=== PATIENT | female | born 2000 | race Caucasian/White ===

== ENCOUNTER 2021-03-05 18:09 | Emergency (ER) | payer OTHER, SELFPAY ==
[2021-03-05 18:20] VITALS: BP 135/65; PULSE 109; RESP 16; TEMP 37.2; O2SAT 99
--- NOTE | 2021-03-05 18:25 | ED.DENTAL ---
HPI - Dental/Oral General Chief complaint: Dental/Oral Stated complaint: tooth pain Time Seen by Provider: 03/05/21 18:25 Source: patient and RN notes reviewed History of Present Illness HPI Narrative: Patient is a 20-year-old female who presents the urgent care with complaints of lower right dental pain. Patient states that she has wisdom tooth pain approximately once per month and it tends to go away on its own. Patient states that she has been attempting to find a dentist/oral surgeon to remove her wisdom teeth and no one accepts her insurance. Patient states that she has been taking Tylenol and ibuprofen for the pain. Patient is reporting of pain for the last 2 to 4 days to the lower right. No other acute complaints. Denies of fever, chills, nausea, vomiting, bad taste in the mouth. No acute distress noted. Patient aware of the plan of care. Some parts of this dictation were generated by voice recognition software and may contain typographical and/or grammatical inaccuracies. Related Data Allergies Allergy/AdvReac Type Severity Reaction Status Date / Time No Known Allergies Allergy Verified 03/05/21 18:33 Review of Systems Review of Systems: Narrative: CONSTITUTIONAL: Denies fever, chills, or sweats. EYES: Denies visual changes, redness, or discharge. ENT: Denies rhinorrhea, congestion, sore throat, or otalgia. Reports of lower right wisdom tooth pain CARDIOVASCULAR: Denies chest pain, palpitations, or edema. RESPIRATORY: Denies cough or dyspnea. GASTROINTESTINAL: Denies abdominal pain, nausea, vomiting, or diarrhea. GENITOURINARY: Denies dysuria or hematuria. SKIN: Denies rash or itching. MUSCULOSKELETAL: Denies back pain, joint pain, or myalgia. NEUROLOGIC: Denies headache, numbness, or weakness. All other systems reviewed are negative, except as documented in HPI. PMFSH Comments At the time of my signature, I reviewed and agree with the nursing past medical, surgical, social, and family history. There is no relevant family history pertinent to the patient complaint. Exam Narrative: Exam Narrative: GENERAL: This is a well-nourished, well-developed patient, in no apparent distress. HEAD: normocephalic, atraumatic. EYES: PERRL. Sclera clear/white. Vision is grossly intact. EARS: External ears normal NOSE: External nose normal with no obvious nasal discharge, nares without redness, no rhinorrhea. THROAT: Mucous membranes moist, posterior pharynx clear. DENTAL: Right lower impacted wisdom tooth, tooth #32 without any notable abscess, erythema or edema NECK: Neck supple CARDIOVASCULAR: Regular rate and rhythm without murmurs, gallops, or rubs. RESPIRATORY: Clear to auscultation. Breath sounds equal bilaterally. No wheezes, rales, or rhonchi. SKIN: warm, intact with no suspicious lesions or rash, good texture and turgor. NEURO: awake, alert, and oriented to person, place and time. There were no obvious focal neurologic abnormalities. EXTREMITIES: No clubbing, cyanosis, or edema. Course Vital Signs Vital signs: Vital Signs Temperature 98.9 F 03/05/21 18:20 Pulse Rate 109 H 03/05/21 18:20 Respiratory Rate 16 03/05/21 18:20 Blood Pressure 135/65 03/05/21 18:20 Pulse Oximetry 99 03/05/21 18:20 Temperature 98.9 F 03/05/21 18:20 Pulse Rate 109 H 03/05/21 18:20 Respiratory Rate 16 03/05/21 18:20 Blood Pressure 135/65 03/05/21 18:20 Pulse Oximetry 99 03/05/21 18:20 Reviewed MDM - Dental/Oral MDM Narrative Medical decision making narrative: Advised the patient to use a ice pack to the lower right jaw as needed for comfort. Continue to take ibuprofen/Tylenol as needed for pain. Be aware that you should not be taking ibuprofen if you are . It is not currently abscessed therefore if you have increased pain associated with swelling, fever, nausea, vomiting, drainage near the area?follow-up. Follow-up with a dentist/PCP within 2 to 5 days or for worsening symptoms or failure to imp
== END 2021-03-05 18:40 | disposition home or self-care (01) ==
PROVIDERS: Emergency Provider Nurse Practitioner Family; PCP Internal Medicine Infectious Disease
DX: K08.89 Other specified disorders of teeth and supporting structures (principal); K01.1 Impacted teeth
CPT/HCPCS: 99213; G0463

== ENCOUNTER 2021-11-13 09:39 | Emergency (ER) | payer OTHER, SELFPAY ==
[2021-11-13 09:46] VITALS: BP 120/68; PULSE 122; RESP 16; TEMP 36.4; O2SAT 100
--- NOTE | 2021-11-13 09:53 | ED.URI ---
HPI - URI/Sore Throat General Chief Complaint: Upper Respiratory Infection Stated Complaint: Cough/Sore Throat Time Seen by Provider: 11/13/21 09:53 Source: patient Mode of arrival: ambulatory Limitations: no limitations History of Present Illness HPI Narrative: 21-year-old female presents with complaint of congestion, sore throat, cough, chills, body aches for 4 days. Low-grade fever. 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 Would like a Covid and flu test. Patient reports history of tachycardia. Wore a Holter monitor and had echo 1 year ago that was normal. All systems reviewed and negative except as noted above. Related Data Home Medications Medication Instructions Recorded Confirmed norgestimate-ethinyl estradiol 1 tablet PO DAILY 11/13/21 11/13/21 [Mel] Allergies Allergy/AdvReac Type Severity Reaction Status Date / Time No Known Allergies Allergy Verified 11/13/21 09:42 Review of Systems Review of Systems: CONSTITUTIONAL: Reports fever, chills, or sweats. EYES: Denies visual changes, redness, or discharge. ENT: Reports rhinorrhea, congestion, sore throat. Denies otalgia. CARDIOVASCULAR: Denies chest pain, palpitations, or edema. RESPIRATORY: Reports cough. Denies dyspnea. GASTROINTESTINAL: Denies abdominal pain, nausea, vomiting, or diarrhea. GENITOURINARY: Denies dysuria or hematuria. SKIN: Denies rash or itching. MUSCULOSKELETAL: Denies back pain, joint pain, or myalgia. NEUROLOGIC: Denies headache, numbness, or weakness. PSYCHIATRIC: Denies anxiety or depression. All other systems reviewed are negative, except as documented in HPI. PMFSH Comments At time of signature, agree with nursing past medical, surgical, social and family history. There is no relevant family history pertinent to the presenting complaint. Exam Narrative: GENERAL: This is a well-nourished, well-developed patient, in no apparent distress. HEAD: normocephalic, atraumatic. EYES: PERRL. Sclera clear/white. Vision is grossly intact. EARS: External ears normal, auditory canals clear and without drainage, TMs normal without perforation. Hearing grossly intact. NOSE: External nose normal with no obvious nasal discharge, nares without redness, no rhinorrhea. THROAT: Mucous membranes moist. Mild erythema. NECK: Neck supple, non-tender without lymphadenopathy, masses or thyromegaly. CARDIOVASCULAR: Tachycardia and normal rhythm without murmurs, gallops, or rubs. RESPIRATORY: Clear to auscultation. Breath sounds equal bilaterally. No wheezes, rales, or rhonchi. SKIN: warm, Dry, intact with no suspicious lesions or rash, good texture and turgor. NEURO: awake, alert, and oriented to person, place and time. There were no obvious focal neurologic abnormalities. EXTREMITIES: Normal range of motion Course Course Level of Care: Express Care Visit Vital Signs Vital signs: Vital Signs Temperature 36.4 C L 11/13/21 09:46 Pulse Rate 122 H 11/13/21 09:46 Respiratory Rate 16 11/13/21 09:46 Blood Pressure 120/68 11/13/21 09:46 Pulse Oximetry 100 11/13/21 09:46 Temperature 36.4 C L 11/13/21 09:46 Pulse Rate 122 H 11/13/21 09:46 Respiratory Rate 16 11/13/21 09:46 Blood Pressure 120/68 11/13/21 09:46 Pulse Oximetry 100 11/13/21 09:46 Reviewed MDM - URI/Sore Throat MDM Narrative Medical decision making narrative: Patient is aware of diagnosis, understands and agrees to treatment plan. Anticipatory guidance given. Patient agrees to follow-up as directed and is aware of reasons to seek care at the emergency department. Portions of this record may have been created with voice recognition software Differential Diagnosis Differential diagnosis: Likely upper respiratory infection, sinusitis, viral infection, bronchitis, influenza and pharyngitis Lab Data Labs: Lab Results 11/13/21 Range/Units Unknown POC SARS CoV-2 Ag Negative (Negative) Influenza A Screen Negative
== END 2021-11-13 10:35 | disposition home or self-care (01) ==
PROVIDERS: Emergency Provider Nurse Practitioner Family; PCP Internal Medicine Infectious Disease
DX: J06.9 Acute upper respiratory infection, unspecified (principal); Z20.822 Contact with and (suspected) exposure to COVID-19
CPT/HCPCS: 87081; 87426; 87804; 87880; 99213; C9803; G0463

== ENCOUNTER 2022-01-27 13:49 | Emergency (ER) | payer OTHER, SELFPAY ==
[2022-01-27 13:56] VITALS: BP 113/42; PULSE 117; RESP 16; TEMP 36.7; O2SAT 99
--- NOTE | 2022-01-27 14:24 | ED.URI ---
HPI - URI/Sore Throat General Chief Complaint: Upper Respiratory Infection Stated Complaint: sore throat back aches Time Seen by Provider: 01/27/22 14:15 Source: patient and RN notes reviewed Mode of arrival: ambulatory Limitations: no limitations History of Present Illness HPI Narrative: 21-year-old female presents with concern for sore throat, painful swallowing, upper left back ache. She reports history of urinary tract infections. She reports she is also had sinus congestion, pressure, cough for several weeks, she was prescribed an antibiotic, however she was unable to finish antibiotic because it gave her a yeast infection. She reports her sore throat started yesterday. She reports her backache is worse with coughing and deep breathing. MD elicited complaint: sore throat Related Data Home Medications Medication Instructions Recorded Confirmed norgestimate 0.25 mg-ethinyl 1 tablet PO DAILY 11/13/21 01/27/22 estradiol 35 mcg tablet (Mel) Allergies Allergy/AdvReac Type Severity Reaction Status Date / Time No Known Allergies Allergy Verified 11/13/21 09:42 Review of Systems Review of Systems: CONSTITUTIONAL: Reports malaise. Denies chills, sweats, or fever. EYES: Denies visual changes, redness, or discharge. ENT: Reports rhinorrhea, congestion, sore throat. CARDIOVASCULAR: Denies chest pain, palpitations, or edema. RESPIRATORY: Reports cough. Denies dyspnea. GASTROINTESTINAL: Denies abdominal pain, nausea, vomiting, diarrhea SKIN: Denies rash or itching. MUSCULOSKELETAL: Denies myalgia. Reports left upper back pain NEUROLOGIC: Denies headache. All systems reviewed & are unremarkable except as noted in HPI and below [facility] Comments At time of signature, agree with nursing past medical, surgical, social and family history. There is no relevant family history pertinent to the presenting complaint Exam Narrative: GENERAL: Toxic appearing and in no acute distress. HEAD: Normocephalic EYES: PERRLA, conjunctivae clear ENT: Nares clear, turbinates edematous and erythematous. Mucous membranes moist. TM pearly william with dull light reflex bilaterally; no tragal tenderness. Oropharynx erythematous without lesions. Tonsils enlarged and without exudate, no drooling, no hoarseness, no trismus, uvula midline. NECK: Supple. No lymphadenopathy CHEST: Clear to auscultation, breath sounds equal. No wheezing, rhonchi, rales, or stridor. No respiratory distress, speaks in full sentences. MUSC: No tenderness to the left upper back, no bruising HEART: Regular rate and rhythm. No murmur heard. SKIN: Warm, dry, no rash. NEURO: Alert and oriented x3. PSYCH: Normal mood and affect Course Course Emergency Course: Patient's urinalysis looks unremarkable, however will cover strep bacteria with Augmentin to also cover any potential urine bacteria Patient is aware of diagnosis, understands and agrees to treatment plan. Anticipatory guidance given. Patient agrees to follow-up as directed and is aware of reasons to seek care at the emergency department. Portions of this record may have been created with voice recognition software Level of Care: Express Care Visit Vital Signs Vital signs: Vital Signs Temperature 98.0 F 01/27/22 13:56 Pulse Rate 117 H 01/27/22 13:56 Respiratory Rate 16 01/27/22 13:56 Blood Pressure 113/42 L 01/27/22 13:56 Pulse Oximetry 99 01/27/22 13:56 Oxygen Delivery Room Air 01/27/22 13:56 Temperature 98.0 F 01/27/22 13:56 Pulse Rate 117 H 01/27/22 13:56 Respiratory Rate 16 01/27/22 13:56 Blood Pressure 113/42 L 01/27/22 13:56 Pulse Oximetry 99 01/27/22 13:56 Oxygen Delivery Room Air 01/27/22 13:56 Reviewed. MDM - URI/Sore Throat MDM Narrative Medical decision making narrative: Differential diagnosis considered: Manzo virus, strep pharyngitis, allergic rhinitis, upper respiratory tract infection, sinusitis, rhinosinusitis, nasopharyngitis. viral pharyngitis, otitis me
== END 2022-01-27 14:32 | disposition home or self-care (01) ==
PROVIDERS: Emergency Provider Nurse Practitioner; PCP Internal Medicine Infectious Disease
DX: J02.0 Streptococcal pharyngitis (principal)
CPT/HCPCS: 81003; 87880; 99213; G0463

== ENCOUNTER 2022-02-16 12:21 | Emergency (ER) | payer OTHER, SELFPAY ==
[2022-02-16 12:40] VITALS: BP 117/73; PULSE 78; RESP 18; TEMP 37.2; O2SAT 100
--- NOTE | 2022-02-16 12:43 | ED.URI ---
HPI - URI/Sore Throat General Chief Complaint: Upper Respiratory Infection Stated Complaint: Sore Throat Time Seen by Provider: 02/16/22 12:45 Source: patient, RN notes reviewed and old records reviewed Mode of arrival: ambulatory Limitations: no limitations History of Present Illness HPI Narrative: 21-year-old female who presents to [facility] care with complaints of right sided throat pain constant on the right side since yesterday. Patient reports that she was treated on the of this month for strep throat and took 7 days worth of oral medication but was going camping and had no way to store the liquid medication so didn't complete the prescription. Patient reports that her throat pain was worse last night and she also has had some nasal drainage for which she has been taking Zyrtec. MD elicited complaint: sore throat Pertinent past history: other (strep throat) Onset (ago): day(s) (2) Related Data Home Medications Medication Instructions Recorded Confirmed norgestimate 0.25 mg-ethinyl 1 tablet PO DAILY 11/13/21 02/16/22 estradiol 35 mcg tablet (Mel) Allergies Allergy/AdvReac Type Severity Reaction Status Date / Time No Known Allergies Allergy Verified 02/16/22 12:42 Review of Systems Review of Systems: CONSTITUTIONAL: Denies fever, chills, or sweats. EYES: Denies visual changes, redness, or discharge. ENT: Positive rhinorrhea, congestion,positive for sore throat, no otalgia. CARDIOVASCULAR: Denies chest pain, palpitations, or edema. RESPIRATORY: Denies cough or dyspnea. GASTROINTESTINAL: Denies abdominal pain, nausea, vomiting, or diarrhea. GENITOURINARY: Denies dysuria or hematuria. SKIN: Denies rash or itching. MUSCULOSKELETAL: Denies back pain, joint pain, or myalgia. NEUROLOGIC: Denies headache, numbness, or weakness. PSYCHIATRIC: Denies anxiety or depression. [facility] Past Medical History Medical History (Updated 02/18/22 @ 08:20 by Laura Lowe NP) Sepsis due to urinary tract infection Surgical History Surgical History (Updated 02/18/22 @ 08:15 by Laura Lowe NP) History of dental surgery gums History of tonsillectomy Social History Social History (Updated 02/16/22 @ 13:06 by Laura L. Chrissy, [employer]) Smoking status: Never smoker Alcohol intake: never Substance use: never Living arrangements: with family Gender identity (if verbalized by the patient): Female Comments At time of signature, agree with nursing past medical, surgical, social and family history. There is no relevant family history pertinent to the presenting complaint Exam Narrative: GENERAL: Well-appearing, well-nourished, and in no acute distress. HEAD: Normocephalic, atraumatic. EYES: PERRLA and EOMI. ENT: Nares with minimal redness clear rhinorrhea no epistaxis. Mucous membranes moist.TM's normal with good light reflex, throat with some redness no lesions or exudates, no tonsils present. NECK: Supple.no lymphadenopathy CHEST: Clear to auscultation. No respiratory distress.SAO2 100% on room air HEART: Regular rate and rhythm. No murmur heard. Normal peripheral pulses. ABDOMEN: Soft, nontender, nondistended, normal active bowel sounds. EXTREMITIES: Normal range of motion. No edema. SKIN: Warm, dry, no rash. NEURO: No focal deficits. Alert and oriented x3. Course Course Level of Care: Express Care Visit Vital Signs Vital signs: Vital Signs Temperature 37.2 C 02/16/22 12:40 Pulse Rate 78 02/16/22 12:40 Respiratory Rate 18 02/16/22 12:40 Blood Pressure 117/73 02/16/22 12:40 Pulse Oximetry 100 02/16/22 12:40 Oxygen Delivery Room Air 02/16/22 12:40 Temperature 37.2 C 02/16/22 12:40 Pulse Rate 78 02/16/22 12:40 Respiratory Rate 18 02/16/22 12:40 Blood Pressure 117/73 02/16/22 12:40 Pulse Oximetry 100 02/16/22 12:40 Oxygen Delivery Room Air 02/16/22 12:40 MDM - URI/Sore Throat Differential Diagnosis Differential diagnosis: Likely upper respiratory
== END 2022-02-16 13:11 | disposition home or self-care (01) ==
PROVIDERS: Emergency Provider Registered Nurse; PCP Internal Medicine Infectious Disease
DX: J06.9 Acute upper respiratory infection, unspecified (principal)
CPT/HCPCS: 87081; 87880; 99213; G0463

== ENCOUNTER 2022-04-30 12:50 | Outpatient (CLI) | payer OTHER, SELFPAY ==
[2022-04-30 13:50] LABS: Beta HCG Quantitative < 2.39 mIU/ML
== END 2022-04-30 12:51 | disposition home or self-care (01) ==
LOC: ANHLAB 12:59
PROVIDERS: PCP Internal Medicine Infectious Disease; Visit Provider Advanced Practice Midwife
DX: N92.0 Excessive and frequent menstruation with regular cycle (principal)
CPT/HCPCS: 36415; 84702

== ENCOUNTER 2022-05-06 12:45 | Outpatient (CLI) | payer OTHER, SELFPAY ==
[2022-05-06 14:52] LABS: Beta HCG Quantitative < 2.39 mIU/ML
== END 2022-05-06 12:46 | disposition home or self-care (01) ==
PROVIDERS: PCP Internal Medicine Infectious Disease; Visit Provider Obstetrics & Gynecology
DX: N91.2 Amenorrhea, unspecified (principal)
CPT/HCPCS: 36415; 84702

== ENCOUNTER 2022-05-20 18:48 | Emergency (ER) | payer OTHER, SELFPAY ==
--- NOTE | ~2022-05-20 | US_ITS ---
EXAMINATION: US pelvic complete w TV DATE: 05/20/2022 21:49 INDICATION: Right lower quadrant abdominal pain. Vaginal bleeding. TECHNIQUE: Multiple transabdominal and endovaginal sonographic images of the pelvis were obtained. COMPARISON: None. FINDINGS: The uterus measures 1.8 x 4.8 x 2.7 cm. The endometrial complex measures 13 mm in thickness. 3 mm an echoic nabothian cyst at the cervix. There is a minimal amount of anechoic fluid measuring 1 mm in th ickness within the endocervical canal. The right ovary measures 3.9 x 3.1 x 1.9 cm. The left ovary me asures 2.8 x 1.8 x 2.2 cm. There are a few subcentimeter anechoic cysts/follicles in both ovaries. Va scular flow with arterial waveforms identified in both ovaries on color Doppler. There is no free flu id in the pelvis. Minimal anechoic likely physiologic free fluid in the cul-de-sac. IMPRESSION: 1. Minimal likely physiologic free fluid in the cul-de-sac and minimal fluid within the endocervical canal. 2. A few subcentimeter cysts/follicles in both ovaries, each of which demonstrates internal arterial vascular flow on color Doppler. Reviewed, dictated and finalized at location A. IMPRESSION: 1. Minimal likely physiologic free fluid in the cul-de-sac and minimal fluid wi thin the endocervical canal. 2. A few subcentimeter cysts/follicles in both ovaries, each of which demonstra mulu internal arterial vascular flow on color Doppler.
[2022-05-20 18:50] VITALS: BP 125/84; PULSE 78; RESP 16; TEMP 36.7; O2SAT 100
--- NOTE | 2022-05-20 19:09 | ED.FEMALEGU ---
HPI - Female Genitourinary General Chief complaint: Vaginal Bleeding <Leyla Higgins PA-C - Last Filed: 05/20/22 22:40> Stated complaint: heavy bleeding <JUAN Johnson Last Filed: 05/20/22 22:40> Time Seen by Provider: 05/20/22 19:02 <JUAN Johnson Last Filed: 05/20/22 22:40> Source: patient <JUAN Johnson Last Filed: 05/20/22 22:40> Mode of arrival: ambulatory <JUAN Johnson Last Filed: 05/20/22 22:40> Limitations: no limitations <JUAN Johnson Last Filed: 05/20/22 22:40> History of Present Illness HPI Narrative: Patient is a 21-year-old female who presents to the ED with report of vaginal bleeding. Patient reports she last had her menstrual cycle on 05/07, which was normal. She then developed lower abdominal cramping today, along with bright red vaginal bleeding. She called her PUBLISHING SYSTEMS ANALYST and was referred here for further evaluation. She notes the bleeding has been mild. She is not soaking through pads or tampons. She has had some urinary urgency as well, but denies dysuria, hematuria, nausea, vomiting. She has not taken anything for pain today. Patient has an appointment to see her PUBLISHING SYSTEMS ANALYST on Wednesday. Patient is not currently on any control. <JUAN Johnson Last Filed: 05/20/22 22:40> Related Data Home medications: Home Medications Medication Instructions Recorded Confirmed norgestimate 0.25 mg-ethinyl 1 tablet PO DAILY 11/13/21 02/16/22 estradiol 35 mcg tablet (Mel) <JUAN Johnson Last Filed: 05/20/22 22:40> Allergies/Adverse reactions: Allergies Allergy/AdvReac Type Severity Reaction Status Date / Time No Known Allergies Allergy Verified 05/20/22 19:05 <JUAN Johnson Last Filed: 05/20/22 22:40> Review of Systems Review of Systems: CONSTITUTIONAL: Denies fever, chills, or sweats. CARDIOVASCULAR: Denies chest pain. RESPIRATORY: Denies dyspnea. GASTROINTESTINAL: Reports lower abdominal cramping. Denies nausea, vomiting. GENITOURINARY: Reports urinary urgency. Denies dysuria or hematuria. MUSCULOSKELETAL: Denies back pain, joint pain, or myalgia. <Leyla Higgins PA-C - Last Filed: 05/20/22 22:40> All systems reviewed & are unremarkable except as noted in HPI and below <Leyla Higgins PA-C - Last Filed: 05/20/22 22:40> [facility] Past Medical History Medical History: Medical History Sepsis due to urinary tract infection <Leyla Higgins PA-C - Last Filed: 05/20/22 22:40> Surgical History Surgical History: Surgical History History of dental surgery gums History of tonsillectomy <Leyla Higgins PA-C - Last Filed: 05/20/22 22:40> Social History Social History: Social History Smoking status: Never smoker Alcohol intake: never Substance use: never Gender identity (if verbalized by the patient): Female <Leyla Higgins PA-C - Last Filed: 05/20/22 22:40> Exam Narrative: GENERAL: Well appearing, obese, non-toxic, in no acute distress. HEAD: Normocephalic, atraumatic. NECK: Supple. No adenopathy, no masses. RESPIRATORY: Airway patent, respirations nonlabored. Clear to auscultation bilaterally, no rales, rhonchi, wheezing. CARDIOVASCULAR: Regular rate and rhythm without murmurs, rubs, or gallops. Peripheral pulses 2+ and equal bilaterally. ABDOMINAL: Soft, mild tenderness to palpation in suprapubic region, RLQ, nondistended, no hepatosplenomegaly. Normoactive BS. PELVIC: Normal external genitalia. No genital lesions. Some mild bleeding coming from cervical os, dark red, mixed with watery yellow discharge. Blood easily cleared from vaginal vault. No signs of pooling or hemorrhage. No signific
[2022-05-20 19:41] LABS: Basophils Percent Auto 0.2 % (0.2-1.2); Eosinophils Absolute Auto 0.1 K/mm3 (0-0.3); Eosinophils Percent Auto 0.9 % (0-4.4); Hematocrit 41.2 % (37.0-47.0); Immature Granulocyte Absolute 0.03 K/mm3 (0.00-0.031); Immature Granulocyte Percent A 0.3 % (0-0.5); Lymphocytes Absolute Auto 2.88 K/mm3 (0.9-3.2); Lymphocytes Percent Auto 28.7 % (18.3-44.2); Mean Corpuscular Volume 88.2 fl (80-100); Mean Platelet Volume 9.4 fl (7.4-10.4); Monocytes Absolute Auto 0.6 K/mm3 (0.1-0.6); Monocytes Percent Auto 5.7 % (2.6-8.5); Neutrophils Absolute Auto 6.5 K/mm3 (1.3-6.7); Neutrophils Percent Auto 64.2 % (45.5-73.1); Platelet Count Result 251 k/mm3 (150-375); Red Blood Count 4.67 M/mm3 (4.2-5.4); Red Cell Distribution Width 12.7 % (11.5-14.5); White Blood Count 10.1 K/mm3 (4.5-10.0)
[2022-05-20 19:58] LABS: Alanine Aminotransferase 43 U/L (6-35); Albumin Level 4.7 g/dL (3.5-5.1); Alkaline Phosphatase 83 U/L (38-126); Anion Gap 12 mmol/L (8-16); Aspartate Amino Transferase 36 U/L (14-36); Bilirubin,Total 0.7 mg/dL (0.2-1.3); Blood Urea Nitrogen 13 mg/dL (7-17); Calcium 9.4 mg/dL (8.4-10.2); Carbon Dioxide 25 mmol/L (22-30); Chloride 101 mmol/L (98-107); Estimated CRCL calculation 142 ml/min; Estimated Glomerular Filt Rate > 60; Glucose 91 mg/dL (65-110); Sodium 138 mmol/L (137-145)
[2022-05-20 20:01] LABS: Appearance Urine Clear (Clear); Bilirubin Urine Negative (Negative); Blood Urine 2+ (Negative); Color Urine Yellow (Yellow); Glucose Urine UA Negative (Negative); Ketones Urine 1+ mg/dL (Negative); Leukocyte Esterase Ur Negative LEU/UL (Negative); Nitrate Urine Negative (Negative); Protein Urine Negative (Negative); Specific Grav Ur >= 1.030 (1.001-1.035); Urobilinogen Urine 0.2 mg/dL (<2.0); pH Urine 5.5 (5.0-9.0)
[2022-05-20 20:05] LABS: Mucus Urine Rare /lpf; RBC Urine 21-50 /hpf (0-2); Squamous Epithelial Cell Urine Few /hpf (Few); WBC Urine 0-3 /hpf
[2022-05-20 20:09] LABS: Add Urine Microscopic? YES
[2022-05-20 22:47] VITALS: PULSE 88; RESP 18; O2SAT 98
== END 2022-05-20 22:49 | disposition home or self-care (01) ==
PROVIDERS: Nurse Practitioner Family; Physician Assistant; Emergency Provider Emergency Medicine; PCP Internal Medicine Infectious Disease
DX: N93.8 Other specified abnormal uterine and vaginal bleeding (principal); R10.30 Lower abdominal pain, unspecified
CPT/HCPCS: 36415; 76830; 76856; 80053; 81001; 81025; 85025; 87070; 87491; 87591; 87808; 99284

== ENCOUNTER 2022-06-25 11:54 | Outpatient (RCR) | payer OTHER, SELFPAY ==
[2022-06-25 12:58] LABS: Beta HCG Quantitative < 2.39 mIU/ML
== END 2022-09-23 23:59 | disposition home or self-care (01) ==
LOC: ANHLAB 11:54
PROVIDERS: PCP Internal Medicine Infectious Disease; Visit Provider Advanced Practice Midwife
DX: N91.2 Amenorrhea, unspecified (principal)
CPT/HCPCS: 36415; 84702; 85461; 86850; 86900; 86901

== ENCOUNTER 2022-11-01 20:24 | Emergency (ER) | payer OTHER, SELFPAY ==
[2022-11-01 20:25] VITALS: BP 123/71; PULSE 90; RESP 16; TEMP 36.6; O2SAT 100
[2022-11-01 21:35] LABS: Basophils Percent Auto 0.2 % (0.2-1.2); Eosinophils Absolute Auto 0.1 K/mm3 (0-0.3); Eosinophils Percent Auto 0.6 % (0-4.4); Hematocrit 41.3 % (37.0-47.0); Hemoglobin 13.6 g/dL (12.0-15.0); Immature Granulocyte Absolute 0.04 K/mm3 (0.00-0.031); Immature Granulocyte Percent A 0.4 % (0-0.5); Lymphocytes Absolute Auto 1.93 K/mm3 (0.9-3.2); Lymphocytes Percent Auto 18.8 % (18.3-44.2); Mean Corpuscular HGB Conc 32.9 g/dl (32-36); Mean Corpuscular Volume 88.1 fl (80-100); Mean Platelet Volume 9.3 fl (7.4-10.4); Monocytes Absolute Auto 0.7 K/mm3 (0.1-0.6); Monocytes Percent Auto 6.3 % (2.6-8.5); Neutrophils Absolute Auto 7.5 K/mm3 (1.3-6.7); Neutrophils Percent Auto 73.7 % (45.5-73.1); Platelet Count Result 239 k/mm3 (150-375); Red Blood Count 4.69 M/mm3 (4.2-5.4); Red Cell Distribution Width 13.2 % (11.5-14.5); White Blood Count 10.2 K/mm3 (4.5-10.0)
[2022-11-01 21:41] LABS: Appearance Urine Clear (Clear); Bacteria Urine None Seen /hpf; Bilirubin Urine Negative (Negative); Blood Urine Negative (Negative); Color Urine Yellow (Yellow); Glucose Urine UA Negative (Negative); Ketones Urine Trace mg/dL (Negative); Leukocyte Esterase Ur Trace LEU/UL (Negative); Nitrate Urine Negative (Negative); Non Pathogenic Casts 0-2; Protein Urine Negative (Negative); RBC Urine 0-2 /hpf (0-2); Specific Grav Ur 1.016 (1.001-1.035); Squamous Epithelial Cell Urine Occasional /hpf (Few); Urobilinogen Urine 0.2 mg/dL (<2.0); WBC Urine 0-5 /hpf; pH Urine 5.5 (5.0-9.0)
[2022-11-01 21:44] LABS: Add Urine Microscopic? YES
--- NOTE | 2022-11-02 00:13 | ED.FEMALEGU ---
HPI - Female Genitourinary General Chief complaint: Vaginal Bleeding Stated complaint: vaginal bleeding 6.5 weeks Time Seen by Provider: 11/01/22 23:54 History of Present Illness HPI Narrative: 21-year-old female who is currently about 6 weeks here for evaluation of nausea and vomiting over the past 3 days. States that she has been unable to tolerate any p.o. over the past day. Attempted pyridoxine without relief. She also notes light pink spotting this morning but no brisk vaginal bleeding or abdominal cramping. No dysuria, urgency, frequency, abdominal pain. Related Data Home Medications Medication Instructions Recorded Confirmed norgestimate 0.25 mg-ethinyl 1 tablet PO DAILY 11/13/21 02/16/22 estradiol 35 mcg tablet (Mel) Allergies Allergy/AdvReac Type Severity Reaction Status Date / Time No Known Allergies Allergy Verified 11/01/22 20:25 Review of Systems Review of Systems: Gen.: Denies fevers or chills Eyes: Denies eye pain or visual change ENT: Denies congestion Respiratory: Denies shortness of breath or cough CV: Denies chest pain or palpitations GI: reports nausea and vomiting. Denies abdominal pain nausea, emesis or diarrhea reports vaginal spotting. Denies burning, urgency, frequency or hematuria Musculoskeletal: Denies back pain or muscle pain Neuro: Denies numbness, tingling, weakness or focal weakness Skin: Denies rash Except as documented, all other systems reviewed and negative PMFSH Past Medical History Medical History Sepsis due to urinary tract infection Surgical History Surgical History History of dental surgery gums History of tonsillectomy Social History Social History Smoking status: Never smoker Alcohol intake: never Substance use: never Living arrangements: with family Gender identity (if verbalized by the patient): Female Exam Narrative: APPEARANCE: Well appearing, no pain in distress, well-nourished. Head: Normocephalic and atraumatic. EYES: PERRLA/EOMI, conjunctivae clear NOSE: No nasal drainage EARS: External ear normal in appearance THROAT: Oropharynx is clear. Mucous membranes are moist. NECK: Supple. No adenopathy, no masses. RESPIRATORY: Airway patent, respirations nonlabored. Clear to auscultation bilaterally, no rales, rhonchi, wheezing. CARDIOVASCULAR: Regular rate and rhythm without murmurs, rubs, or gallops. ABDOMINAL: Normoactive bowel sounds. Soft, nontender, nondistended. No rebound tenderness or guarding. MUSCULOSKELETAL: Extremities are warm and well-perfused. Moves all extremities well. No edema. NEURO: Normal speech. No focal neurologic deficits. SKIN: Skin is warm and dry. No rashes. PSYCHIATRIC: Normal affect/mood. Course Vital Signs Vital signs: Vital Signs Temperature 97.9 F 11/01/22 20:25 Pulse Rate 90 11/01/22 20:25 Respiratory Rate 16 11/01/22 20:25 Blood Pressure 123/71 11/01/22 20:25 Pulse Oximetry 100 11/01/22 20:25 Oxygen Delivery Room Air 11/01/22 20:25 Temperature 98 F 11/02/22 01:54 Pulse Rate 69 11/02/22 01:54 Respiratory Rate 18 11/02/22 01:54 Blood Pressure 118/69 11/02/22 01:54 Pulse Oximetry 99 11/02/22 01:54 Oxygen Delivery Room Air 11/01/22 20:25 MDM - Female Genitourinary MDM Narrative Medical decision making narrative: 21-year-old female who is currently about 7 weeks by LMP here for evaluation of nausea, vomiting and light pink spotting this morning. She has already had an ultrasound to confirm IUP 4 days ago by her blueprint duplicator; bedside transabdominal ultrasound was done here but difficult to definitively visualize heart tones/gestational sac. Formal US not available in ED currently. Patient is nontoxic in appearance and has normal vital signs,
[2022-11-02] MEDS: LACTATED RINGERS 1,000 ML 999 ML IV CONT (00:44)
[2022-11-02 01:54] VITALS: BP 118/69; PULSE 69; RESP 18; TEMP 36.6; O2SAT 99
== END 2022-11-02 01:55 | disposition home or self-care (01) ==
PROVIDERS: Emergency Medicine; Emergency Provider Physician Assistant; PCP Obstetrics & Gynecology
DX: O26.891 Other specified pregnancy related conditions, first trimester (principal); R11.2 Nausea with vomiting, unspecified; Z3A.01 Less than 8 weeks gestation of pregnancy
CPT/HCPCS: 36415; 81001; 84702; 85025; 85461; 86850; 86900; 86901; 96360; 99283; J7120

== ENCOUNTER 2023-01-19 18:07 | Observation (INO) | payer OTHER, SELFPAY ==
[2023-01-19] VITALS (43 sets, daily range): BP systolic 113–152; BP diastolic 66–77; PULSE 60–110; O2SAT 98–100
--- NOTE | 2023-01-19 18:07 | OBADM ---
This patient, Kush Jaffe, admitted to the OB room OB Post 112 for observation. for C/O nausea and vomiting x1d and feeling shaky . Patient/family oriented to hospital policies and general routines including ID bracelet, bed and alarms, visiting hours, pain management, procedures, bathroom and other care routines, personal items, smoking policy, room service/diet, and visiting hours. Patient/Family are encouraged to report perceived risks to care and to ask questions if they do not understand what they are told or what they should do.
--- NOTE | 2023-01-19 19:00 | PC.NURSE ---
Patient states feeling much better since fluid bolus infusing.
--- NOTE | 2023-01-19 19:05 | PC.NURSE ---
1905 IV and labwork obtained. Denies need for Zofran at this time. Would like to see how IVF make her feel.
[2023-01-19] MEDS: DEXTROSE 5%/0.45% SOD CHL 1,000 ML 999 ML IV CONT (19:15)
[2023-01-19 19:24] LABS: Alanine Aminotransferase 29 U/L (6-35); Albumin Level 3.7 g/dL (3.5-5.1); Alkaline Phosphatase 76 U/L (38-126); Anion Gap 5 mmol/L (8-16); Aspartate Amino Transferase 30 U/L (14-36); Bilirubin,Total 0.6 mg/dL (0.2-1.3); Blood Urea Nitrogen 6 mg/dL (7-17); Calcium 8.8 mg/dL (8.4-10.2); Carbon Dioxide 23 mmol/L (22-30); Chloride 103 mmol/L (98-107); Estimated Glomerular Filt Rate > 60; Glucose 87 mg/dL (65-110); Potassium 3.5 mmol/L (3.4-5.0); Sodium 131 mmol/L (137-145)
[2023-01-19 19:40] LABS: Bacteria Urine None Seen /hpf; Non Pathogenic Casts 0-2; RBC Urine 0-2 /hpf (0-2); Squamous Epithelial Cell Urine None seen /hpf (Few); WBC Urine 0-5 /hpf
[2023-01-19 19:44] LABS: Appearance Urine Clear (Clear); Bilirubin Urine 1+ (Negative); Blood Urine Negative (Negative); Color Urine Dark Yellow (Yellow); Glucose Urine UA Negative (Negative); Ketones Urine 1+ mg/dL (Negative); Leukocyte Esterase Ur Negative LEU/UL (Negative); Nitrate Urine Negative (Negative); Protein Urine 1+ mg/dL (Negative); Specific Grav Ur 1.027 (1.001-1.035); pH Urine 6.5 (5.0-9.0)
[2023-01-19 19:55] LABS: Add Urine Microscopic? YES
[2023-01-19] MEDS: KCL 20 MEQ/0.45% NS 1,000 ML 150 ML IV CONT (20:20)
[2023-01-19] MEDS: ONDANSETRON INJ 4 MG/2 ML VIAL IV PUSH (21:06)
--- NOTE | 2023-01-22 08:19 | P.PNOB_ITS ---
OB - Triage/Final Diagnosis Visit Information Comments/Additional reasons for admission: I have assessed the risk for this patient, Kush Jaffe, and determined that she would benefit from observation care. Evaluation Laboratory results: Laboratory Tests 01/19/23 19:03 Sodium 131 L Potassium 3.5 Chloride 103 Carbon Dioxide 23 Anion Gap 5 L BUN 6 L D Creatinine 0.40 L Estim Creat Clear Calc Not Reportable Estimated GFR > 60 Glucose 87 Calcium 8.8 Total Bilirubin 0.6 AST 30 ALT 29 Alkaline Phosphatase 76 Total Protein 7.0 Albumin 3.7 Urine Color Dark yellow Urine Appearance Clear Urine pH 6.5 Ur Specific [place] 1.027 Urine Protein 1+ H Urine Glucose (UA) Negative Urine Ketones 1+ H Ur Blood (Man) Negative Urine Nitrate Negative Urine Bilirubin 1+ H Urine Urobilinogen 1.0 Leukocyte Esterase Rfl Negative Urine RBC 0-2 Urine WBC 0-5 Ur Squamous Epith Cells None seen Urine Bacteria None seen Urine Casts 0-2 Final Diagnosis (1) Hyperemesis: Code(s): R11.10 - Vomiting, unspecified Status: Acute
== END 2023-01-19 21:50 | disposition home or self-care (01) ==
PROVIDERS: Admitting Provider Obstetrics & Gynecology; PCP Internal Medicine Infectious Disease; Visit Provider Obstetrics & Gynecology
DX: O21.8 Other vomiting complicating pregnancy (principal); Z3A.18 18 weeks gestation of pregnancy
CPT/HCPCS: 36415; 80053; 81001; J2405

== ENCOUNTER 2023-02-18 20:08 | Observation (INO) | payer OTHER, SELFPAY ==
[2023-02-18 20:44] LABS: Appearance Urine Clear (Clear); Bilirubin Urine Negative (Negative); Blood Urine Negative (Negative); Color Urine Yellow (Yellow); Glucose Urine UA Negative (Negative); Ketones Urine Negative (Negative); Leukocyte Esterase Ur Negative LEU/UL (Negative); Nitrate Urine Negative (Negative); Protein Urine Negative (Negative); Specific Grav Ur 1.009 (1.001-1.035); Urobilinogen Urine 0.2 mg/dL (<2.0)
[2023-02-18 20:45] LABS: Add Urine Microscopic? NO
--- NOTE | 2023-02-18 20:53 | PC.NURSE ---
FHTs doppled 155 with accelerations noted and movement heard. ROM+ results negative
--- NOTE | 2023-02-18 20:55 | PC.NURSE ---
Eunice BERNARD called via junior copywriter and informed that pt arrived with c/o leaking, and cramping. Mild irritability noted with no contractions, ROM+ negative and FHTs 155. Orders to discharge patient home with oral hydration encouragement.
[2023-02-18 20:59] VITALS: BP 108/63; PULSE 86
[2023-02-18 21:01] VITALS: BMI 32.5
--- NOTE | 2023-02-18 21:01 | OBADM ---
This patient, Kush Jaffe, admitted to the OB room OB Post 117 for observation. Patient/family oriented to hospital policies and general routines including ID bracelet, bed and alarms, visiting hours, pain management, procedures, bathroom and other care routines, personal items, smoking policy, room service/diet, and visiting hours. Patient/Family are encouraged to report perceived risks to care and to ask questions if they do not understand what they are told or what they should do.
--- NOTE | 2023-02-19 16:22 | P.PNOB_ITS ---
OB - Triage/Final Diagnosis Visit Information Date of evaluation: 02/18/23 Reason for evaluation: threatened labor Comments/Additional reasons for admission: I have assessed the risk for this patient, Kush Jaffe, and determined that she would benefit from observation care. Evaluation Laboratory results: Laboratory Tests 02/18/23 20:38 Urine Color Yellow Urine Appearance Clear Urine pH 6.0 Ur Specific [place] 1.009 Urine Protein Negative Urine Glucose (UA) Negative Urine Ketones Negative Ur Blood (Man) Negative Urine Nitrate Negative Urine Bilirubin Negative Urine Urobilinogen 0.2 Leukocyte Esterase Rfl Negative Vital signs: Vital Signs - 24 hr 02/18/23 20:59 Pulse Rate 86 Blood Pressure 108/63
== END 2023-02-18 21:12 | disposition home or self-care (01) ==
PROVIDERS: Admitting Provider Obstetrics & Gynecology; PCP Internal Medicine Infectious Disease; Visit Provider Obstetrics & Gynecology
DX: O47.02 False labor before 37 completed weeks of gestation, second trimester (principal); Z3A.22 22 weeks gestation of pregnancy
CPT/HCPCS: 81003; G0378; G0379

== ENCOUNTER 2023-03-10 18:42 | Outpatient (CLI) | payer OTHER, SELFPAY ==
[2023-03-10 19:05] VITALS: BP 111/64; PULSE 89
[2023-03-10 19:06] VITALS: BP 105/70; PULSE 93
[2023-03-10] MEDS: ACETAMINOPHEN/BUTALBITAL/CAFFEINE 325-50-40 MG TABLET (FIORICET) 1 TAB PO (19:20)
--- NOTE | 2023-03-10 19:34 | PC.NURSE ---
1822- Mian Marin notified of patients arrival and administration of Fioricet. Pt ok to send home. 1824- Pt educated that if symptoms persist she should contact CNM and inquire about an RX
== END 2023-03-10 19:28 | disposition home or self-care (01) ==
LOC: ANHOBOP 18:47 → ANHOBPP 18:50
PROVIDERS: PCP Internal Medicine Infectious Disease; Visit Provider Advanced Practice Midwife
DX: R51.9 Headache, unspecified (principal)
CPT/HCPCS: 99199; A9270

== ENCOUNTER 2023-03-19 20:03 | Outpatient (CLI) | payer OTHER, SELFPAY | END 2023-03-19 20:04 | disposition home or self-care (01) | LOC: ANHOBOP 20:08 | PROVIDERS: PCP Internal Medicine Infectious Disease; Visit Provider Obstetrics & Gynecology | DX: O13.9 Gestational [pregnancy-induced] hypertension without significant proteinuria, unspecified trimester (principal) | CPT/HCPCS: 99199 ==

== ENCOUNTER 2023-05-25 13:42 | Observation (INO) | payer OTHER, SELFPAY ==
--- NOTE | ~2023-05-25 | US_ITS ---
EXAMINATION: US renal BI DATE: 05/25/2023 15:26 INDICATION: Right-sided back pain. Third trimester of . TECHNIQUE: Multiple ultrasound grayscale images of the kidneys were obtained. COMPARISON: None. FINDINGS: The right kidney measures 12.7 x 6.5 x 6.3 cm. The left kidney measures 12.3 x 6.8 x 5.5 cm. The kidn eys demonstrate normal parenchymal echogenicity. There is moderate right hydronephrosis. A right-side d urine jet is not visualized in the bladder. IMPRESSION: 1. Moderate right hydronephrosis. Reviewed, dictated and finalized at location E.
[2023-05-25 14:27] LABS: Appearance Urine Clear (Clear); Bilirubin Urine Negative (Negative); Blood Urine Negative (Negative); Color Urine Yellow (Yellow); Glucose Urine UA Trace mg/dL (Negative); Ketones Urine Trace mg/dL (Negative); Leukocyte Esterase Ur Negative LEU/UL (Negative); Nitrate Urine Negative (Negative); Protein Urine Negative (Negative); Specific Grav Ur 1.017 (1.001-1.035); pH Urine 7.5 (5.0-9.0)
[2023-05-25 14:28] VITALS: BMI 29.6
--- NOTE | 2023-05-25 14:28 | ADMGEN ---
This patient, Kush Jaffe, was admitted to OB Post 116-00. Patient/family oriented to hospital policies and general routines including ID bracelet, bed and alarms, visiting hours, pain management, procedures, bathroom and other care routines, personal items, smoking policy, room service/diet, and visiting hours. Information on how to activate the Rapid Response Team has been discussed. Patient/Family are encouraged to report perceived risks to care and to ask questions if they do not understand what they are told or what they should do.
[2023-05-25 14:32] VITALS: BP 112/67; PULSE 95
[2023-05-25 14:36] LABS: Add Urine Microscopic? NO
--- NOTE | 2023-05-25 14:45 | PC.NURSE ---
Mian Marin CNM updated n patient status, tracings, and UA results. Orders received for one time dose of Flexeril and kidney US for flank pain. Patient refuses Flexeril at this time. US orders placed in EMR.
[2023-05-25 14:49] VITALS: BP 112/67
--- NOTE | 2023-05-25 15:46 | PC.NURSE ---
1545-Kandace aguirre CNM at bedside. Orders received to draw CBC and call provider with results. Encourage fluid intake. Patient in agreement with plan.
[2023-05-25 15:56] LABS: Basophils Percent Auto 0.2 % (0.2-1.2); Eosinophils Absolute Auto 0.1 K/mm3 (0-0.3); Eosinophils Percent Auto 1.1 % (0-4.4); Hematocrit 31.9 % (37.0-47.0); Hemoglobin 10.5 g/dL (12.0-15.0); Immature Granulocyte Absolute 0.02 K/mm3 (0.00-0.031); Immature Granulocyte Percent A 0.3 % (0-0.5); Lymphocytes Absolute Auto 1.31 K/mm3 (0.9-3.2); Lymphocytes Percent Auto 19.7 % (18.3-44.2); Mean Corpuscular HGB Conc 32.9 g/dl (32-36); Mean Corpuscular Hemoglobin 27.9 pg (26-34); Mean Corpuscular Volume 84.6 fl (80-100); Mean Platelet Volume 9.6 fl (7.4-10.4); Monocytes Absolute Auto 0.5 K/mm3 (0.1-0.6); Neutrophils Absolute Auto 4.7 K/mm3 (1.3-6.7); Neutrophils Percent Auto 70.7 % (45.5-73.1); Platelet Count Result 196 k/mm3 (150-375); Red Blood Count 3.77 M/mm3 (4.2-5.4); Red Cell Distribution Width 13.3 % (11.5-14.5); White Blood Count 6.7 K/mm3 (4.5-10.0)
--- NOTE | 2023-05-25 16:19 | PC.NURSE ---
Mian Marin notified of CBC results. Encourage patient to drink plenty of water and can send patient home with flexeril or norco. Patient declines either of the medications.
[2023-05-25 16:22] VITALS: TEMP 37.1
--- NOTE | 2023-05-26 11:13 | PM.OBTRLD ---
OB - Triage/Final Diagnosis Visit Information Date of evaluation: 05/25/23 Reason for evaluation: other (flank pain) Comments/Additional reasons for admission: I have assessed the risk for this patient, Kush Jaffe, and determined that she would benefit from observation care. Evaluation Laboratory results: Laboratory Tests 05/25/23 05/25/23 14:11 15:49 WBC 6.7 RBC 3.77 L Hgb 10.5 L D Hct 31.9 L MCV 84.6 MCH 27.9 MCHC 32.9 RDW 13.3 Plt Count 196 MPV 9.6 Immature Gran % (Auto) 0.3 Neut % (Auto) 70.7 Lymph % (Auto) 19.7 [place] % (Auto) 8.0 Eos % (Auto) 1.1 Baso % (Auto) 0.2 Lymph # (Auto) 1.31 [place] # (Auto) 0.5 Eos # (Auto) 0.1 Baso # (Auto) 0.0 Abs Immat Gran (auto) 0.02 Absolute Neuts (auto) 4.7 Absolute Nucleated RBC 0.0 Nucleated RBC % 0.0 Urine Color Yellow Urine Appearance Clear Urine pH 7.5 Ur Specific [place] 1.017 Urine Protein Negative Urine Glucose (UA) Trace H Urine Ketones Trace H Ur Blood (Man) Negative Urine Nitrate Negative Urine Bilirubin Negative Urine Urobilinogen 1.0 Leukocyte Esterase Rfl Negative Vital signs: Vital Signs - 24 hr 05/25/23 14:49 05/25/23 14:32 05/25/23 16:22 Temperature 37.1 C Pulse Rate 95 Blood Pressure 112/67 Blood Pressure [Left Arm] 112/67
== END 2023-05-25 16:29 | disposition home or self-care (01) ==
PROVIDERS: Admitting Provider Obstetrics & Gynecology; PCP Internal Medicine Infectious Disease; Referring Provider Advanced Practice Midwife; Visit Provider Obstetrics & Gynecology
DX: O26.893 Other specified pregnancy related conditions, third trimester (principal); R10.9 Unspecified abdominal pain; Z3A.36 36 weeks gestation of pregnancy
CPT/HCPCS: 36415; 59025; 76775; 81003; 85025; G0378; G0379

== ENCOUNTER 2023-06-14 05:15 | Inpatient (IN) | payer OTHER, SELFPAY ==
[2023-06-14] VITALS (127 sets, daily range): BP systolic 66–135; BP diastolic 28–90; PULSE 30–126; RESP 16–18; TEMP 35.6–37.1; O2SAT 87–100; BMI 33.8
--- NOTE | ~2023-06-14 | XR_ITS ---
XR pelvis 1-2V 06/15/2023 12:52 Indication: Verify sponge count after vaginal delivery. Evaluate for foreign body. Procedure: AP view of the pelvis Comparison: No prior studies for comparison. Findings: Nonobstructive bowel gas pattern. No foreign bodies identified. No significant joint abnorm ality. Impression: 1: No evidence for radiopaque foreign bodies. Reviewed, dictated and finalized at location L. Impression: 1: No evidence for radiopaque foreign bodies.
--- NOTE | 2023-06-14 05:15 | LDADM ---
This patient, Kush Jaffe, was admitted to Labor/Delivery/Recovery 107 on 06/14/23 at 05:15. Plans for labor, pain management and were discussed with patient. Patient/family oriented to hospital policies and general routines including ID bracelet, bed and alarms, visiting hours, pain management, procedures, bathroom and other care routines, personal items, smoking policy, room service/diet and guest tray routines, security routines, and visiting hours. Patient/Family are encouraged to report perceived risks to care and to ask questions if they do not understand what they are told or what they should do. See OBIX for further documentation.
[2023-06-14 06:05] LABS: Basophils Percent Auto 0.1 % (0.2-1.2); Eosinophils Absolute Auto 0.1 K/mm3 (0-0.3); Hematocrit 32.9 % (37.0-47.0); Hemoglobin 10.5 g/dL (12.0-15.0); Immature Granulocyte Absolute 0.03 K/mm3 (0.00-0.031); Immature Granulocyte Percent A 0.4 % (0-0.5); Lymphocytes Absolute Auto 1.88 K/mm3 (0.9-3.2); Lymphocytes Percent Auto 25.8 % (18.3-44.2); Mean Corpuscular HGB Conc 31.9 g/dl (32-36); Mean Corpuscular Hemoglobin 26.6 pg (26-34); Mean Corpuscular Volume 83.3 fl (80-100); Mean Platelet Volume 9.9 fl (7.4-10.4); Monocytes Absolute Auto 0.6 K/mm3 (0.1-0.6); Monocytes Percent Auto 8.8 % (2.6-8.5); Neutrophils Absolute Auto 4.7 K/mm3 (1.3-6.7); Neutrophils Percent Auto 63.9 % (45.5-73.1); Platelet Count Result 200 k/mm3 (150-375); Red Blood Count 3.95 M/mm3 (4.2-5.4); Red Cell Distribution Width 14.3 % (11.5-14.5); White Blood Count 7.3 K/mm3 (4.5-10.0)
[2023-06-14] MEDS: LACTATED RINGERS 1,000 ML 125 ML IV CONT ×2 (06:15→09:01)
[2023-06-14] MEDS: OXYTOCIN 30 UNITS/NS 500 ML 30 UNITS/500 ML BAG IV CONT (06:16)
--- NOTE | 2023-06-14 06:25 | WPDANESEPP ---
Anes - Eval Pre Procedure Procedure: labor epidural Date/Time: 06/14/23 06:25 Surgeon: julián Preop Diagnosis: pain during labor Pre Op Diagnosis: IOL Patient Data Age: 22 Gender: F Height: Weight: Last Vital Signs Pulse 96 06/14/23 06:02 BP 113/71 06/14/23 06:02 Allergies Allergy/AdvReac Type Severity Reaction Status Date / Time No Known Allergies Allergy Verified 11/01/22 20:25 Home Medications Medication Instructions Recorded Confirmed Type sertraline 50 mg tablet 50 mg PO DAILY 05/25/23 05/25/23 History Laboratory Tests 06/14/23 05:51 WBC 7.3 K/mm3 (4.5-10.0) RBC 3.95 L M/mm3 (4.2-5.4) Hgb 10.5 L g/dL (12.0-15.0) Hct 32.9 L % (37.0-47.0) MCV 83.3 fl (80-100) MCH 26.6 pg (26-34) MCHC 31.9 L g/dl (32-36) RDW 14.3 % (11.5-14.5) Plt Count 200 k/mm3 (150-375) MPV 9.9 fl (7.4-10.4) Immature Gran % (Auto) 0.4 % (0-0.5) Neut % (Auto) 63.9 % (45.5-73.1) Lymph % (Auto) 25.8 % (18.3-44.2) [place] % (Auto) 8.8 H % (2.6-8.5) Eos % (Auto) 1.0 % (0-4.4) Baso % (Auto) 0.1 L % (0.2-1.2) Lymph # (Auto) 1.88 K/mm3 (0.9-3.2) [place] # (Auto) 0.6 K/mm3 (0.1-0.6) Eos # (Auto) 0.1 K/mm3 (0-0.3) Baso # (Auto) 0.0 K/mm3 (0.0-0.1) Abs Immat Gran (auto) 0.03 K/mm3 (0.00-0.031) Absolute Neuts (auto) 4.7 K/mm3 (1.3-6.7) Absolute Nucleated RBC 0.0 K/mm3 (0.0-0.012) Nucleated RBC % 0.0 % (0.0-0.2) RPR Pending Patient hx anesthesia problems: none Family hx anesthesia problems: none Results Review: All pre-operative results and documents have been reviewed as part of the pre-operative evaluation. [facility] Past Medical History Medical History (Updated 06/14/23 @ 06:26 by Ivelisse Yu CRNA) IUP (intrauterine ), incidental Sepsis due to urinary tract infection Surgical History Surgical History History of dental surgery gums History of tonsillectomy Family History Family History (Updated 05/25/23 @ 14:35 by Marleen Wilder RN) Other Unknown family medical history Social History Social History Smoking status: Never smoker Alcohol intake: never Substance use: never Living arrangements: with family Gender identity (if verbalized by the patient): Female Spiritual care concerns: No Exam Day of Procedure 06/14/23 06:25
--- NOTE | 2023-06-14 07:33 | WPDOBADMIT ---
Obstetrics - Admit Note Admission Note: record reviewed. No pertinent additions to the history and/or any subsequent changes in the physical findings that are not consistent with the expected course of the were found. IOL, SVE /-2 AROM small amount of clear, odorless fluid. complicated by anxiety/depression, history of migraine Additions to the history and/or subsequent changes in the physical findings follow. None.
--- NOTE | 2023-06-14 08:04 | PM.OBPNLAB ---
Pain Control Date/time seen: 06/14/23 08:04 Comments: VILMA 70/-2, US at vertex
[2023-06-14] MEDS: ONDANSETRON INJ 4 MG/2 ML VIAL IV PUSH (09:45)
[2023-06-14 11:11] LABS: Rapid Plasma Reagin Non-Reactive (NonReactive)
[2023-06-14] MEDS: ACETAMINOPHEN 500 MG TABLET 1000 MG PO (12:10)
[2023-06-14] MEDS: miSOPROStol 200 MCG TABLET 1000 MCG (14:31)
--- NOTE | 2023-06-14 14:39 | PM.OBPRVD ---
OB - Delivery Note Procedure Delivery date: 06/14/23 Procedure: Induction method: AROM and Per Pitocin Protocol Delivery monitor: External FHT and Internal Uterine Route of delivery: Episiotomy description: None Laceration Description: Labial (right) Delivery repair: vicryl Specimen: No Quantitative Blood Loss (ml): 325 Anesthesia type: Epidural Disposition: Floor Baby Date of : 06/14/23 Time of : 14:11 Weeks of gestation at delivery: 39 gender: Male Weight (pounds): 8 Weight (ounces): 2 presentation: vertex position: Left Occiput Anterior Placenta delivery description: Spontaneous Cord Vessel Description: Nuchal Cord (x1) and Loose score one minute: 7 score five minutes: 9 Narrative: baby to warmer for evaluation, mother and baby in stable condition
[2023-06-14] MEDS: OXYTOCIN 30 UNITS/NS 500 ML 30 UNITS/500 ML BAG 125 UNITS IV CONT (14:44)
[2023-06-14] MEDS: diphenhydrAMINE HCl INJ 50 MG/ML VIAL 25 MG IV PUSH (14:44)
--- NOTE | 2023-06-14 15:53 | PC.NURSE ---
[id number] Introductions were made while mother is recovering in room 103. Consulted with patient to assess needs related to and mother has a lengthy successful history with her first child. Mother works well with her infant with encouragement and education. Encouraged understanding of the benefits of skin to skin (demonstrating unwrapping infant and placing upright on her chest), stimulating with massage touch, changing positions to encourage wakefulness, watch for early feeding cues and giving the infant time to demonstrate natural instincts to go to the breast. Infant latched optimally to the left breast in cross cradle laid-back position. Infant was able to maintain latch without discomfort to mother. Encouraged mother to call out for assistance when needed. Reported to the nursery RN.
[2023-06-14] MEDS: ACETAMINOPHEN 325 MG TABLET 650 MG PO (19:00)
[2023-06-14] MEDS: IBUPROFEN 600 MG TABLET PO (19:03)
--- NOTE | 2023-06-14 20:05 | OBPPTRN ---
[id number] Patient transferred to post room #281 via W/C. Support person present. Oriented to unit, room, information board, rooming in, admission packet and security measures. Patient verbalizes understanding.
[2023-06-14] MEDS: DOCUSATE SODIUM 100 MG CAPSULE PO (21:40)
[2023-06-15] MEDS: IBUPROFEN 600 MG TABLET PO ×3 (01:01→15:32)
[2023-06-15] MEDS: ACETAMINOPHEN 325 MG TABLET 650 MG PO ×3 (01:04→15:32)
[2023-06-15 05:33] LABS: Hematocrit 33.1 % (37.0-47.0); Hemoglobin 10.1 g/dL (12.0-15.0)
--- NOTE | 2023-06-15 08:06 | PM.OBPNVD ---
OB - PN: Subj Subjective Date/time seen: 06/15/23 08:06 Interval history: pp day 1 breast feeding doing well would like discharge home OB - PN: Obj Data Labs 06/15/23 04:44 Labs: Laboratory Results - last 24 hr 06/14/23 06/15/23 05:51 04:44 Hgb 10.1 L Hct 33.1 L RPR Non-reactive OB - PN A/P Plan day: 1 Plan: routine care and discharge home Time Spent With Patient Time: Total time spent is greater than 50% in coordination of care (as documented) at patient's floor/unit and/or counseling patient: Review of Systems Review of Systems: All systems reviewed & are unremarkable except as noted in HPI and below Exam Const: General: cooperative and healthy appearing Chest: Chest palpation & inspection: normal inspection of the chest Resp: Effort & Inspection: normal respiratory effort Cardio: Rate: regular rate Rhythm: regular rhythm GI: Other: soft Skin: General skin exam: normal color Extrem: Right lower extremity: edema Left lower extremity: edema
--- NOTE | 2023-06-15 08:10 | PM.OBDSVD ---
DS: Admitting Diagnosis Discharge Date 06/15/23 Admitting Diagnosis IOL DS: Discharge Diagnosis Discharge Diagnosis (1) Vaginal delivery: Code(s): O80 - Encounter for full-term uncomplicated delivery Status: Acute OB - DS: Summary OB Procedures : None OB Procedures Intrapartum: Spontaneous Vag Delivery OB Procedures: : None Time Spent with Patient Time attestation: Total time spent providing and/or coordinating discharge services: DS: Data Data Completed and Pending Labs on day of discharge: Labs from last 24 hours 06/15/23 06/14/23 04:44 05:51 Hgb 10.1 L Hct 33.1 L RPR Non-reactive Discharge Plan Discharge Attending physician on discharge: Elvis Awan Discharging Clinician: Kandace Marin Patient Disposition: Home, Self-Care Activity: pelvic rest Diet: regular Patient Instructions: Antibiotic Form Stand Alone Forms: General Discharge Information Follow-up/Referrals: Kandace Marin, CNM [Certified Nurse Visitor Services Coordinator] - 4 Weeks Discharge Medications: New ibuprofen 600 mg Tablet 600 mg PO Q6H PRN (Reason: Cramping) Qty: 30 0RF Continued sertraline 50 mg tablet 50 mg PO DAILY Date of admission: 06/14/23 05:15 Primary Care Provider: Hardy,Tre Campa Admitting Provider: Margo Cohen Attending physician on admission: Margo Cohen Condition: Stable
[2023-06-15 08:25] VITALS: BP 97/51; PULSE 87; RESP 18; TEMP 36.2; O2SAT 100
[2023-06-15] MEDS: MULTIVIT/MIN/PREN/FOL AC/IRON TABLET 1 TAB PO (08:41)
[2023-06-15] MEDS: DOCUSATE SODIUM 100 MG CAPSULE PO ×2 (08:42→15:28)
[2023-06-15] MEDS: SERTRALINE HCL 50 MG TABLET PO ×2 (08:42→08:55)
--- NOTE | 2023-06-15 09:02 | WPDANLDPN2 ---
Anes-Prog Note L&D Date/Time: 06/15/23 09:02 Comfortable throughout: labor and delivery Neuraxial method: epidural Epidural/Spinal procedure site: clean & non-tender Neuro status: Neuro function grossly intact. Cardiovascular status: normal Respiratory status: normal Airway patency: baseline Mental status: baseline Post-Op hydration status: normal Vital Signs: Last Vital Signs Temp 35.6 C L 06/14/23 23:50 Pulse 96 06/14/23 23:50 Resp 18 06/14/23 23:50 BP 112/54 L 06/14/23 23:50 Pulse Ox 100 06/14/23 19:20 O2 Del Method Room Air 06/14/23 06:22 Pain score (VAS): 2 I/O: Intake & Output 06/14/23 06/15/23 06/15/23 23:59 07:59 15:59 Output Total 145 Balance -145 Patient feedback: Patient satisfied with anesthetic care.
[2023-06-15 12:05] VITALS: BP 101/60; PULSE 94; RESP 18; TEMP 37.2; O2SAT 98
--- NOTE | 2023-06-15 13:08 | PC.NURSE ---
1250: To Xray per wheelchair. Waited for pt to complete xray then returned pt to room without difficulty.
--- NOTE | 2023-06-15 13:41 | PC.NURSE ---
[id number] Consulted with patient to assess needs related to . Mother led conversation with her experience, feeding baby so far and has pumping questions that are asked and answered. Infant is swaddled in the bassinet. Mother works well with her with encouragement and waking to breastfeed since it has been over 3 hours. Mother states has been circumcised and is sleepy. Reviewed with mother the early feeding cues that the is demonstrating. Encouraged understanding the benefits of skin to skin, responding to feeding cues, frequencies of feeding 8-12 times in 24 hours (approximately 2-3 hours), signs of adequate intake encouraging swallowing at the breast. Mother is knowledgeable as she has a successful history with her first child of 18 months. demonstrated instincts and crawled to the breast and latched optimally to the left breast in laid-back position. was able to maintain latch without discomfort to mother and demonstrated swallowing that mother voiced witnessing. Nipple care reviewed with optimal latch, good positioning and using clean hands when feeding her and touching her breast. After 5 minutes infant detached and fell asleep. Mother worked on waking her and once feeding cues are visualize offers the breast again. Mother voiced understanding of the education shared, to call for assistance if the infant does not latch or if there is discomfort with . Reported to the primary RN.
== END 2023-06-15 16:40 | disposition home or self-care (01) | DRG 560 ==
LOC: ANHLDR 05:21 → ANHOB2 17:43
PROVIDERS: Admitting Provider Obstetrics & Gynecology; PCP Internal Medicine Infectious Disease; Referring Provider Advanced Practice Midwife; Visit Provider Obstetrics & Gynecology
DX: O69.81X0 Labor and delivery complicated by cord around neck, without compression, not applicable or unspecified (principal); Z37.0 Single live birth; O99.344 Other mental disorders complicating childbirth; F41.8 Other specified anxiety disorders; O70.0 First degree perineal laceration during delivery; Z3A.39 39 weeks gestation of pregnancy
CPT/HCPCS: 36415; 72170; 85014; 85018; 85025; 86592; 86850; 86900; 86901; A9270; J1200; J2405; J2590; J2795; J7120

== ENCOUNTER 2023-06-30 02:25 | Day surgery (SDC) | payer OTHER, SELFPAY ==
[2023-06-22 11:33] VITALS: BMI 31.3
--- NOTE | 2023-06-22 11:38 | PC.NURSE ---
Addendum entered by Yolanda Perez RN 06/23/23 15:42: PT TO ARRIVE AT 0900 ON 06/30/23 FOR PROCEDURE AT 1100. Original Note: Report to the Outpatient Waiting Room, entrance under the green pavilion located off [facility], at time 1100 on date 06/24/23. Planned Procedure Time: 1300. Time changes happen often and if your time is changed the preop area will call you the afternoon before. - You and your visitor will be asked to self-screen and do not enter if you have any COVID symptoms. - A mask is optional within the hospital at this time. Patients may have clear liquids (water, carbonated beverages, clear teas, apple juice) until 3 hours prior to surgery with a maximum of 20 ounces. - No food from midnight until time of surgery Take the following medications with a SIP of water the morning of surgery: SERTRALINE DO NOT STOP ANY OF YOUR OTHER PRESCRIPTION MEDICATIONS PRIOR TO SURGERY ?EXCEPT THE FOLLOWING Medications to discontinue per physician: N/A Date to take last dose: N/A Please no make-up, nail haitian, hairspray, perfume, deodorant, or body powder the day of surgery. No jewelry (including any body piercings) or valuables the day of surgery, leave them at home. Please take a shower or bath the night before, or the morning of, surgery with an antibacterial soap. Wear comfortable, loose fitting clothing. - Jewelry must be removed prior to entering the operating room. Rings and piercings that are not removed may be cut off. - The hospital will not accept responsibility for valuables. - Please leave all valuables, including medications, at home the day of surgery. If you are going home after surgery, a licensed regional company hazmat tanker driver must drive you home. - NO public transportation without another adult if you receive anesthesia. - We recommend that an adult stay with you for 24 hours following discharge. - We also recommend that you do not drive, make important decision, drink alcoholic beverages, or take any drugs that were not prescribed by your health care provider for at least 24 hours after your discharge time. Follow any additional instructions given to you from your surgeon. If you or anyone in your household have experienced Covid symptoms in the past week, please notify your surgeon or the nurse liaison at the phone number below for possible testing. Telephone instructions given to PT - VERA [place] and asked if any additional questions and then verbalized understanding. Patient advised to call surgeon office or pre surgery nurse liaison [phone] if any additional questions.
--- NOTE | 2023-06-23 15:43 | PC.NURSE ---
Pt states no changes in medications or health history since initial interview. New pre-op instructions reviewed with pt. Pt denies further questions at this time.
[2023-06-30 09:10] VITALS: BP 112/80; PULSE 102; RESP 16; TEMP 36.6; O2SAT 98
[2023-06-30 09:15] VITALS: BMI 31.4
[2023-06-30] MEDS: LACTATED RINGERS 1,000 ML 30 ML IV CONT (10:05)
--- NOTE | 2023-06-30 10:29 | WPDHPUPDATE1 ---
History and Physical Update Update Date/Time: 06/30/23 10:29 History and Physical has been reviewed, including an updated exam of the patient. There are NO changes in the patient's condition. Risks, benefits, and alternatives have been discussed and questions answered. Patient agrees to proceed with procedure.
--- NOTE | 2023-06-30 10:42 | P.PNAN_ITS ---
Anes - Initial Pre Proc Eval Procedure: Operation Date: 06/30/23 11:00 Proposed Procedures p Episiotomy Repair - Margo Cohen MD Date/Time: 06/30/23 10:42 Surgeon: Margo Cohen MD Pre Op Diagnosis: Disruption of Episiotomy Wound Puerperium Patient Data Age: 22 Gender: F Height: 1.75 m Weight: 96.2 kg Allergies Allergy/AdvReac Type Severity Reaction Status Date / Time No Known Allergies Allergy Verified 06/23/23 15:42 Home Medications Medication Instructions Recorded Confirmed Type sertraline 50 mg tablet 50 mg PO DAILY 05/25/23 06/23/23 History ibuprofen 600 mg tablet 600 mg PO Q6H PRN Cramping #30 tabs 06/15/23 06/23/23 Rx Patient hx anesthesia problems: none Family hx anesthesia problems: none Results Review: All pre-operative results and documents have been reviewed as part of the pre- operative evaluation. PMFSH Past Medical History Medical History IUP (intrauterine ), incidental Sepsis due to urinary tract infection Surgical History Surgical History History of dental surgery gums History of tonsillectomy Family History Family History Other Unknown family medical history Social History Social History Smoking status: Never smoker Alcohol intake: never Substance use: never Substance use type: does not use Lack of Transportation: No Lack of Food: Never True Current Housing: I Have Housing Concerned About Future Housing: No Difficulty Paying Gas/Electric Bills: No Difficulty Paying for Meds: No Currently Unemployed: No Education: High School Diploma/GED Difficulty w/ Childcare or Family Care: No Living arrangements: with family Additional living arrangements comments: PARENTS AND CHILDREN Gender identity (if verbalized by the patient): Female Spiritual care concerns: No Anes - Eval Final PreProcedure Day of Procedure 06/30/23 10:42 Patient weight: overweight Heart: regular rate and rhythm Lungs: clear to auscultation Airway: Mallampati scale class II and special considerations poor opening Neurological: alert and oriented Last oral intake: >/= 8 hours ASA classification: II Emergent: no Anesthetic plan: proceed Anesthesia type and monitoring: general GIVS and standard monitoring Results Review: All pre-operative results and documents have been reviewed as part of the pre- operative evaluation. Informed Consent: The patient's anesthetic plan and its attendant risks and benefits were discussed with the patient/family/POA. Questions were solicited and answers provided to the satisfaction of the patient/family/POA.
--- NOTE | 2023-06-30 10:44 | PM.IMHP ---
H&P: HPI History of Present Illness Date/Time: 06/30/23 10:44 Chief Complaint: Episiotomy complication Narrative: This patient is a 22-year-old multiparous female with complication of episiotomy and vulvar cyst. We have agreed to perform revision of episiotomy and resection of vulvar lesion. She understands the procedure. She understands the risk. She understands that injuries may occur that resulted in hospitalization, more surgery, and severe illness. She understands risk of hemorrhage infection. She denies any nausea, vomiting, fever, chills. She denies any chest pain or shortness of breath. Review of Systems Review of Systems: All systems reviewed & are unremarkable except as noted in HPI and below Constitutional: Constitutional: Denies chills, Denies fatigue, Denies fever(s) and Denies weakness Eyes: Eyes: Denies blurry vision, Denies change in vision, Denies loss of peripheral vision, Denies loss of vision, Denies other visual disturbances and Denies eye pain ENT: Denies vertigo, Denies dizziness, Denies hearing loss, Denies mouth pain, Denies nasal obstruction, Denies neck mass and Denies neck pain Cardiovascular: Cardiovascular: Denies chest pain, Denies diaphoresis, Denies syncope, Denies leg edema and Denies dyspnea Respiratory: Respiratory: Denies chest congestion, Denies cough, Denies hemoptysis, Denies dyspnea and Denies wheezing Gastrointestinal: Gastrointestinal: Denies abdominal pain, Denies constipation, Denies diarrhea, Denies nausea and Denies vomiting Genitourinary: Genitourinary: Denies hematuria, Denies change in libido, Denies nocturia, Denies genital lesions, Denies flank pain and Denies urinary urgency Musculoskeletal: Musculoskeletal: Denies abnormal gait, Denies back pain, Denies myalgias, Denies arthralgias, Denies joint swelling, Denies muscle weakness and Denies neck pain Integumentary/Breasts: Skin/Breast: Denies swelling, Denies breast pain, Denies breast mass, Denies dry skin, Denies nipple discharge, Denies unusual bruising and Denies jaundice Neurologic: Denies Neuro-related abnormal movements, Denies Abnormal speech present, Denies abnormal gait, Denies behavioral changes, Denies confusion, Denies vertigo, Denies dizziness, Denies syncope, Denies loss of vision, Denies memory loss, Denies convulsions and Denies weakness Psychiatric: Psychiatric: Denies abnormal sleep pattern, Denies behavioral changes, Denies change in libido, Denies confusion, Denies depression, Denies anhedonia and Denies memory loss Endocrine: Endocrine: Reports no additional endocrine complaints, Denies change in libido and Denies fatigue Hematologic/Lymphatic: Hematologic/Lymphatic: Reports no additional hematologic/lymphatic complaints Allergic/Immunologic: Allergic/Immunologic: Reports no additional allergic/immunologic complaints and Denies wheezing PMFSH Past Medical History Medical History IUP (intrauterine ), incidental Sepsis due to urinary tract infection Surgical History Surgical History History of dental surgery gums History of tonsillectomy Family History Family History Other Unknown family medical history Social History Social History Smoking status: Never smoker Alcohol intake: never Substance use: never Substance use type: does not use Lack of Transportation: No Lack of Food: Never True Current Housing: I Have Housing Concerned About Future Housing: No Difficulty Paying Gas/Electric Bills: No Difficulty Paying for Meds: No Currently Unemployed: No Education: High School Diploma/GED Difficulty w/ Childcare or Family Care: No Living arrangements: with family Additional living arrangements comments: PARENTS AND CHILDREN Gender dolly
[2023-06-30] MEDS: ceFAZolin 2 GM/D5W 50 ML 2 GM/50 ML BAG IVPB (10:59)
[2023-06-30] MEDS: LIDO 1%/EPINEPHRINE 1:100,000 20 ML VIAL 10 ML INFILTRATE (11:17)
[2023-06-30 11:35] VITALS: BP 102/68; PULSE 95; RESP 18; O2SAT 97
[2023-06-30] MEDS: oxyCODONE HCL (*CRX) 5 MG TAB IR PO (11:56)
[2023-06-30 12:00] VITALS: BP 93/66; PULSE 72; RESP 18; O2SAT 100
[2023-06-30 12:25] VITALS: BP 96/63; PULSE 67; RESP 16
--- NOTE | 2023-06-30 12:44 | W.PM.PROC2 ---
Procedure Note - Detailed Date of Procedure 06/30/23 Pre-op Diagnosis Disruption of Episiotomy Wound Puerperium Post-op Diagnosis Same Procedure Performed Revision of episiotomy Surgeon Margo Cohen MD Anesthesia MAC Indications Irregular healing of the episiotomy Findings Poor healing at the introitus of the vulva. The PCI had irregular contour that bulged away from the surface of the vulva/redundant skin was present at the 7 o'clock position of the introitus Description of Procedure The patient was taken operating room she was prepped and draped in the dorsal lithotomy position. Mac anesthesia was applied an adequate as the revision was initiated. The redundant skin and was resected with scissors in a circumferential fashion from about the 5 o'clock position to the 8 o'clock position in a circular a incision around the introitus in that area. It was reapproximated with 3-0 Vicryl. These were interrupted sutures of 3. An area of redundant skin on the perineum that was very small, less than 5 mm was resected and closed with a stitch. The patient tolerated the procedure well. She was taken to cover stable condition. Sponge lap and needle counts was correct x2. Estimated Blood Loss 15 Pathology Yes Complications No immediate complications Condition Stable
== END 2023-06-30 12:42 | disposition home or self-care (01) ==
PROVIDERS: PCP Internal Medicine Infectious Disease; Visit Provider Obstetrics & Gynecology
PROC: (CPT 58999; principal; 2023-06-30 11:00)
DX: O90.1 Disruption of perineal obstetric wound (principal); Y83.8 Other surgical procedures as the cause of abnormal reaction of the patient, or of later complication, without mention of misadventure at the time of the procedure
CPT/HCPCS: 58999; A9270; J0690; J2250; J2704; J3010; J7120

== ENCOUNTER 2023-11-12 17:37 | Emergency (ER) | payer OTHER, SELFPAY ==
[2023-11-12 17:42] VITALS: BP 111/69; PULSE 105; RESP 20; TEMP 38; O2SAT 100
--- NOTE | 2023-11-12 18:19 | ED.URI ---
HPI - URI/Sore Throat General Chief Complaint: Upper Respiratory Infection Stated Complaint: Dizziness/Ear Pain/Sore Throat/Chest Congestion Time Seen by Provider: 11/12/23 18:19 Source: patient Mode of arrival: ambulatory Limitations: no limitations History of Present Illness HPI Narrative: 23-year-old female presents with complaint of sore throat, cough, fatigue, chest congestion, nasal congestion for 4 days. Patient had exposure to influenza a 3 days prior to symptoms starting. Patient taking Tylenol and ibuprofen for pain and fever. Has nausea vomiting diarrhea. Patient currently . Was unsure what medication she could take to treat symptoms. All systems reviewed and negative except as noted above. Related Data Home Medications Medication Instructions Recorded Confirmed sertraline 50 mg tablet 50 mg PO DAILY 05/25/23 11/12/23 Allergies Allergy/AdvReac Type Severity Reaction Status Date / Time No Known Allergies Allergy Verified 11/12/23 17:58 Review of Systems Review of Systems: CONSTITUTIONAL: Reports fever, chills, or sweats. Reports fatigue. EYES: Denies visual changes, redness, or discharge. ENT: Reports rhinorrhea, congestion, sore throat. Denies otalgia. CARDIOVASCULAR: Denies chest pain, palpitations, or edema. RESPIRATORY: Reports cough. Denies dyspnea. GASTROINTESTINAL: Denies abdominal pain, nausea, vomiting, or diarrhea. GENITOURINARY: Denies dysuria or hematuria. SKIN: Denies rash or itching. MUSCULOSKELETAL: Denies back pain, joint pain, or myalgia. NEUROLOGIC: Denies headache, numbness, or weakness. PSYCHIATRIC: Denies anxiety or depression. All other systems reviewed are negative, except as documented in HPI. [facility] Past Medical History Medical History IUP (intrauterine ), incidental Sepsis due to urinary tract infection Surgical History Surgical History History of dental surgery gums History of tonsillectomy Family History Family History Other Unknown family medical history Social History Social History Smoking status: Never smoker Alcohol intake: never Substance use: never Substance use type: does not use Lack of Transportation: No Lack of Food: Never True Current Housing: I Have Housing Concerned About Future Housing: No Difficulty Paying Gas/Electric Bills: No Difficulty Paying for Meds: No Currently Unemployed: No Education: High School Diploma/GED Difficulty w/ Childcare or Family Care: No Living arrangements: with family Additional living arrangements comments: PARENTS AND CHILDREN Gender identity (if verbalized by the patient): Female Spiritual care concerns: No Comments At time of signature, agree with nursing past medical, surgical, social and family history. There is no relevant family history pertinent to the presenting complaint. Exam Narrative: GENERAL: This is a well-nourished, well-developed patient, in no apparent distress. HEAD: normocephalic, atraumatic. EYES: PERRL. Sclera clear/white. Vision is grossly intact. EARS: External ears normal, auditory canals clear and without drainage, TMs normal without perforation. Hearing grossly intact. NOSE: External nose normal with clear nasal drainage, mild congestion with erythema to bilateral nares. THROAT: Mucous membranes moist, erythema to posterior pharynx NECK: Neck supple, non-tender without lymphadenopathy, masses or thyromegaly. CARDIOVASCULAR: Regular rate and rhythm without murmurs, gallops, or rubs. RESPIRATORY: Clear to auscultation. Breath sounds equal bilaterally. No wheezes, rales, or rhonchi. SKIN: warm, Dry, intact with no suspicious lesions or rash, good texture and turgor. NEURO: awake, alert, and orie
== END 2023-11-12 18:34 | disposition home or self-care (01) ==
PROVIDERS: Emergency Provider Nurse Practitioner Family; PCP Internal Medicine Infectious Disease
DX: J06.9 Acute upper respiratory infection, unspecified (principal); Z20.822 Contact with and (suspected) exposure to COVID-19
CPT/HCPCS: 87081; 87426; 87804; 87880; 99213; G0463

== ENCOUNTER 2024-01-08 09:56 | Emergency (ER) | payer OTHER, SELFPAY ==
[2024-01-08 10:04] VITALS: BP 124/62; PULSE 93; RESP 18; TEMP 36.7; O2SAT 99
--- NOTE | 2024-01-08 10:29 | ED.EYEPROB ---
HPI - Eye Problem General Chief complaint: Eye Problems Stated complaint: poss pink eye Time Seen by Provider: 01/08/24 10:29 Source: patient Mode of arrival: ambulatory Limitations: no limitations History of Present Illness HPI Narrative: 23-year-old female presents with complaint of redness, itching and drainage from both eyes for 3-4 days. States that her children have both had bacterial conjunctivitis. Patient wears contacts. All systems reviewed and negative except as noted above. Related Data Home Medications Medication Instructions Recorded Confirmed doxycycline monohydrate 100 mg See Rx Instructions .Route .COMPLEX 01/08/24 01/08/24 capsule sertraline 100 mg tablet 100 mg PO DAILY 01/08/24 01/08/24 Allergies Allergy/AdvReac Type Severity Reaction Status Date / Time No Known Allergies Allergy Verified 01/08/24 10:11 Review of Systems Review of Systems: CONSTITUTIONAL: Denies fever, chills, or sweats. EYES: Denies visual changes. Reports redness, itching discharge. ENT: Denies rhinorrhea, congestion, sore throat, or otalgia. CARDIOVASCULAR: Denies chest pain, palpitations, or edema. RESPIRATORY: Denies cough or dyspnea. GASTROINTESTINAL: Denies abdominal pain, nausea, vomiting, or diarrhea. GENITOURINARY: Denies dysuria or hematuria. SKIN: Denies rash or itching. MUSCULOSKELETAL: Denies back pain, joint pain, or myalgia. NEUROLOGIC: Denies headache, numbness, or weakness. PSYCHIATRIC: Denies anxiety or depression. All other systems reviewed are negative, except as documented in HPI. [facility] Past Medical History Medical History IUP (intrauterine ), incidental Sepsis due to urinary tract infection Surgical History Surgical History History of dental surgery gums History of tonsillectomy Family History Family History Other Unknown family medical history Social History Social History Smoking status: Never smoker Alcohol intake: never Substance use: never Substance use type: does not use Lack of Transportation: No Lack of Food: Never True Current Housing: I Have Housing Concerned About Future Housing: No Difficulty Paying Gas/Electric Bills: No Difficulty Paying for Meds: No Currently Unemployed: No Education: High School Diploma/GED Difficulty w/ Childcare or Family Care: No Living arrangements: with family Additional living arrangements comments: PARENTS AND CHILDREN Gender identity (if verbalized by the patient): Female Spiritual care concerns: No Comments At time of signature, agree with nursing past medical, surgical, social and family history. There is no relevant family history pertinent to the presenting complaint. Exam Narrative: GENERAL: This is a well-nourished, well-developed patient, in no apparent distress. HEAD: normocephalic, atraumatic. EYES: PERRL. Sclera and conjunctiva erythematous bilaterally with mucousy, purulent yellow drainage. Vision is grossly intact. EARS: External ears normal NOSE: External nose normal NECK: Neck supple, non-tender without lymphadenopathy, masses or thyromegaly. CARDIOVASCULAR: Regular rate and rhythm without murmurs, gallops, or rubs. RESPIRATORY: Clear to auscultation. Breath sounds equal bilaterally. No wheezes, rales, or rhonchi. SKIN: warm, Dry, intact with no suspicious lesions or rash, good texture and turgor. NEURO: awake, alert, and oriented to person, place and time. There were no obvious focal neurologic abnormalities. EXTREMITIES: No joint tenderness, effusion, or edema noted. Course Course Level of Care: Express Care Visit Vital Signs Vital signs: Vital Signs Temperature 36.7 C 01/08/24 10:04 Pulse Rate 93 01/08/24 10:04 Resp
== END 2024-01-08 10:35 | disposition home or self-care (01) ==
PROVIDERS: Emergency Provider Nurse Practitioner Family; PCP Internal Medicine Infectious Disease
DX: H10.33 Unspecified acute conjunctivitis, bilateral (principal)
CPT/HCPCS: 99213; G0463

== ENCOUNTER 2024-04-23 13:44 | Observation (INO) | payer OTHER, SELFPAY ==
--- NOTE | 2024-04-23 14:00 | PC.NURSE ---
FHT's Doppler - 140, patient reassured.
[2024-04-23 14:15] VITALS: BMI 32.5
[2024-04-23 14:16] LABS: Appearance Urine Clear (Clear); Color Urine Yellow (Yellow); Protein Urine Negative (Negative)
[2024-04-23 14:17] LABS: Add Urine Microscopic? YES; Bilirubin Urine 1+ (Negative); Blood Urine Trace-intact (Negative); Glucose Urine UA Negative (Negative); Ketones Urine 1+ mg/dL (Negative); Leukocyte Esterase Ur Negative LEU/UL (Negative); Nitrate Urine Negative (Negative)
[2024-04-23 14:19] LABS: Bacteria Urine None Seen /hpf; Non Pathogenic Casts 0-2; RBC Urine 0-2 /hpf (0-2); Squamous Epithelial Cell Urine Occasional /hpf (Few); WBC Urine 0-5 /hpf (0-3)
--- NOTE | 2024-04-23 14:56 | PC.NURSE ---
Dr Cohen notified of adm c/o of back pain and decreased movement at 20 weeks. Informed of FHT's 140 per doppler and UA results. OK to dc home. Follow up in office as needed.
--- NOTE | 2024-05-22 10:14 | PM.OBTRLD ---
OB - Triage/Final Diagnosis Visit Information Comments/Additional reasons for admission: I have assessed the risk for this patient, Kush Jaffe, and determined that she would benefit from observation care. Evaluation Laboratory results: Laboratory Tests 04/23/24 14:05 Urine Color Yellow Urine Appearance Clear Urine pH 7.0 Ur Specific [place] 1.020 Urine Protein Negative Urine Glucose (UA) Negative Urine Ketones 1+ H Ur Blood (Man) Trace-intact H Urine Nitrate Negative Urine Bilirubin 1+ H Urine Urobilinogen 1.0 Ur Leukocyte Esterase Negative Urine RBC 0-2 Urine WBC 0-5 Ur Squamous Epith Cells Occasional Urine Bacteria None seen Urine Casts 0-2 Final Diagnosis (1) Decreased movement: Code(s): O36.8190 - Decreased movements, unspecified trimester, not applicable or unspecified Status: Acute
== END 2024-04-23 14:55 ==
PROVIDERS: Admitting Provider Obstetrics & Gynecology; PCP Internal Medicine Infectious Disease; Referring Provider Advanced Practice Midwife; Visit Provider Obstetrics & Gynecology
DX: O36.8120 Decreased fetal movements, second trimester, not applicable or unspecified (principal); Z3A.20 20 weeks gestation of pregnancy
CPT/HCPCS: 81001; 87086; G0378; G0379

== ENCOUNTER 2024-05-18 18:46 | Observation (INO) | payer OTHER, SELFPAY ==
[2024-05-18] VITALS (21 sets, daily range): BP systolic 114–127; BP diastolic 66–74; PULSE 94–119; TEMP 36.2; O2SAT 97–100; BMI 35.4
--- NOTE | ~2024-05-18 | US_ITS ---
EXAMINATION: US renal BI DATE: 05/19/2024 12:20 INDICATION: Right flank pain TECHNIQUE: Multiple ultrasound grayscale images of the kidneys were obtained. COMPARISON: None. FINDINGS: The right kidney measures 12.5 x 5 4 x 6 point cm. The left kidney measures 12.4 x 5.3 x 5.1 cm. The kidneys demonstrate normal echogenicity. There is no hydronephrosis in either kidney. No stones iden tified. The bladder is normal with bilateral ureteral jets visualized on color Doppler. Nonspecific m ild splenomegaly measuring 14.1 cm in craniocaudal length. IMPRESSION: 1. Normal kidneys without hydronephrosis. 2. Nonspecific mild splenomegaly measuring 14.1 cm Reviewed, dictated and finalized at location A.
--- NOTE | 2024-05-18 19:04 | PC.NURSE ---
Doppled FHT. FHT ranged from 130-150.
[2024-05-18 19:39] LABS: Add Urine Microscopic? NO; Appearance Urine Clear (Clear); Bilirubin Urine Negative (Negative); Blood Urine Negative (Negative); Color Urine Yellow (Yellow); Glucose Urine UA Negative (Negative); Ketones Urine 1+ mg/dL (Negative); Leukocyte Esterase Ur Negative LEU/UL (Negative); Nitrate Urine Negative (Negative); Protein Urine Negative (Negative); Specific Grav Ur 1.014 (1.001-1.035); Urobilinogen Urine 0.2 mg/dL (<2.0); pH Urine 5.5 (5.0-9.0)
--- NOTE | 2024-05-18 20:17 | PC.NURSE ---
Called Dr. Cohen. aware of patient arriving to labor and delivery unit with complaints of right lower back pain and heart palpitations. New orders received to draw a CBC and CMP and get an EKG and a consult for cardiology. New orders received to keep patient overnight to be monitored.
[2024-05-18 21:06] LABS: Basophils Percent Auto 0.1 % (0.2-1.2); Eosinophils Absolute Auto 0.1 K/mm3 (0-0.3); Hemoglobin 12.6 g/dL (12.0-15.0); Immature Granulocyte Absolute 0.02 K/mm3 (0.00-0.031); Immature Granulocyte Percent A 0.2 % (0-0.5); Lymphocytes Absolute Auto 1.88 K/mm3 (0.9-3.2); Mean Corpuscular Hemoglobin 31.3 pg (26-34); Mean Corpuscular Volume 89.3 fl (80-100); Mean Platelet Volume 9.9 fl (7.4-10.4); Monocytes Absolute Auto 0.4 K/mm3 (0.1-0.6); Monocytes Percent Auto 5.4 % (2.6-8.5); Neutrophils Absolute Auto 5.8 K/mm3 (1.3-6.7); Neutrophils Percent Auto 70.3 % (45.5-73.1); Platelet Count Result 183 k/mm3 (150-375); Red Blood Count 4.03 M/mm3 (4.2-5.4); Red Cell Distribution Width 13.3 % (11.5-14.5); White Blood Count 8.2 K/mm3 (4.5-10.0)
[2024-05-18 21:16] LABS: Alanine Aminotransferase 11 U/L (6-35); Albumin Level 3.4 g/dL (3.5-5.1); Alkaline Phosphatase 80 U/L (38-126); Anion Gap 7 mmol/L (4-12); Aspartate Amino Transferase 18 U/L (14-36); Bilirubin,Total 0.4 mg/dL (0.2-1.3); Blood Urea Nitrogen 6 mg/dL (7-17); Carbon Dioxide 22 mmol/L (22-30); Chloride 103 mmol/L (98-107); Estimated CRCL calculation 235 ml/min; Estimated Glomerular Filt Rate > 60; Glucose 117 mg/dL (65-110); Potassium 3.3 mmol/L (3.4-5.0); Sodium 132 mmol/L (137-145)
--- NOTE | 2024-05-18 21:57 | PC.NURSE ---
Called Dr. Cohen, update on labs, EKG, and pt request to go home and not stay for cardiology consult. Orders received to encourage pt to get consult, pt discharged with instructions to call the office to make an appointment and get a referral.
--- NOTE | 2024-05-18 22:05 | PC.NURSE ---
RN at bedside, encouraged pt to stay tonight to get cardiology consult in the morning. Pt verbalizes understanding and calling family to ensure childcare.
--- NOTE | 2024-05-18 22:40 | PC.NURSE ---
RN at bedside, pt decides to stay tonight to see cardiology tomorrow.
[2024-05-19 03:01] VITALS: PULSE 94; O2SAT 98
[2024-05-19 03:02] VITALS: BP 101/55; PULSE 94; RESP 14; TEMP 36.7; O2SAT 98
--- NOTE | 2024-05-19 06:20 | PC.NURSE ---
Report given to Emanuel Tovar RN.
[2024-05-19 07:11] VITALS: BP 99/66; PULSE 95; PULSE 99; O2SAT 98
--- NOTE | 2024-05-19 08:15 | PC.NURSE ---
Viji Segura SHOE CASER for the cardiology office called. Someone from the office will be in to evaluate pt within the next couple of hours.
--- NOTE | 2024-05-19 08:41 | PM.IMHP ---
H&P: [facility] History of Present Illness Date/Time: 05/19/24 08:41 Chief Complaint: palpitations Narrative: 23year-old multiparous female at 22 weeks gestation who presents with fluttering in her chest. Palpitations as she said. She had this in her previous . She is unclear about the details of the diagnosis and treatment. SHe reports some lightheadedness with the palpitations. She denies any vaginal bleeding, contractions, loss of fluid. She does report some flank pain on her right side. She has a history of hydronephrosis in a previous . Will obtain imaging of her right flank. We will observe her time consider discharge later today if all is well. Review of Systems Review of Systems: All systems reviewed & are unremarkable except as noted in HPI and below Constitutional: Constitutional: Denies chills, Denies fatigue, Denies fever(s) and Denies weakness Eyes: Eyes: Denies blurry vision, Denies change in vision, Denies loss of peripheral vision, Denies loss of vision, Denies other visual disturbances and Denies eye pain ENT: Denies vertigo, Denies dizziness, Denies hearing loss, Denies mouth pain, Denies nasal obstruction, Denies neck mass and Denies neck pain Cardiovascular: Cardiovascular: Denies chest pain, Denies diaphoresis, Denies syncope, Denies leg edema and Denies dyspnea Respiratory: Respiratory: Denies chest congestion, Denies cough, Denies hemoptysis, Denies dyspnea and Denies wheezing Gastrointestinal: Gastrointestinal: Denies abdominal pain, Denies constipation, Denies diarrhea, Denies nausea and Denies vomiting Genitourinary: Genitourinary: Denies hematuria, Denies change in libido, Denies nocturia, Denies genital lesions, Denies flank pain and Denies urinary urgency Musculoskeletal: Musculoskeletal: Denies abnormal gait, Denies back pain, Denies myalgias, Denies arthralgias, Denies joint swelling, Denies muscle weakness and Denies neck pain Integumentary/Breasts: Skin/Breast: Denies swelling, Denies breast pain, Denies breast mass, Denies dry skin, Denies nipple discharge, Denies unusual bruising and Denies jaundice Neurologic: Denies Neuro-related abnormal movements, Denies Abnormal speech present, Denies abnormal gait, Denies behavioral changes, Denies confusion, Denies vertigo, Denies dizziness, Denies syncope, Denies loss of vision, Denies memory loss, Denies convulsions and Denies weakness Psychiatric: Psychiatric: Denies abnormal sleep pattern, Denies behavioral changes, Denies change in libido, Denies confusion, Denies depression, Denies anhedonia and Denies memory loss Endocrine: Endocrine: Reports no additional endocrine complaints, Denies change in libido and Denies fatigue Hematologic/Lymphatic: Hematologic/Lymphatic: Reports no additional hematologic/lymphatic complaints Allergic/Immunologic: Allergic/Immunologic: Reports no additional allergic/immunologic complaints and Denies wheezing PMFSH Past Medical History Medical History IUP (intrauterine ), incidental Sepsis due to urinary tract infection Surgical History Surgical History History of dental surgery gums History of tonsillectomy Family History Family History Other Unknown family medical history Social History Social History Smoking status: Never smoker Alcohol intake: never Substance use: never Substance use type: does not use Lack of Transportation: No Lack of Food: Never True Current Housing: I Have Housing Concerned About Future Housing: No Difficulty Paying Gas/Electric Bills: No Difficulty Paying for Meds: No Currently Unemployed: No Education: High School Diploma/GED Difficulty w/ Childcare or Family Care: No Living arrangements: with family
--- NOTE | 2024-05-19 11:03 | ECG_ITS ---
Test Date: 2024-05-19 11:28:15 Measurements Intervals [place] Rate: 102 P: 54 TX: 152 QRS: 20 QRSD: 74 T: 25 QT: 318 QTc: 416 Interpretive Statements SINUS TACHYCARDIA BORDERLINE ST-T WAVE ABNORMALITY- DIFFUSE LEADS BASELINE ARTIFACT- I, II, III, AVR, AVL, AVF BORDERLINE ECG No previous ECG available for comparison Electronically Signed On 05-19-2024 11:54:17 CDT by Fred Long D.O.
--- NOTE | 2024-05-19 11:04 | PM.CNCAR ---
Assessment and Plan Assessment and plan (1) Palpitations: Code(s): R00.2 - Palpitations Status: Acute Assessment and Plan: Recommend to keep electrolytes optimized. Will have her wear a 5 day monitor and follow up in our office. Okay to discharge home from my standpoint. She can obtain the monitor from our office after hospital discharge. (2) 22 weeks gestation of : Code(s): Z3A.22 - 22 weeks gestation of Status: Acute Assessment and Plan: Management as per OB History of Present Illness History of Present Illness Consult date/time: 05/19/24 11:04 Requesting physician: Iain Cohen MD Consult reason: Other (Palpitations ) Reason For Visit: Lower Back Pain Narrative: We are consulted for palpitations. This is a 23 year old female who is currently at 22 weeks of gestation who presented with palpitations. Has been occurring since Wednesday. Palpitations can last all day. She did not have these symptoms with her previous 2 pregnancies. No family history of heart disease. Workup shows K of 3.3. EKG shows sinus tachycardia, otherwise normal EKG. Review of Systems Review of Systems: All systems reviewed & are unremarkable except as noted in HPI and below (HPI) PMFSH Past Medical History Medical History IUP (intrauterine ), incidental Sepsis due to urinary tract infection Surgical History Surgical History History of dental surgery gums History of tonsillectomy Family History Family History Other Unknown family medical history Social History Social History Smoking status: Never smoker Alcohol intake: never Substance use: never Substance use type: does not use Lack of Transportation: No Lack of Food: Never True Current Housing: I Have Housing Concerned About Future Housing: No Difficulty Paying Gas/Electric Bills: No Difficulty Paying for Meds: No Currently Unemployed: No Education: High School Diploma/GED Difficulty w/ Childcare or Family Care: No Living arrangements: with family Additional living arrangements comments: PARENTS AND CHILDREN Gender identity (if verbalized by the patient): Female Spiritual care concerns: No Meds Home Medications and Allergies Allergies Allergy/AdvReac Type Severity Reaction Status Date / Time No Known Allergies Allergy Verified 01/08/24 10:11 Vital Signs Vital Signs - 24 hr 05/18/24 19:03 05/18/24 19:08 05/18/24 19:13 Temperature Pulse Rate Respiratory Rate Blood Pressure Pulse Oximetry 99 99 99 Oxygen Delivery 05/18/24 19:18 05/18/24 19:23 05/18/24 19:28 Temperature Pulse Rate 108 H Respiratory Rate Blood Pressure 127/66 Pulse Oximetry 99 99 98 Oxygen Delivery 05/18/24 19:30 05/18/24 19:33 05/18/24 19:38 Temperature Pulse Rate 109 H Respiratory Rate Blood Pressure 124/67 Pulse Oximetry 98 98 Oxygen Delivery 05/18/24 19:43 05/18/24 19:48 05/18/24 19:53 Temperature Pulse Rate Respiratory Rate Blood Pressure Pulse Oximetry 98 99 99 Oxygen Delivery 05/18/24 19:58 05/18/24 20:01 05/18/24 20:03 Temperature Pulse Rate 103 H Respiratory Rate Blood Pressure 114/74 Pulse Oximetry 98 98 Oxygen Delivery 05/18/24 20:08 05/18/24 20:13 05/18/24 20:18 Temperature Pulse Rate Respiratory Rate Blood Pressure Pulse Oximetry 98 100 98 Oxygen Delivery 05/18/24 20:23 05/18/24 23:02 05/18/24 23:03 Temperature Pulse Rate 105 H Respiratory Rate Blood Pressure 114/70 Pulse Oximetry 100 97 Oxygen Delivery 05/18/24 19:26 05/18/24 23:03 05/19/24 03:01 Temperature 36.2 C L Pulse Rate 103 H Respirat
--- NOTE | 2024-05-19 12:02 | PC.NURSE ---
1150--Report to Dr. Cohen that pt. had been cleared for DC by sand blaster, and on her way for renal u/s. Pt requesting to go home after she returns from u/s. Discussed this with Dr. Cohen, orders to DC home after u/s completed.
--- NOTE | 2024-06-11 21:37 | P.PNOB_ITS ---
OB - Triage/Final Diagnosis Visit Information Comments/Additional reasons for admission: I have assessed the risk for this patient, Kush Jaffe, and determined that she would benefit from observation care. Evaluation Laboratory results: Laboratory Tests 05/18/24 05/18/24 19:18 20:51 WBC 8.2 RBC 4.03 L Hgb 12.6 Hct 36.0 L MCV 89.3 MCH 31.3 MCHC 35.0 RDW 13.3 Plt Count 183 MPV 9.9 Immature Gran % (Auto) 0.2 Neut % (Auto) 70.3 Lymph % (Auto) 23.0 [place] % (Auto) 5.4 Eos % (Auto) 1.0 Baso % (Auto) 0.1 L Lymph # (Auto) 1.88 [place] # (Auto) 0.4 Eos # (Auto) 0.1 Baso # (Auto) 0.0 Abs Immat Gran (auto) 0.02 Absolute Neuts (auto) 5.8 Absolute Nucleated RBC 0.000 Nucleated RBC % 0.0 Sodium 132 L Potassium 3.3 L Chloride 103 Carbon Dioxide 22 Anion Gap 7 BUN 6 L Creatinine 0.40 L Estim Creat Clear Calc 235 Estimated GFR > 60 Glucose 117 H Calcium 9.0 Total Bilirubin 0.4 AST 18 ALT 11 Alkaline Phosphatase 80 Total Protein 6.0 L Albumin 3.4 L Urine Color Yellow Urine Appearance Clear Urine pH 5.5 Ur Specific [place] 1.014 Urine Protein Negative Urine Glucose (UA) Negative Urine Ketones 1+ H Ur Blood (Man) Negative Urine Nitrate Negative Urine Bilirubin Negative Urine Urobilinogen 0.2 Leukocyte Esterase Rfl Negative Final Diagnosis (1) Decreased movement: Code(s): O36.8190 - Decreased movements, unspecified trimester, not applicable or unspecified Status: Acute
== END 2024-05-19 12:35 | disposition home or self-care (01) ==
PROVIDERS: Admitting Provider Obstetrics & Gynecology; PCP Internal Medicine Infectious Disease; Referring Provider Advanced Practice Midwife; Visit Provider Obstetrics & Gynecology
DX: R10.9 Unspecified abdominal pain (principal); R00.2 Palpitations; Z3A.22 22 weeks gestation of pregnancy
CPT/HCPCS: 36415; 76775; 80053; 81003; 85025; 93005; G0378; G0379

== ENCOUNTER 2024-06-06 09:32 | Outpatient (CLI) | payer OTHER, SELFPAY ==
--- NOTE | ~2024-06-06 | US_ITS ---
Right upper quadrant ABDOMINAL ULTRASOUND Ordering provider: Iain Cohen MD History: . RUQ Pain . Comparison: None. FINDINGS: LIVER: Normal size and echotexture. No focal hepatic lesions or perihepatic fluid collections are dolly ntified. Normal flow of the portal vein. GALLBLADDER: Unremarkable. No evidence for stones, sludge, gallbladder wall thickening or pericholecy stic fluid collections. The wall thickness is 2.4 mm. A negative sonographic Palumbo's sign was noted. BILIARY DUCTS: No evidence for intra or extrahepatic biliary dilation. Common bile duct measures 2.3 mm in diameter which is within normal limits. PANCREAS: Normal echotexture and size. UPPER ABDOMINAL AORTA: Normal in caliber. IVC: Patent. FREE FLUID: None. IMPRESSION: Unremarkable right upper quadrant ultrasound of the abdomen. Reviewed, dictated and finalized at location A.
== END 2024-06-06 09:33 | disposition home or self-care (01) ==
PROVIDERS: PCP Internal Medicine Infectious Disease; Visit Provider Obstetrics & Gynecology
DX: R10.11 Right upper quadrant pain (principal)
CPT/HCPCS: 76705

== ENCOUNTER 2024-09-04 20:35 | Observation (INO) | payer OTHER, SELFPAY ==
--- NOTE | 2024-09-04 20:35 | PC.NURSE ---
Pt arrives to unit post fall with contractions.
--- NOTE | 2024-09-04 23:49 | OBADM ---
This patient, Kush Jaffe, admitted to the OB room Labor/Delivery/Recovery 104 for observation. Patient/family oriented to hospital policies and general routines including ID bracelet, bed and alarms, visiting hours, pain management, procedures, bathroom and other care routines, personal items, smoking policy, room service/diet, and visiting hours. Patient/Family are encouraged to report perceived risks to care and to ask questions if they do not understand what they are told or what they should do.
--- NOTE | 2024-09-05 | PC.NURSE ---
Pt discharged with instructions to keep next scheduled appointment and when to return to the unit, pt verbalizes understanding.
[2024-09-05 00:03] VITALS: BMI 35.5
--- NOTE | 2024-09-06 07:54 | PM.OBTRLD ---
OB - Triage/Final Diagnosis Visit Information Date of evaluation: 09/04/24 Reason for evaluation: threatened labor Comments/Additional reasons for admission: I have assessed the risk for this patient, Kush Swartz Ld, and determined that she would benefit from observation care.
== END 2024-09-05 | disposition home or self-care (01) ==
PROVIDERS: Admitting Provider Obstetrics & Gynecology; PCP Internal Medicine Infectious Disease; Visit Provider Obstetrics & Gynecology
DX: O47.1 False labor at or after 37 completed weeks of gestation (principal); Z3A.38 38 weeks gestation of pregnancy
CPT/HCPCS: G0378; G0379

== ENCOUNTER → 2024-09-13 17:12 | Outpatient (RCR) | payer OTHER, SELFPAY ==
[2024-09-13 18:10] VITALS: BP 116/84; PULSE 85
== END ==
LOC: ANHOBOP 17:12
PROVIDERS: PCP Internal Medicine Infectious Disease; Visit Provider Advanced Practice Midwife
DX: R10.2 Pelvic and perineal pain (principal)
CPT/HCPCS: 59025

== ENCOUNTER 2024-09-15 06:12 | Inpatient (IN) | payer OTHER, SELFPAY ==
[2024-09-15] VITALS (70 sets, daily range): BP systolic 104–155; BP diastolic 41–105; PULSE 74–121; RESP 16–18; TEMP 36.4–37.1; O2SAT 96–100
[2024-09-15 07:01] LABS: Glucose Point of Care 87 mg/dl (65-105)
[2024-09-15 07:03] LABS: Basophils Percent Auto 0.2 % (0.2-1.2); Eosinophils Absolute Auto 0.1 K/mm3 (0-0.3); Hematocrit 38.1 % (37.0-47.0); Hemoglobin 13.1 g/dL (12.0-15.0); Immature Granulocyte Absolute 0.02 K/mm3 (0.00-0.031); Immature Granulocyte Percent A 0.2 % (0-0.5); Lymphocytes Absolute Auto 1.66 K/mm3 (0.9-3.2); Lymphocytes Percent Auto 19.1 % (18.3-44.2); Mean Corpuscular HGB Conc 34.4 g/dl (32-36); Mean Corpuscular Hemoglobin 30.3 pg (26-34); Mean Corpuscular Volume 88.2 fl (80-100); Mean Platelet Volume 10.8 fl (7.4-10.4); Monocytes Absolute Auto 0.7 K/mm3 (0.1-0.6); Monocytes Percent Auto 7.9 % (2.6-8.5); Neutrophils Absolute Auto 6.2 K/mm3 (1.3-6.7); Neutrophils Percent Auto 71.6 % (45.5-73.1); Platelet Count Result 177 k/mm3 (150-375); Red Blood Count 4.32 M/mm3 (4.2-5.4); Red Cell Distribution Width 14.2 % (11.5-14.5); White Blood Count 8.7 K/mm3 (4.5-10.0)
[2024-09-15] MEDS: OXYTOCIN 30 UNITS/NS 500 ML 30 UNITS/500 ML BAG IV CONT (07:22)
[2024-09-15] MEDS: LACTATED RINGERS 1,000 ML 125 ML IV CONT (07:22)
--- NOTE | 2024-09-15 07:59 | WPDOBADMIT ---
Obstetrics - Admit Note Admission Note: record reviewed. No pertinent additions to the history and/or any subsequent changes in the physical findings that are not consistent with the expected course of the were found. Additions to the history and/or subsequent changes in the physical findings follow. Admit for IOL, sve /-3 attempted AROM, anticipate vaginal delivery
[2024-09-15 08:49] LABS: HIV 1/2 Ab P24 Ag Result Negative (Negative)
[2024-09-15 09:10] LABS: Rapid Plasma Reagin Non-Reactive (NonReactive)
--- NOTE | 2024-09-15 10:37 | PM.OBPRVD ---
OB - Vaginal Delivery Note Procedure Delivery date: 09/15/24 Induction method: AROM and Per Pitocin Protocol Delivery monitor: External FHT and External Uterine Route of delivery: Episiotomy description: None Laceration Description: None Specimen: No Quantitative Blood Loss (ml): 50 Anesthesia type: Epidural Disposition: Floor Complications: No immediate complications [place] Baby Date of : 09/15/24 Time of : 10:27 Gestational Age by Date: 39 gender: Male Weight (pounds): 6 Weight (ounces): 8 presentation: vertex position: Left Occiput Anterior Placenta delivery description: Spontaneous Cord Vessel Description: 3 Vessels and Delayed Cord Clamping score one minute: 9 score five minutes: 9
[2024-09-15] MEDS: OXYTOCIN 30 UNITS/NS 500 ML 30 UNITS/500 ML BAG 125 UNITS IV CONT (11:03)
[2024-09-15] MEDS: IBUPROFEN 600 MG TABLET PO (13:18)
[2024-09-15] MEDS: COSYNTROPIN 0.25 MG/ML VIAL 1 MG IV PUSH (13:21)
--- NOTE | 2024-09-15 16:45 | PC.NURSE ---
1450. Introductions were made, then consulted with patient to assess needs related to . Mother led the conversation with her?plans to feed?her infant and the?experience so far. Encouraged understanding of the benefits of skin to skin (demonstrating unwrapping infant and placing upright on her chest), stimulating with massage touch, changing positions to encourage wakefulness, how to watch for early feeding cues, responsive feeding, feeding on demand (aiming for 8-12 times in 24 hours, about every 2-3 hours), milk production, building/maintaining a milk supply, duration of feeding, signs of adequate intake/output and how to record on the feeding sheet. Reviewed how to do hand expression per moms request. Reviewed comfort measures of healing with a warm, wet washcloth to rinse breast, then leave open to air-dry, good handwashing when or touching the breast/nipples to prevent infection. Mother voiced understanding of skin to skin, stimulating with massage touch, responsive feedings, hand expressed colostrum, talking to infant to encourage if it has been 2 -2.5 hours since the start of the last , to call if does not latch, or if there is discomfort with . Resources used for education were facilitated with the [visual educational handouts/ tool/mom and baby guide], Inpatient/outpatient resources provided with business card, feeding sheet, name written on the communication board, and the mom/baby guide. Parents voiced understanding of information, demonstrated learning and will call if there is a request for assistance. Reported to the Primary RN.
[2024-09-16] MEDS: ACETAMINOPHEN 325 MG TABLET 650 MG PO ×2 (00:14→19:06)
[2024-09-16] MEDS: IBUPROFEN 600 MG TABLET PO ×3 (00:15→19:07)
[2024-09-16 06:13] LABS: Hematocrit 33.3 % (37.0-47.0); Hemoglobin 10.7 g/dL (12.0-15.0)
[2024-09-16 08:00] VITALS: BP 131/75; PULSE 102; RESP 18; TEMP 36.6; O2SAT 98
--- NOTE | 2024-09-16 08:10 | PC.NURSE ---
Introductions were made, then consulted with patient to assess needs related to . Discussed with mother her?plans to feed?her and the?experience so far. Primary RN had called for assistance because baby hasn't eaten for 5 hours. Mom has baby skin to skin with a heavy fleece blanket. When entering the room, she requested a syringe to give baby some colostrum. Educated that the RN needs to give syringe feedings if needed, but mom didn't currently have any expressed milk for baby. Inquired if it is her intention to put baby to breast and she said yes, that he had just been sleepy. We moved him off mom's chest and change a wet diaper. He was awake and rooting and he was positioned back on mom in a cross cradle hold. He latched eagerly and mom had a lot of colostrum to express to entice him. Mom has large nipples and baby can't get much areola in his mouth for a deeper latch, but maintains the latch well. Encouraged mom to call out for further assistance waking or switching sides. Resources provided for inpatient and outpatient services with the feeding sheet, mom/baby guide and name written on the communication board. Mother voiced understanding of information and will call if there is a request for assistance. Reported to the Primary RN.
[2024-09-16] MEDS: MULTIVIT/MIN/PREN/FOL AC/IRON TABLET 1 TAB PO (08:31)
--- NOTE | 2024-09-16 08:38 | P.PNOB_ITS ---
OB - PN: Subj Subjective Date/time seen: 09/16/24 08:38 Patient comments: no complaints, pain well controlled, incisional pain, tolerating diet and flatus present OB - PN: Obj Data Labs 09/16/24 04:55 Labs: Laboratory Results - last 24 hr 09/15/24 09/16/24 06:38 04:55 Hgb 10.7 L Hct 33.3 L RPR Non-reactive HIV 1&2 Ab/P24 Ag 4thGn Negative OB - PN A/P Plan day: 1 Plan: routine care Comments: No problems, routine care Time Spent With Patient Time: Total time spent is greater than 50% in coordination of care (as documented) at patient's floor/unit and/or counseling patient: Exam 2 Const: General: comfortable, no acute distress and alert Resp: Effort & Inspection: normal respiratory effort Auscultation: no crackles, no rales and no rhonchi Cardio: Rate: regular rate Heart sounds: no click, no murmurs and no rubs GI: Inspection: non-distended GI Palp: No Tenderness to palpation present (GI) Auscultation: normal bowel sounds Other: Incision - CDI Extrem: General: normal to inspection, no pedal edema and no calf tenderness
--- NOTE | 2024-09-16 15:07 | WPDANLDPN2 ---
Anes-Prog Note L&D Date/Time: 09/16/24 15:07 Comfortable throughout: labor and delivery Neuraxial method: epidural Epidural/Spinal procedure site: clean & non-tender Neuro status: Neuro function grossly intact. Cardiovascular status: normal Respiratory status: normal Airway patency: baseline Mental status: baseline Post-Op hydration status: normal Vital Signs: Last Vital Signs Temp 37.1 C 09/15/24 22:15 Pulse 91 09/15/24 22:15 Resp 16 09/15/24 22:15 BP 123/80 09/15/24 22:15 Pulse Ox 99 09/15/24 22:15 O2 Del Method Room Air 09/15/24 21:21 Pain score (VAS): 0 I/O: Intake & Output 09/15/24 09/16/24 09/16/24 23:59 07:59 15:59 Intake Total 500 Balance 500 Post-procedural complaints: none Patient feedback: Patient satisfied with anesthetic care.
[2024-09-16 18:50] VITALS: BP 136/80; PULSE 109; RESP 16; TEMP 36.7; O2SAT 98
[2024-09-16] MEDS: WITCH HAZEL 40 PADS 1 PAD TOPICAL (19:06)
[2024-09-16 21:16] VITALS: BP 119/80; PULSE 93; RESP 16; TEMP 36.8; O2SAT 98
[2024-09-17] MEDS: ACETAMINOPHEN 325 MG TABLET 650 MG PO ×2 (05:42→14:43)
[2024-09-17] MEDS: IBUPROFEN 600 MG TABLET PO ×2 (05:42→14:43)
[2024-09-17] MEDS: MULTIVIT/MIN/PREN/FOL AC/IRON TABLET 1 TAB PO (07:35)
[2024-09-17 07:45] VITALS: BP 120/81; PULSE 94; RESP 16; TEMP 36.7; O2SAT 98
--- NOTE | 2024-09-17 12:08 | P.PNOB_ITS ---
OB - PN: Subj Subjective Date/time seen: 09/17/24 12:08 Patient comments: no complaints, pain well controlled and tolerating diet OB - PN: Obj Data Labs 09/16/24 04:55 OB - PN A/P Plan day: 2 Plan: routine care and discharge home Time Spent With Patient Time: Total time spent is greater than 50% in coordination of care (as documented) at patient's floor/unit and/or counseling patient: Exam 2 Const: General: comfortable and no acute distress Resp: Effort & Inspection: normal respiratory effort Auscultation: no rales, no rhonchi and no wheezes Cardio: Rate: regular rate Heart sounds: no click, no murmurs and no rubs GI: GI Palp: Yes Soft to palpation and No Tenderness to palpation present (GI) Auscultation: normal bowel sounds Extrem: General: normal to inspection, no pedal edema and no calf tenderness
--- NOTE | 2024-09-17 12:09 | P.DS_ITS ---
DS: Admitting Diagnosis Discharge Date September 17, 2024 Admitting Diagnosis term DS: Discharge Diagnosis Discharge Diagnosis (1) Post term , delivered: Code(s): O48.0 - Post-term Status: Acute OB - DS: Summary OB Procedures : None OB Procedures Intrapartum: Spontaneous Vag Delivery OB Procedures: : None Peripartum Data Laceration Description: None Episiotomy description: None Time Spent with Patient Time attestation: Total time spent providing and/or coordinating discharge services: Discharge Plan Discharge Discharging Clinician: Iain Cohen Activity: pelvic rest Diet: regular Patient Language: Faroese Follow-up/Referrals: Iain Cohen MD [Physician] - Discharge Medications: Continued PNV [id number] [] 28 mg iron- 800 mcg tablet 1 tablet PO DAILY Date of admission: 09/15/24 06:12 Primary Care Provider: Hardy,Tre Campa Admitting Provider: Iain Cohen Attending physician on admission: Iain Cohen Condition: Stable
--- NOTE | 2024-09-17 12:47 | PC.NURSE ---
Patient was given the opportunity to view the discharge video Mother & Baby Care, The First Two Weeks and to ask questions. Patient declined viewing the video and has been given the mother/baby guide for home reference.
[2024-09-18 10:45] VITALS: BP 116/65; PULSE 104; RESP 18; TEMP 36.4; O2SAT 100
== END 2024-09-17 17:50 | disposition home or self-care (01) | DRG 560 ==
LOC: ANHLDR 06:19 → ANHOB2 14:08
PROVIDERS: Advanced Practice Midwife; Admitting Provider Obstetrics & Gynecology; PCP Internal Medicine Infectious Disease; Visit Provider Obstetrics & Gynecology
DX: O24.429 Gestational diabetes mellitus in childbirth, unspecified control (principal); O62.3 Precipitate labor; Z3A.39 39 weeks gestation of pregnancy; Z37.0 Single live birth
CPT/HCPCS: 36415; 82948; 85014; 85018; 85025; 86592; 86703; 86850; 86900; 86901; A9270; G0432; J0834; J2590; J2795; J7120

== ENCOUNTER 2025-08-08 10:49 | Emergency (ER) | payer OTHER, SELFPAY ==
[2025-08-08 11:01] VITALS: BP 146/84; PULSE 98; RESP 20; TEMP 36.3; O2SAT 99
--- NOTE | 2025-08-08 11:28 | ED.URI ---
HPI - URI/Sore Throat General Chief Complaint: Upper Respiratory Infection Stated Complaint: URI symptoms Time Seen by Provider: 08/08/25 11:23 Source: patient and RN notes reviewed Mode of arrival: ambulatory Limitations: no limitations History of Present Illness HPI Narrative: 24-year-old female patient presents today complaining of a 3-4 day history of sore throat, hoarse voice, nasal congestion, cough. Denies fever or shortness of breath. She has been taking Tylenol, ibuprofen, Chloraseptic spray with some mild relief. She currently rates her pain 8/10. Denies any known sick contacts. No history of asthma. Related Data Home Medications ?Medication ?Instructions ?Recorded ?Confirmed ?Last Taken ?Type bupropion HCl 150 mg 24 hr tablet, mg PO 08/08/25 Unknown History extended release escitalopram oxalate 20 mg tablet mg 08/08/25 Unknown History sertraline 50 mg tablet mg 08/08/25 Unknown History Allergies Allergy/AdvReac Type Severity Reaction Status Date / Time No Known Allergies Allergy Verified 08/08/25 10:51 [facility] Past Medical History Medical History IUP (intrauterine ), incidental Sepsis due to urinary tract infection Surgical History Surgical History History of dental surgery gums History of tonsillectomy Family History Family History Other Unknown family medical history Social History Social History Smoking status: Never smoker Alcohol intake: never Substance use: never Substance use type: does not use Lack of Transportation: No Lack of Food: Never True Current Housing: I Have Housing Concerned About Future Housing: No Difficulty Paying Gas/Electric Bills: No Difficulty Paying for Meds: No Currently Unemployed: No Education: High School Diploma/GED Difficulty w/ Childcare or Family Care: No Living arrangements: with family Additional living arrangements comments: PARENTS AND CHILDREN Gender identity (if verbalized by the patient): Female Spiritual care concerns: No Comments At time of signature, I have reviewed and agree with nursing past medical, surgical, social and family history unless otherwise noted. Please see nursing chart for further information. There is no relevant family history pertinent to the presenting complaint Exam Narrative: GENERAL: Ill-appearing, well-nourished, and in no acute distress. HEAD: Normocephalic, atraumatic. EYES: EOMI. No redness or drainage. Conjunctivae normal. ENT: Mucous membranes pink and moist. Nares congested. No rhinorrhea. TMs normal bilaterally. Throat mildly erythematous without edema or exudate. Uvula midline. NECK: Normal AROM. Supple. No lymphadenopathy. CHEST: No respiratory distress. Clear to auscultation. HEART: Regular rate and rhythm. No murmur appreciated. EXTREMITIES: Normal range of motion. No edema. SKIN: Warm, dry, no rash. Capillary refill normal. Normal skin turgor. NEURO: No focal deficits. Alert and oriented x3. Gait steady. PSYCH: Normal affect. No signs of depression or anxiety. Course Course Level of Care: Express Care Visit Vital Signs Vital signs: Vital Signs Temperature 97.4 F L 08/08/25 11:01 Pulse Rate 98 08/08/25 11:01 Respiratory Rate 20 08/08/25 11:01 Blood Pressure 146/84 H 08/08/25 11:01 Pulse Oximetry 99 08/08/25 11:01 Oxygen Delivery Room Air 08/08/25 11:01 Temperature 97.4 F L 08/08/25 11:01 Pulse Rate 98 08/08/25 11:01 Respiratory Rate 20 08/08/25 11:01 Blood Pressure 146/84 H 08/08/25 11:01 Pulse Oximetry 99 08/08/25 11:01 Oxygen Delivery Room Air 08/08/25 11:01 Reviewed MDM MDM Narrative Medical decision making narrative: 24-year-old female patient presents today complaining of a 3-4 day history of sore throat, hoarse voice, nasal congestion, cough. Denies fever or shortness of breath. She has been taking Tylenol, ibuprofen, Chloraseptic spray with some mild relief. She currently rates her pain 8/10. Denies any known sick contacts. No history of asthma. Upon exam, patient is mildly ill appearing with nasal congestion and mildly erythematous throat. Rapid strep negative, culture pending. Symptoms likely viral in etiology. Discussed [id number] medication use and duration of illness. No prescription medications indicated at this time. Anticipatory guidance given. Vital signs stable. Differential Diagnosis Differential Diagnosis: Strep throat, URI, pharyngitis, COVID-19, influenza Lab Data Labs: Lab Results 08/08/25 08/08/25 Range/Units 11:13 11:44 POC Influenza A Ag Negative (Negative) POC Influenza B Ag Negative (Negative) POC SARS CoV-2 Ag Negative (Negative) POC Grp A Strep Screen Negative (Negative) Critical Care Time Critical Care Time Critical Care Time: No Discharge Plan Discharge Clinical Impression: Upper respiratory infection Qualifiers: URI type: unspecified URI Qualified Code(s): J06.9 - Acute upper respiratory infection, unspecified Patient Disposition: Home Condition: Stable Instructions: Upper Respiratory Infection (DC) Additional Instructions: Your COVID-19, influenza, and rapid strep swab were negative today at [facility]. You will be notified in a few days if the culture comes back positive for strep, and appropriate antibiotics will be called in for you at that time. Your symptoms are likely due to a viral illness, which is not treated with antibiotics. Viral symptoms can be present for up to 7-10 days. Take Tylenol or ibuprofen for fever or pain. Rest and stay hydrated. Follow up with your PCP in 7 days if symptoms are not improving. Go to the ER immediately if you have any difficulty breathing or swallowing. Patient Language: Turkish Prescriptions: No Action sertraline 50 mg tablet escitalopram oxalate 20 mg tablet bupropion HCl 150 mg tablet extended release 24 hr PO Follow-up/Referrals: UNKNOWN,DOCTOR [Primary Care Provider] Time of Disposition: 11:52
[2025-08-08 12:01] LABS: EDSTREPNEGPOS1 Negative (Negative)
[2025-08-08 12:01] LABS: EDCOVIDSCREEN Negative (Negative); EDINFLUASCREEN Negative (Negative); EDINFLUBSCREEN Negative (Negative)
--- OUTSIDE RECORDS SUMMARY | 2025-08-08 12:55 | XMS_ITS | Clinical Summary ---
Author Organization [facility] Address [address] [place] [address] Phone Care Team Providers Care Pneumatic Deicer Inspector Name Role Phone Tre Dash MD Primary Care Provider [phone] Allergies Active Allergy Reactions Criticality Noted Date Comments Tioconazole Other (see Comments) Medium 08/01/2020 Weakness, achy joints and breast tenderness Medications meclizine (ANTIVERT) 25 MG Tablet Take 1 Tablet by mouth 3 times daily as needed for Dizziness or Nausea. 30 Tablet 2 Active Encounters Date Type Department Care Team Description 06/18/2025 Lab Requisition [facility] [address] [place] [id number] Katie Batista, STATEMENT CLERKS SUPERVISOR, EQUIP MAINT ENG 06/18/2025 Travel from Last 3 Months Family History Medical History Relation Name Comments Psoriasis Father charlies anxiety No Known Problems Mother Wanda Relation Name Status Comments Father charlies Alive Mother Wanda Alive Social History Tobacco Use Types Packs/Day Years Used Date Smoking Tobacco: Never Smokeless Tobacco: Never Alcohol Use Standard Drinks/Week Comments Not Currently 0 (1 standard drink = 0.6 oz pur e alcohol) Comments No Sex and Gender Information Value Date Recorded Sex Assigned at Not on file Legal Sex Female 10:35 PM CDT Gender Identity Not on file Sexual Orientation Not on file Last Filed Vital Signs Vital Sign Reading Time Taken Comments Blood Pressure 126/82 09/02/2021 11:20 PM FREELANCE OPERATOR Pulse 90 09/02/2021 11:20 PM FREELANCE OPERATOR Temperature 36.8 C (98.3 F) 09/02/2021 6:28 PM FREELANCE OPERATOR Respiratory Rate 18 09/02/2021 11:20 PM FREELANCE OPERATOR Oxygen Saturation 99% 09/02/2021 11:20 PM FREELANCE OPERATOR Inhaled Oxygen Concentration - - Weight 97.5 kg (215 lb) 09/02/2021 6:28 PM FREELANCE OPERATOR Height 175.3 cm (5' 9) 09/02/2021 6:28 PM FREELANCE OPERATOR Body Mass Index 31.75 09/02/2021 6:28 PM FREELANCE OPERATOR Plan of Treatment Health Maintenance Due Date Last Done Comments Hepatitis C Virus (HCV) Screening 2001 Meningococcal B Immunization (1 of 2 - Standard) 2017 Pap Smear 2022 Influenza Immunization (#1) 2025 SARS-COV-2 Immunization ( - season) 2025 Respiratory Syncytial Virus (RSV) Immunization (Adult) (1 - 1-dose 75+ series) 2076 Hepatitis B Immunization Completed 003, 07/04/2002, 02/06/2002, Additional history exists Pneumococcal Immunization Combined Aged Out 04/04/2003, 01/29/2003 No longer eligibl e based on patient's age to complete this topic Measles Mumps Rubella (MMR) Immunization Discontinued 06/03/2006, 01/29/2003 Polio (IPV) Immunization Discontinued 006, 04/04/2003, 05/01/2002, Additional history exists Varicella Immunization Completed 06/03/2006, 2002 Hepatitis A Immunization Discontinued 04/21/2007, 05/23 Meningococcal Immunization (ACWY) Aged Out 04/06/2016 No longer eligible based on patient's age to complete this topic Human Papillomavirus (HPV) Immunization Completed 07/12/2017, 04/06/2016 DTaP/Tdap/Td Immunization Discontinued 2018, 04/12/2013, 06/03/2006, Additional history exists TdaP Immunization Completed 12/29/2018, 04/12/2013 Rotavirus Immunization Aged Out No lo nger eligible based on patient's age to complete this topic Goals Goal Patient Goal Type Associated Problems Recent Progress Patient-Stated? Author Behavioral Health Behavioral Health No Kristina Apodaca, TOP CAGER Note: Grief and loss of brotherGood. Goal Reviewed with: patient Readiness to change: Ready to change Department associated with goal: [facility] Steps to achieve goal: 1. will attend at least four counseling sessions either individual and/or group, engaging in each session by verbalizing and processing thoughts and feelings related to grief and loss. 2. will report reduced feelings of guilt and resentment. 3. will identify and implement at least two outlets for grief and or coping skills to aid in managing problematic responses to grief. Behavioral Health Behavioral Health Yes Kristina Apodaca, NADIA Note: to be able to cope and handle things differently Goal Reviewed with: patient today Readiness to change: Ready to change Department associated with goal: [facility] Steps to achieve goal: will identify at least two coping skills/activities/habits that have helped to manage anxiety in the past. will identify at least three new coping skills/activities/habits that may help to prevent and/or cope with anxiety. 3. will identify a plan to implement coping skills and follow this plan for two weeks and evaluate the impact on anxiety 4. Will attend individual and/or group therapy at least 1x/month Procedures Procedure Name Priority Date/Time Associated Diagnosis Comments QUANTIFERON-TB GOLD PLUS Routine 06/18/2025 10:30 AM CDT from Last 3 Months Results * QUANTIFERON-TB GOLD PLUS (06/18/2025 10:30 AM CDT) NIL CONTROL 0.01 <8.01 IU/mL 06/20/2025 10:11 AM CDT [facility] TB ANTIGEN 1 0.03 <0.35 IU/mL 06/20/2025 10:11 AM CDT [facility] TB ANTIGEN 2 0.04 <0.35 IU/mL 06/20/2025 10:11 AM CDT [facility] MITOGEN CONTROL 9.99 >0.49 IU/mL 06/20/20 10:11 AM CDT [facility] INTEPRETATION TB NEGATIVE NEGATIVE, NEGATIVE (TB antigen response less than 25% of internal negative control value) 06/20/2025 10:11 AM T [facility] Comment:No immune response t o Mycobacterium tuberculosis antigens was noted. M. tuberculosis infection unlikely. Blood Venipuncture / Unknown 06/18/2025 10:30 AM CDT 06/18/2025 11:25 AM CDT Narrative [facility] - 06/20/2025 10:11 AM CDT A POSITIVE QUANTIFERON-TB GOLD PLUS RESULT SHOULD NOT BE THE SOLE OR DEFINITIVE BASIS FOR DETERMINING INFECTION WITH M.TUBERCULOSIS. Diagnosing or excluding tuberculosis disease, and assessing the probability of LTBI, requires a combination of epidemiological, historical, medical and diagnostic findings (e.g., acid fast bacilli (AFB) smear and culture, chest xray) that should be taken into account when interpreting QFT-Plus results. Furthermore, the magnitude of the measured gamma interferon level cannot be correlated to stage or degree of infection, level of immune responsiveness, or likelihood for progression to active disease. The Nil control adjusts for background (e.g., elevated levels of circulating gamma interferon or presence of heterophile antibodies). The Mitogen control serves as an internal positive control and verifies each specimen tested can produce a gamma interferon response. Low mitogen may occur with insufficient lymphocytes, reduced lymphocyte activity due to improper specimen handling, filling/mixing of the mitogen tube, or inability of the patient's lymphocytes to generate gamma interferon. Infection with other Mycobacteria, including M. kansasii, M. szulgai, and M. marinum, may cause false positive results. A negative QuantiFERON-TB Gold Plus result does not preclude the possibility of M. tuberculosis infection or tuberculosis disease: false negative results can be due to incorrect blood sample collection/ improper handling of the specimen, stage of infection (e.g., specimen obtained prior to the development of cellular immune response), co-morbid conditions which affect immune function, or other individual immunological factors. The minimum number of lymphocytes required for a reliable test has not been established and may also be variable. Diagnostic testing for Mycobacterium tuberculosis using Interferon Gamma Release Assays should follow applicable published guidelines, including when testing in populations such as children, women, and HIV-infected or otherwise immunocompromised individuals. https://www.cdc.gov/tb/publications/guidelines/testing.htm us Katie Batista STATEMENT CLERKS SUPERVISOR, EQUIP MAINT ENG IMMUNOLOGY ORDERABL ES Final Result [facility] [address] [place] [address], [place] from Last 3 Months Insurance MEDICAID [facility] Care Teams Pneumatic Deicer Inspector Relationship Specialty Start Date End Date Tre Dash MD [address] [employer], [address] [place] [address] PCP - General Infectious Disease 03/21/21
--- OUTSIDE RECORDS SUMMARY | 2025-08-08 12:55 | XMS_ITS | Encounter Summary ---
Author Organization [facility] Healthcare Address [address] [place] [address] Care Team Providers Care Teacher Adult Education Name Role Phone Anjali Hauser NP Unavailable David Sequeira MD Unavailable [phone] Selvin Landry MD Unavailable [phone] Iain Cohen MD Unavailable [phone] Kandace Marin NP Unavailable [phone] Nancy Reyez NP Unavailable Richard Díaz MD Unavailable [phone] Dennis Pisano MD Unavailable [phone] Tre Dash MD Primary Care Provider [phone] Encounter Details Date Type Department Care Team (Late st Contact Info) Description 08/06/2025 Telephone [facility] Medical Group [facility] [address] [place] [address] Sherrie Barrett NP [address] [place] [address] Social History Tobacco Use Types Packs/Day Years Used Date Smoking Tobacco: Never Smokeless Tobacco: Never Alcohol Use Standard Drinks/Week Comments No 0 (1 standard drink = 0.6 oz pur e alcohol) Social Connection and Isolation Panel Answer Date Recorded In a typical week, how many times do you talk on the phone with family, friends, or neighbors? More than three times a week 03/29/2023 How often do you get togethe r with friends or relatives? More than three times a week 03/29/2023 How often do you attend chur ch or taoist services? Never 03/29/2023 Do you belong to any clubs o r organizations such as anabaptism groups, unions, fraternal or athletic groups, or school groups? No 03/29/2023 How often do you attend meet ings of the clubs or organizations you belong to? Never 03/29/2023 Marital Status Not on file 03/29/2023 AUDIT-C Answer Date Recorded Q1: How often do you have a drink containing alcohol? Never 03/22/2023 Q2: How many drinks containi ng alcohol do you have on a typical day when you are drinking? Patient does not drink Q3: How often do you have si x or more drinks on one occasion? Never 03/22/2023 Overall Financial Resource Strain (CARDIA) Answe r Date Recorded How hard is it for you to pa y for the very basics like food, housing, medical care, and heating? Not hard at all 03/29/2023 PHQ-2 Answer Date Recorded PHQ-2 Total Score (If total score is 3 or more points, staff should administer the PHQ-9) 0 06/07/2025 [facility] - Occupational Stress Questionnaire Answer Date Recorded Do you feel stress - tense, restless, nervous, or anxious, or unable to sleep at night because your mind is troubled all the time - these days? Not at all 03/29/2023 Exercise Vital Sign Answer Date Recorde d On average, how many days pe r week do you engage in moderate to strenuous exercise (like a brisk walk)? 0 days 03/29/2023 On average, how many minutes do you engage in exercise at this level? 0 min 03/29/2023 Hunger Vital Sign Answer Date Recorded Within the past 12 months, y ou worried that your food would run out before you got the money to buy more. Never true 03/29/20 23 Within the past 12 months, t he food you bought just didn't last and you didn't have money to get more. Never true 03/29/2023 PRAPARE - Transportation Answer Date Re corded In the past 12 months, has l ack of transportation kept you from medical appointments or from getting medications? No 02/2023 In the past 12 months, has l ack of transportation kept you from meetings, work, or from getting things needed for daily living? No 03/29/2023 Housing Stability Vital Sign Answer Julio Cesar e Recorded In the last 12 months, was t here a time when you were not able to pay the mortgage or rent on time? No 03/29/2023 In the last 12 months, how many places have you lived? 2 03/29/2023 In the last 12 months, was t here a time when you did not have a steady place to sleep or slept in a senior living (including now)? No 03/29/2023 PHQ-9 Answer Date Recorded PHQ-9 Total Score 9 12/20/2024 Personal Safety Answer Date Recorded Have you ever been in or are you currently in a harmful physical or emotional relationship or is someone making you feel afraid or unsafe? Denies 03/29/2023 Comments Unknown Sex and Gender Information Value Date Recorded Sex Assigned at Not on file Legal Sex Female 4:41 PM SERVICE MANAGER Gender Identity Not on file Sexual Orientation Straight 01/20/2019 6: 18 AM CDT documented as of this encounter Miscellaneous Notes * Telephone Encounter - Marleen Lara - 08/07/2025 8:23 AM CST Spoke with patient and she is going to contact her insurance today to find out what they might cover for weight loss. Pt was okay with cancelling appointment today because she is sick now anyway. Pt states she will call back after she talks with her insurance. ICE MANAGER * Telephone Encounter - Sherrie Barrett NP - 08/06/2025 4:02 PM SERVICE MANAGER Please call patient and ask her to call her insurance company and ask them what medications are covered for obesity/weight loss prior to appointment. Please reschedule appointment to later this week after she has called her insurance company. Thank you. ICE MANAGER documented in this encounter Plan of Treatment Not on file documented as of this encounter Visit Diagnoses Not on filedocumented in this encounter Care Teams Teacher Adult Education Relationship Specialty Start Date End Date Tre Dash MD [address] [place] [address] PCP - General Internal Medicine 12/24/23 Anjali Hauser MANAGER MULTICULTURAL [address] [place] [address] [place] [address] Nurse Practitioner Obstetrics and Gynecology 02/21/20 David Sequeira MD [address] [place] [address] [address] [place], [place] [address], [place] [address] Diamond Wheel Molder Obstetrics and Gynecology 02/20/21 Selvin Landry MD [address] [place] [address] [address] [place], [place] [address], [place] [address] Consulting Physician Gastroenterology 06/13/21 Iain Cohen MD [address] [place] [address] Consulting Physician Obstetrics and Gynecology 11/04/22 Kandace Marin NP [address] [place] [address] Nurse Practitioner Obstetrics and Gynecology 11/30/22 Nancy Reyez NP [address] [place] [address] Nurse Practitioner Obstetrics and Gynecology 11/30/22 Richard Díaz MD [address] [place] [address] DR [address] Viky [address] [address] Consulting Physician Obstetrics and Gynecology 03/29/23 Dennis Pisano MD [address] [place] [address] [address] [place], [place] [address] [address] Consulting Physician Neurology 04/06/23 documented as of this encounter
--- OUTSIDE RECORDS SUMMARY | 2025-08-08 12:55 | XMS_ITS | Clinical Summary ---
Author Organization [facility] [employer] Address [address] [place] [address] Care Team Providers Care Clinical Statistics Manager Name Role Phone Anders Canchola MD Unavailable [phone] Source Comments Truly Acc[employer]pl[employer],non-owned Affiliates and Associated Physician Practices is amultiple site organization consisting of ambulatory clinics and hospital sitesin [place], [place], [place] and [place]. This disclosure is being madepursuant to the Care Everywhere program and may not contain all information available regarding this patient. Last updated 18.SHERPANDIPITY Allergies No known active allergies Medications * Be aware that medications may not be up to date on this document. Alwaysverify current medications with the patient. No known medications Active Problems No known active problems Social History Tobacco Use Types Packs/Day Years Used Date Smoking Tobacco: Never Assessed Comments Unknown Sex and Gender Information Value Date Recorded Sex Assigned at Not on file Legal Sex Female 8:56 AM APPRENTICE ELECTRICIAN Gender Identity Not on file Sexual Orientation Not on file Last Filed Vital Signs Vital Sign Reading Time Taken Comments Blood Pressure 102/74 07/23/2019 4:02 PM APPRENTICE ELECTRICIAN Pulse 97 07/23/2019 4:02 PM APPRENTICE ELECTRICIAN Temperature 36.3 C (97.4 F) 07/23/2019 4:02 PM APPRENTICE ELECTRICIAN Respiratory Rate 16 07/23/2019 4:02 PM APPRENTICE ELECTRICIAN Oxygen Saturation 99% 11/23/2016 11:25 AM CDT Inhaled Oxygen Concentration - - Weight 90.7 kg (200 lb) 07/23/2019 4:02 PM APPRENTICE ELECTRICIAN Height 175.3 cm (5' 9) 07/23/2019 4:02 PM APPRENTICE ELECTRICIAN Body Mass Index 29.53 07/23/2019 4:02 PM APPRENTICE ELECTRICIAN Plan of Treatment Health Maintenance Due Date Last Done Comments HIV SCREENING 2016 HPV VACCINE (1 - 3-dose series) 2016 CHLAMYDIA/GONORRHEA SCREENING 2017 MENINGOCOCCAL (Group B) VACC INE SHARED DECISION-MAKING (1 of 2 - Standard) 2017 HEPATITIS C SCREENING 11/07/2019 DTAP/TDAP/TD VACCINES (1 - Tdap) 2020 HEPATITIS B VACCINE (1 of 3 - 19+ 3-dose series) 2020 PAP SMEAR 2022 DEPRESSION SCREENING 08/23/2024 COVID-19 VACCINE (1 - 2024-2 6 season) 2025 INFLUENZA VACCINE (#1) 2025 ZOSTER VACCINE (1 of 2) 11/12/2051 HIB VACCINE Aged Out No longer eligi ble based on patient's age to complete this topic MENINGOCOCCAL GROUPS A/C/Y/W VACCINE Aged Out No longer eligible b ased on patient's age to complete this topic PNEUMOCOCCAL VACCINE Aged Out No long er eligible based on patient's age to complete this topic Insurance [place] [employer] [address] [facility] Care Teams Clinical Statistics Manager Relationship Specialty Start Date End Date Anders Canchola MD [address] [place], [place] [id number] Pediatrics 07/06/16
--- OUTSIDE RECORDS SUMMARY | 2025-08-08 12:55 | XMS_ITS | Encounter Summary ---
Author Organization [facility] Address [address] [place] [address] Phone Care Team Providers Care Family Specialist Name Role Phone Anjali Hauser NP Unavailable David Sequeira MD Unavailable [phone] Tre Dash MD Primary Care Provider [phone] Selvin Landry MD Unavailable [phone] Iain Cohen MD Unavailable [phone] Kandace Marin BRAKE REPAIR MECHANIC Unavailable [phone] Nancy Reyez NP Unavailable Jason Doran MD Primary Care Provider [phone] Richard Díaz MD Unavailable [phone] Dennis Pisano MD Unavailable [phone] Tre Dash MD Primary Care Provider [phone] Encounter Details Date Type Department Care Team (Late st Contact Info) Description 04/30/2022 Orders Only [facility] [address] [place] [address] Tre Dash MD [address] [place] [address] Social History Tobacco Use Types Packs/Day Years Used Date Smoking Tobacco: Never Smokeless Tobacco: Never Alcohol Use Standard Drinks/Week Comments No 0 (1 standard drink = 0.6 oz pur e alcohol) AUDIT-C Answer Date Recorded Q1: How often do you have a drink containing alc ohol? Never 06/13/2021 Q2: How many drinks containi ng alcohol do you have on a typical day when you are drinking? Patient declined 06/13/2021 Q3: How often do you have si x or more drinks on one occasion? Never 06/13/2021 PHQ-2 Answer Date Recorded PHQ-2 Total Score (If total score is 3 or more points, staff should administer the PHQ-9) 0 03/26/2022 Comments Unknown Sex and Gender Information Value Date Recorded Sex Assigned at Not on file Legal Sex Female 4:41 PM PLUNKET NURSE Gender Identity Not on file Sexual Orientation Straight 01/20/2019 6: 18 AM CDT documented as of this encounter Plan of Treatment Not on file documented as of this encounter Procedures Procedure Name Priority Date/Time Associated Diagnosis Comments SCAN - LABS 04/30/2022 documented in this encounter Results * SCAN - LABS (04/30/2022) us Tre Dash MD Final Result documented in this encounter Visit Diagnoses Not on filedocumented in this encounter Additional Health Concerns Infection Onset Date Last Indicated Resolved Time COVID19 05/14/2022 05/14/2022 05/24/2022 3:05 AM CDT COVID: Recovered Comment:Added based on recent COVID infection. 05/24/2022 05/27/2022 09/21/2022 3:[address] COVID: Suspected 06/26/2022 06/26/2022 06/27/2022 3:06 AM CDT COVID: Suspected 09/01/2022 09/01/2022 09/01/2022 11:19 AM PLUNKET NURSE documented as of this encounter Care Teams Family Specialist Relationship Specialty Start Date End Date Tre Dash MD [address] [place] [address] PCP - General Internal Medicine 06/20/21 03/28/23 Jason Doran MD [address] [place] [address] PCP - General Internal Medicine 03/29/23 04/05/23 Tre Dash MD [address] [place] [address] PCP - General Internal Medicine 12/24/23 Anjali Hauser NP [address] [facility] [address] [address] Nurse Practitioner Obstetrics and Gynecology 02/21/20 David Sequeira MD [address] [facility] [address] [place] [address] Lactation Specialist Obstetrics and Gynecology 02/20/21 Selvin Landry MD [address] [place] [address] Consulting Physician Gastroenterology 06/13/21 Iain Cohen MD [address] [place] [address] Consulting Physician Obstetrics and Gynecology 11/04/22 Kandace Marin NP [address] [place] [address] Nurse Practitioner Obstetrics and Gynecology 11/30/22 Nancy Reyez NP [address] [place] [address] Nurse Practitioner Obstetrics and Gynecology 11/30/22 Richard Díaz MD [address] [facility] [address] [place] [address] Consulting Physician Obstetrics and Gynecology 03/29/23 Dennis Pisano MD [address] [place] [address] [address] [place] [address] Consulting Physician Neurology 04/06/23 documented as of this encounter
--- OUTSIDE RECORDS SUMMARY | 2025-08-08 12:55 | XMS_ITS | Encounter Summary ---
Author Organization [facility] Address [address] [place] [address] Phone Care Team Providers Care Electromechanical Technologist Name Role Phone Tre Dash MD Primary Care Provider Encounter Details Date Type Department Care Team (Late st Contact Info) Description 06/18/2025 Lab Requisition [facility] [address] [place] [address] Katie Batista, ACCOUNTANT CLERK, INGREDIENT SCALER HELPER [address] [place] [address] Social History Tobacco Use Types Packs/Day Years Used Date Smoking Tobacco: Never Smokeless Tobacco: Never Alcohol Use Standard Drinks/Week Comments Not Currently 0 (1 standard drink = 0.6 oz pur e alcohol) Comments No Sex and Gender Information Value Date Recorded Sex Assigned at Not on file Legal Sex Female 10:35 PM CDT Gender Identity Not on file Sexual Orientation Not on file documented as of this encounter Plan of Treatment Not on file documented as of this encounter Goals Goal Patient Goal Type Associated Problems Recent Progress Patient-Stated? Author Behavioral Health Behavioral Health No Kristina Apodaca, FORENSIC PSYCHOLOGIST Note: Grief and loss of brotherGood. Goal Reviewed with: patient Readiness to change: Ready to change Department associated with goal: [facility] Steps to achieve goal: [...] Behavioral Health Behavioral Health Yes Kristina Apodaca, FORENSIC PSYCHOLOGIST Note: to be able to cope and handle things differently Goal Reviewed with: patient today Readiness to change: Ready to change Department associated with goal: [facility] Steps to achieve goal: [...] individual and/or group therapy at least 1x/month documented as of this encounter Procedures Procedure Name Priority Date/Time Associated Diagnosis Comments QUANTIFERON-TB GOLD PLUS Routine 06/18/2025 10:30 AM CDT documented in this encounter Results * QUANTIFERON-TB GOLD PLUS (06/18/2025 10:30 AM CDT) NIL CONTROL 0.01 <8.01 IU/mL 06/20/2025 10:11 AM CDT [facility] TB ANTIGEN 1 0.03 <0.35 IU/mL 06/20/2025 10:11 AM CDT [facility] TB ANTIGEN 2 0.04 <0.35 IU/mL 06/20/2025 10:11 AM CDT [facility] MITOGEN CONTROL 9.99 >0.49 IU/mL 06/20/20 10:11 AM CDT [facility] INTEPRETATION TB NEGATIVE NEGATIVE, NEGATIVE (TB antigen response less than 25% of internal negative control value) 06/20/2025 10:11 AM CDT [facility] Comment:No immune response t o Mycobacterium tuberculosis antigens was noted. M. tuberculosis infection unlikely. Blood Venipuncture / Unknown 06/18/2025 10:30 AM CDT 06/18/2025 11:25 AM CDT Narrative [facility] - 06/20/2025 10:11 AM CDT A [...] otherwise immunocompromised individuals. https://www.cdc.gov/tb/publications/guidelines/testing.htm us Katie Batista ACCOUNTANT CLERK, INGREDIENT SCALER HELPER IMMUNOLOGY ORDERABL ES Final Result [facility] [address], documented in this encounter Visit Diagnoses Not on filedocumented in this encounter Care Teams Electromechanical Technologist Relationship Specialty Start Date End Date Tre Dash MD [address], [address] [place] [address] PCP - General Infectious Disease 03/21/21 documented as of this encounter
--- OUTSIDE RECORDS SUMMARY | 2025-08-08 12:55 | XMS_ITS | Encounter Summary ---
Author Organization [facility] Address [address] [place] [address] Phone Care Team Providers Care Design Painter Name Role Phone Anjali Hauser NP Unavailable David Sequeira MD Unavailable [phone] Tre Dash MD Primary Care Provider [phone] Selvin Landry MD Unavailable [phone] Iain Cohen MD Unavailable [phone] Kandace Marin INDOOR LANDSCAPER/GARDENER Unavailable [phone] Nancy Reyez NP Unavailable Jason Doran MD Primary Care Provider + [phone] Richard Díaz MD Unavailable [phone] Dennis Pisano MD Unavailable [phone] Tre Dash MD Primary Care Provider [phone] Encounter Details Date Type Department Care Team (Late st Contact Info) Description 05/20/2022 Orders Only [facility] [address] [place] [address] Tre Dash MD [address] [place] [address] Social History Tobacco Use Types [...] should administer the PHQ-9) 0 03/26/2022 Comments No Sex and Gender Information Value Date Recorded Sex Assigned at Not on file Legal Sex Female 4:41 PM ENVIRONMENTAL OFFICER Gender Identity Not on file Sexual Orientation Straight 01/20/2019 6: 18 AM CDT documented as of this encounter Plan of Treatment Not on file documented as of this encounter Procedures Procedure Name Priority Date/Time Associated Diagnosis Comments SCAN - RADIOLOGY/IMAGING 05/20/2022 SCAN - LABS 05/20/2022 documented in this encounter Results * SCAN - LABS (05/20/2022) us Tre Dash MD Final Result * SCAN - RADIOLOGY/IMAGING (05/20/2022) Anatomical Region Laterality Modality Other us Tre Dash MD Final Result documented [...] COVID: Suspected 09/01/2022 09/01/2022 09/01/2022 11:19 AM ENVIRONMENTAL OFFICER documented as of this encounter Care Teams Design Painter Relationship Specialty Start Date End Date Tre Dash MD [address] [place] [address] PCP - General Internal Medicine 06/20/21 03/28/23 Jason Doran MD [address] [place] [address] PCP - General Internal Medicine 03/29/23 04/05/23 Tre Dash MD [address] [place] [address] PCP - General Internal Medicine 12/24/23 Anjali Hauser NP [address] [address] Nurse Practitioner Obstetrics and Gynecology 02/21/20 David Sequeira MD [address] [place] [address] Plant Tech Obstetrics and Gynecology 02/20/21 Selvin Landry MD [address] [place] [address] Consulting Physician Gastroenterology 06/13/21 Iain Cohen MD [address] [place] [address] Consulting Physician Obstetrics and Gynecology 11/04/22 Kandace Marin NP [address] [place] [address] Nurse Practitioner Obstetrics and Gynecology 11/30/22 Nancy Reyez NP [address] [place] [address] Nurse Practitioner Obstetrics and Gynecology 11/30/22 Richard Díaz MD [address] [place] [address] Consulting Physician Obstetrics and Gynecology 03/29/23 Dennis Pisano MD [address] [place] [address] [address] [place] [address] Consulting Physician Neurology 04/06/23 documented as of this encounter
--- OUTSIDE RECORDS SUMMARY | 2025-08-08 12:56 | XMS_ITS | Clinical Summary ---
Author Organization [facility] Address [address] [place] [address] Care Team Providers Care Outreach Educator Name Role Phone Anjali Hauser NP Unavailable David Sequeira MD Unavailable [phone] Selvin Landry MD Unavailable [phone] Iain Cohen MD Unavailable [phone] Kandace Marin NP Unavailable [phone] Nancy Reyez NP Unavailable Richard Díaz MD Unavailable [phone] Dennis Pisano MD Unavailable [phone] Lelia Clement MD Primary Care Provider [phone] Allergies Active Allergy Reactions Criticality Noted Date Comments Tioconazole Chest tightness,Othe r (See comments) Medium 08/01/2020 Weakness, achy joints and breast tenderness Weakness, achy joints and breast tenderness Medications buPROPion XL (WELLBUTRIN XL) 150 mg 24 hr tablet Take 1 tablet (150 mg total) by mouth daily 05/07/2025 Active escitalopram (LEXAPRO) 20 mg tablet Take 1 tablet (20 mg total) by mouth daily Active nystatin-triamci nolone creamIndications :cutaneous candidiasis Apply to affect area twice a day for 7-14 days then as needed for rash. 30 g 1 06/07/2025 08/06/20 25 Active Problems Problem Noted Date Diagnosed Date Morbid obesity with BMI of 40.0-44.9, adult 05/23 Assessment & Plan (06/07/2025 2:03 PM CDT): Chronic and Unstable Diagnosis likely 2/2 excess caloric intake in setting of chronicity of disease v antidepressant use History/comorbidity possibly contributing to diagnosis: recently gave in August 2024, breast feeding, antidepressant use Current therapy (ies): none Current weight & BMI: Wt Readings from Last 1 Encounters: 06/07/25 128.4 kg (283 lb) Body mass index is 41.79 kg/m . Obesity class: 2 Wt Readings from Last 3 Encounters: 06/07/25 128.4 kg (283 lb) 12/20/24 112.3 kg (247 lb 9.6 oz) 12/06/24 112.3 kg (247 lb 9.6 oz) Today's plan: Medications: No medications initiated today as patient is breast feeding. Lengthy discussion regarding options. Encourage patient to check with Medicaid office for coverage of medications for weight loss. In the interim, encourage regular exercise, low-fat diet and managing stress. Total time spent on obesity counselin minutes Candidal intertrigo 06/07/2025 Assessment & Plan (06/07/2025 2:04 PM CDT): Acute, unstable Differential ddx: yeast dermatitis v atopic dermatitis v allergic dermatitis Current meds: none Today's Plan: Meds: Nystatin power/cream (patient to choose which she likes better when she applies) Discussed importance of keeping skin clean and dry Recs: shower daily, wash effected areas w/ fragrance free soap, avoid tight clothing and extreme heat as this can cause exacerbation of symptoms OTC recs: antihistamine (Zyrtec, Katelyn, Claritin); would avoid Benadryl as it can cause fatigue Considerable consults: none today Goal: decreased pruritus, improvement of rash Chronic dental pain 02/07/2025 Folliculitis of right axilla 12/06/2024 Assessment & Plan (12/20/2024 10:14 AM CDT): Acute and Unstable Not concerned for lymphadenopathy of axillary at this time Current therapy (ies)/home meds: completed Keflex dosing with minimal improvement Today's plan: Meds: Start doxycycline Monitor for s&s of infection specifically streaking/worsening erythema, fever, increased warmth of site, purulent drainage May use warm compresses Should site not improve w/ antibiotics, consider imaging Consults: dermatology referral placed today for further evaluation and discussion of scarring treatment Goal: healed abscess site without infection, decreased pain Assessment & Plan (12/06/2024 10:36 AM CDT): Acute and Unstable Not concerned for lymphadenopathy of axillary at this time Current therapy (ies)/home meds: none Today's plan: Meds: Start Keflex (coverage for boils as well) Monitor for s&s of infection specifically streaking/worsening erythema, fever, increased warmth of site, purulent drainage May use warm compresses Should site not improve w/ antibiotics, consider imaging Goal: healed abscess site without infection, decreased pain At high risk for caregiver role strain Assessment & Plan (12/20/2024 10:15 AM CDT): Chronic and Unstable Relative history: Primary caregiver of her 3 children, Medicaid, not currently working, boyfriend present Previously on Zoloft, discontinued 'a few weeks ago' Current meds: Venlafaxine ordered by psych yesterday, she has yet to start in fear of side effects Today's Plan: Meds: Start Venlafaxine Follows w/ psych and therapist in [place] Goal: Manageable stress, 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 Assessment & Plan (12/06/2024 10:38 AM CDT): Chronic and Unstable Relative history: Primary caregiver of her 3 children, Medicaid, not currently working, boyfriend present Current meds: Zoloft Today's Plan: Meds: Continue Zoloft Consults: Consider psych or therapy/counseling Goal: Manageable stress, 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 No evidence of external abscess. No lesion. No open wound. No drainage to epidural site. Tenderness with palpation around insertion site. Healed ecchymosis noted. Current meds: OTC Tylenol PRN. Today's Plan: May continue OTC Tylenol PRN. for pain Lab orders: none Imaging orders: none Discussed: Need for imaging to further evaluate Acute midline low back pain without sciatica Assessment & Plan (11/09/2024 1:40 PM CDT): Acute on chronic Differential diagnoses: Chronic low back pain without sciatica v epidural abscess v epidural hemorrhage Hx relative to dx: History of chronic low back pain without sciatica; recent history of epidural anesthesia during childbirth Reports pain at epidural insertion site Relative exam findings today: Please see ROS and physical exam Current meds: OTC Tylenol Follows with Cab Super[employer] Today's Plan: May continue OTC Tylenol Lab orders: none Imaging orders: CT Encourage patient to follow-up with OB Gynecology as scheduled Chronic right-sided low back pain without sciati ca 08/23/2023 Overview (12/24/2023): Formerly acute, treated with improvement in 2020, intermittent and more chronic.pain since then, especially after August 2023. Assessment & Plan (12/25/2023 6:51 PM CDT): She is having intermittent right lower back pain which was recently exacerbated by moving furniture. It is located at the right SI joint. She does not fever or chills. She denies radiation of the pain distally. Exam is negative for localized tenderness or swelling. Right straight leg raise is mildly positive at 180 in the seated position. Strength and reflexes are normal. She is breast-feeding so pharmacologic management is constrained. She has been taking acetaminophen with minimal benefit. Recommended that she optimize dosing to no more than 1000 mg 3 times daily. We ordered physical therapy. She asked about chiropractic treatment which I think would be fine. Follow-up in two weeks to see how she is doing. Assessment & Plan (08/07/2021 4:32 PM SOLAR THERMAL TECHNICIAN): Patient is reporting rt sided mid back pain and numbness in the lower extremities. On exam patient noted to have full ROM and no weakness. She is reporting spasm in the mid-back, offered muscle relaxer patient declined. We will do imaging of the thoracic and lumbar spine to r/o any fracture or misalignment that may be contributing to discomfort. Can consider physical therapy to help with pain. Hydroureter on right 05/25/2023 Overview (06/12/2023): Noted on [facility] at [facility]. Likely due to . Neuralgia and neuritis 03/23/2023 Assessment & Plan (03/23/2023 2:35 PM CDT): Intermittent symptoms associated with migraine headaches, see plan above. Migraine without aura and wi thout status migrainosus, not intractable 05/11/2022 Assessment & Plan (03/23/2023 2:37 PM CDT): Intermittent abnormal migraine symptoms, no acute findings on exam. MRI in March unremarkable. Sees neurologist in 2 weeks. Currently , continue Tylenol as needed. Ice to temples may help also. Stay hydrated. Assessment & Plan (06/05/2022 11:05 AM CDT): Chronic problem, uncontrolled Recent MRI with contrast without abnormality - see chart No acute findings on physical examination Discussed prophylactic migraine medication and anxiety/depression medications with patient - patient states she wants to refrain from taking antidepressants completely; patient also wants to defer starting migraine prophylaxis because she is actively trying to conceive Orders for [employer] STAFF to arrange None at this time Orders for Kush Jaffe to arrange Continue OTC medications as needed for acute migraine/headache Continue seeing chiropractor as desired Practice relaxation techniques Consider massage therapy, acupuncture/acupressure, warm compresses Maintain hydration - at least 64oz of water daily Maintain good sleep hygiene Maintain regular exercise routine Contact office if desiring to start prophylactic migraine medication or anxiety/depression medication Follow up with neurology as scheduled Follow up with Dr. Clement as scheduled or sooner if necessary Assessment & Plan (05/28/2022 10:53 AM CDT): Chronic problem, uncontrolled Patient seen in ER yesterday for complaints of migraine times about 3 days unresponsive to Excedrin, Tylenol, and Nurtec - all labs and imaging negative for acute abnormalities Patient given ketorolac and was discharged home Discussed migraine prophylaxis extensively in office, explained that daily oral medications have to be tried before injectable medications (which patient wants to try) - patient doesn't wish to start any oral migraine prophylaxis medication at this time Discussed anxiety/depression medications extensively in office, explained to patient that uncontrolled anxiety/depression can exacerbate migraines - patient states that she wants to avoid antidepressants completely if at all possible Discussed next steps with patient - patient wishes to get MRI with contrast on 06/01, then follow up in office on 06/03 to discuss results and next steps in managing migraines Patient to continue as needed Excedrin, Tylenol and Nurtec for acute migraine Follow up with Neurology in June as scheduled Follow up on 06/03 as scheduled Assessment & Plan (05/14/2022 9:21 AM CDT): Presents with continued intractable headaches for 2-3 months. Refuses prophylactic treatment due to wanting to get . Has failed on Excedrin, tordol, and now sumatriptan. MRI without contrast on 03/23/22 was unremarkable. Unable to establish with Neuro until June. Did not keep headache diary as instructed. No known triggers. Admits headaches are constant on a daily basis but do not wake her from sleep. C/o URI symptoms since yesterday and chills, afebrile in office. No acute findings on exam. MRI with contrast ordered at visit last 2 weeks ago. Rxd Nurtec as directed, call tomorrow with update. Admits her significant other was placed on Amitriptyline and she is willing to try that if Nurtec doesn't work. Follow up after MRI, sooner if needed. Assessment & Plan (05/11/2022 2:12 PM CDT): Chronic problem, uncontrolled Physical examination continues to be unremarkable without acute/concerning findings Ordered MRI with contrast to assess for vascular/structural etiology of pain - awaiting prior authorization Start sumatriptan as ordered for migraine Reschedule neurology appointment at earliest convenience - will have office staff reach out to Dr. Pisano to help reschedule appointment Practice relaxation techniques to manage anxiety (deep breathing, guided imagery, aromatherapy, etc) Stay hydrated and consume well-balanced diet Practice good sleep hygiene Follow up in 1 month to assess efficacy of current plan or sooner if necessary Recurrent boils 12/05/2021 Assessment & Plan (12/06/2024 10:35 AM CDT): Acute and Unstable Current therapy (ies)/home meds: none Today's plan: Meds: Start Keflex Labs: none Encouraged OTC cocoa butter for scarring Monitor for s&s of infection specifically streaking/worsening erythema, fever, increased warmth of site, purulent drainage Consults: should abscess return or not improve, consult to General Surgery for evaluation and possible surgical excision Goal: healed abscesses, decreased pain Chronic rhinitis 11/27/2021 Overview (12/04/2021): Possibly allergic. Assessment & Plan (03/26/2022 2:58 PM CDT): She is inconsistent in taking her medications. Right now she seems to be fine although sinus allergies might be contributing to her headaches. We will monitor clinically. Palpitations 07/29/2021 Overview (12/28/2021): Negative Holter. Assessment & Plan (03/26/2022 3:04 PM CDT): She continues to complain of intermittent palpitations. Echocardiogram, thyroid hormone level, and a truncated 48 hour Holter were all unremarkable earlier this year. We will order a 30 day event monitor. Assessment & Plan (01/07/2022 5:13 PM CDT): Patient continues to have issues with palpitations. Work up to date has been negative. She has had negative holter and normal echocardiogram. Etiology may be anxiety related. Patient encouraged to avoid excess caffeine, alcohol, exercise and practice meditation. We will do labs today to look for any underlying source at patient request, although previous evaluation negative. Will follow up in [address] Clement or sooner if needed. Assessment & Plan (10/02/2021 10:54 AM SOLAR THERMAL TECHNICIAN): She still has palpitations. She wore a 48 hour Holter monitor, but only for less than 24 hours because she had trouble sleeping with the monitor on, and also had some GI testing during which the monitor was removed. However, the Holter was otherwise normal. We are waiting for an echocardiogram which was originally scheduled for September 10 but was rescheduled due to a conflict with another appointment. She will now get it later this month. We will call her about the results. Assessment & Plan (07/29/2021 9:00 AM SOLAR THERMAL TECHNICIAN): Patient continues to have episodes of palpitations. She has had recent labs that show no electrolyte disturbance, anemia or thyroid dysfunction that could contribute. She wore tele monitor with no arrhythmia. Echo was ordered at that time to r/o LV dysfunction or valvular abnormality. That has yet to be done. We will complete. Patient will continue to decrease stress. Encouraged to exercise, avoid caffeine and alcohol. Will follow up as scheduled or sooner if needed. Vitamin B12 deficiency (dietary) anemia 07/03/20 21 Vitamin D deficiency 07/03/2021 Assessment & Plan (10/11/2021 4:15 PM SOLAR THERMAL TECHNICIAN): She had a slightly low vitamin-D level. B12 was normal but towards the lower end. She did not tolerate a prescribed replacement doses. She says she will start taking a supplement obtained OTC such as a gummy multivitamin. Paresthesias 07/01/2021 Assessment & Plan (07/01/2021 1:34 PM SOLAR THERMAL TECHNICIAN): Patient has reports of bilateral lower and upper extremity paresthesias that come and go. On exam no obvious weakness. Monofilament testing was normal. There is concern that symptoms may be somatization in the setting of grief, stress and anxiety. Patient does vocalize concern and would like to pursue counseling and we will provide resources. We will however, do further lab testing to r/o underlying causes such as electrolyte disturbance, anemia or vitamin deficiency. In October she did have a low normal vitamin B12 and may benefit from therapy. Will await labs to determine if oral or IM therapy needed. Anxiety 03/21/2021 Overview (10/02/2021): Had some counseling, then stopped. Not interested in medications as of 2020. Assessment & Plan (07/01/2021 4:27 PM SOLAR THERMAL TECHNICIAN): Patient has known anxiety and sought out counseling, but stopped after 2 sessions d/t being lost to follow up. Patient was encouraged to resume. We discussed some of her physical symptoms may be secondary to her underlying anxiety and depression. She is uninterested in medication therapy as she does not want foreign substances in her body. We will provide her with list of counseling services and she was encouraged to resume therapy. Assessment & Plan (03/21/2021 11:29 AM CDT): Pt reports that she can now admit that she is anxious. She reports that she felt embarrassed to have anxiety and ask for help. She reports that she does not want to be put on any medications bc she doesn't want anything to alter her personality or affect her being a good mom to her daughter. She wanted to be sure that she didn't have an infection or toxins in her body that were causing her symptoms, but now that she knows everything else is ok, she knows that it is anxiety driven. She has no thoughts of harming herself or anyone else today. After long discussion, pt reports that she ultimately does not want to be put on any medications at this time. For now, she will continue to use Ativan from the ER as needed for up to 3x daily. She would like to seek cognitive behavioral counseling stating that she would like to try this before going a daily medication. We discussed eating a healthy diet, and doing things that she enjoys to keep her mind busy. Encouraged her to find a hobby or simply exercise as that can help as well. Advised to stay away from caffeine or energy drinks as this can exacerbate the anxiety symptoms (increased pulse or shakiness). I will see her back in a few weeks for f/u, and in the interim hopefully she will be able to start counseling. She agrees to this plan. Hepatic steatosis 01/28/2021 Assessment & Plan (07/28/2022 11:55 AM SOLAR THERMAL TECHNICIAN): Diagnosed 08/2021 after elevated ALT. Given RUQ pain will re-check CMP. Follow 1 month as scheduled. Assessment & Plan (03/26/2022 2:58 PM CDT): We recommended attention to her diet and some weight loss. Assessment & Plan (05/19/2021 1:57 PM CDT): She has diffuse fatty liver change. Liver enzymes have been normal. We discussed the nature of the fatty liver and relationship to being overweight. She has lost about 30 lb over the past six months. She is frequently nauseated and has a poor appetite. She will keep her follow ups with GI. Assessment & Plan (02/20/2021 10:57 AM CDT): She has some fatty liver change from obesity. We recommended a weight loss diet. Follow-up in six months. Assessment & Plan (01/30/2021 12:39 PM CDT): - noted on RUQ US - following with GI - has been advised about importance of losing weight Frequent bowel movements 12/26/2020 Overview (08/30/2022): Has a mix of consistencies, no blood. Has rectal urgency after eating. Normal colonoscopy except hemorrhoids, 06/13/2021. Assessment & Plan (02/20/2021 10:58 AM CDT): She has some symptoms that sound like possible irritable bowel. Stools vary in consistency from loose to formed. There is no blood in the stools or cramps. She does get some rectal urgency after eating. She is scheduled for a colonoscopy in March with Dr. Landry. We will see her back here in six months. Epigastric pain 12/26/2020 Overview (08/30/2022): Normal EGD, 06/13/2021. Assessment & Plan (07/28/2022 10:56 AM SOLAR THERMAL TECHNICIAN): Intermittent heartburn. No OTC treatments attempted. No acute findings on exam. Recommended Tums and Pepto OR maalox as needed. Discussed low acid diet: avoid soda, sugar substitutes, vinegar, pickles, citrus, tomatoes, coffee, and alcohol. Stay hydrated. Follow 1 month, sooner if needed. Assessment & Plan (05/19/2021 1:57 PM CDT): The cause of her abdominal symptoms is unclear. She will keep her follow ups with GI. Low serum vitamin B12 10/31/2020 Overview (03/14/2025): Tends to run on the low side of normal. Obesity (BMI 30-39.9) 02/20/2019 Overview (12/28/2021): Started after her daughter was born. Lost some weight, less obese. Assessment & Plan (12/20/2024 10:13 AM CDT): Chronic and Unstable Diagnosis likely 2/2 excess caloric intake in setting of chronicity of disease History/comorbidity possibly contributing to diagnosis: recently gave in August 2024, breast feeding Current therapy (ies): none Current weight & BMI: Wt Readings from Last 1 Encounters: 12/20/24 112.3 kg (247 lb 9.6 oz) Body mass index is 36.54 kg/m . Obesity class: 2 Wt Readings from Last 3 Encounters: 12/20/24 112.3 kg (247 lb 9.6 oz) 12/06/24 112.3 kg (247 lb 9.6 oz) 11/09/24 102.1 kg (225 lb) Today's plan: Medications: No medications initiated today as patient is breast feeding. Lengthy discussion regarding options. Encourage patient to check with Medicaid office for coverage of medications for weight loss. In the interim, encourage regular exercise, low-fat diet and managing stress. Total time spent on obesity counselin minutes Assessment & Plan (12/06/2024 10:33 AM CDT): Chronic and Unstable Diagnosis likely 2/2 excess caloric intake in setting of chronicity of disease History/comorbidity possibly contributing to diagnosis: recently gave in August Current therapy (ies): none Current weight & BMI: Wt Readings from Last 1 Encounters: 12/06/24 112.3 kg (247 lb 9.6 oz) Body mass index is 36.54 kg/m . Obesity class: 2 Wt Readings from Last 3 Encounters: 12/06/24 112.3 kg (247 lb 9.6 oz) 11/09/24 102.1 kg (225 lb) 12/24/23 114.5 kg (252 lb 6.4 oz) Today's plan: Medications: No medications initiated today as patient is breast feeding. Lengthy discussion regarding options. Encourage patient to check with Medicaid office for coverage of medications for weight loss. In the interim, encourage regular exercise, low-fat diet and managing stress. Total time spent on obesity counselin minutes Assessment & Plan (11/09/2024 1:30 PM CDT): # obesity, class 1; BMI: 33.2 Chronic, stable Diagnosis likely 2/2 excess caloric intake v History/comorbidity possibly contributing to diagnosis: Recent Pertinent exam findings: None Current therapy (ies): None Today's plan: Medications: No medications initiated today New lab orders today: Will need annual labs with exam Education provided. Recommendations: diet: recommend heart healthy diet including balanced diet of proteins, green leafy vegetables, moderate carbohydrate and dairy intake and recommend regular exercise. AHA recommends at least 30 minutes daily of elevated heart rate above 130 beats per minute (bpm) Total time spent on obesity counselin minutes Assessment & Plan (03/26/2022 3:03 PM CDT): We encouraged attention to her diet and some weight loss. There is no evidence on imaging or exam of pseudotumor cerebri. Assessment & Plan (02/20/2021 10:58 AM CDT): She is quite obese. We discussed the importance of appropriate diet and hopefully some weight loss. The main strategy would be to restrict calories, especially carbohydrates. We will see her back in six months to see how she is doing. Assessment & Plan (01/30/2021 12:38 PM CDT): Wt Readings from Last 3 Encounters: 01/30/21 113.5 kg (250 lb 3.2 oz) (>99 %, Z= 2.49)* 01/10/21 113.5 kg (250 lb 4.8 oz) (>99 %, Z= 2.49)* 12/29/20 108.9 kg (240 lb) (>99 %, Z= 2.40)* * Growth percentiles are based on CDC (Girls, 2-20 Years) data. Body mass index is 36.93 kg/m . - no weight change noted since last visit - BMI Follow-up includes: nutrition counseling, exercise counseling and education provided Assessment & Plan (01/10/2021 1:04 PM CDT): Wt Readings from Last 3 Encounters: 01/10/21 113.5 kg (250 lb 4.8 oz) (>99 %, Z= 2.49)* 12/29/20 108.9 kg (240 lb) (>99 %, Z= 2.40)* 12/26/20 115.2 kg (254 lb) (>99 %, Z= 2.51)* * Growth percentiles are based on CDC (Girls, 2-20 Years) data. Body mass index is 36.95 kg/m . - no weight loss noted, state she has stable appetite, no dysphagia or swallowing problem - BMI Follow-up includes: nutrition counseling, exercise counseling and education provided - Encouraged to eat a diet richer in fruits/veggies and decrease the intake of sugars and fats. Assessment & Plan (11/01/2020 5:41 AM SOLAR THERMAL TECHNICIAN): Wt Readings from Last 3 Encounters: 10/31/20 114.4 kg (252 lb 3.2 oz) (>99 %, Z= 2.49)* 10/16/20 104.3 kg (230 lb) (99 %, Z= 2.30)* 10/07/20 104.3 kg (230 lb) (99 %, Z= 2.30)* * Growth percentiles are based on CDC (Girls, 2-20 Years) data. Body mass index is 37.23 kg/m . - BMI Follow-up includes: nutrition counseling, exercise counseling and education provided - Encouraged to eat a diet richer in fruits/veggies and decrease the intake of sugars and fats. - offered nutritional counseling, referral placed Persistent mood disorder (CMS/HCC) 02/21/2016 Overview (01/07/2024): Anxiety and depression. Referred by pediatrics for counseling at [facility]. >>OVERVIEW FOR TREASURE (GENERALIZED ANXIETY DISORDER) WRITTEN ON 01/07/2024 7:03 AM BY LLEIA CLEMENT MD Chronic. 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 Therapist: Silvana Current meds: discontinued Zoloft and has prescription for Venlafaxine. Has yet to start; voices concerns about side effects. Today's Plan: Meds: Encouraged patient to start Venlafaxine and f/u with therapist as scheduled (2 weeks) Established w/ psych Addressed PHQ results Discussed potential side effects of Effexor and benefits/risks, verbalized understanding. Goal: improved mood Assessment & Plan (01/07/2024 7:04 AM CDT): >>ASSESSMENT AND PLAN FOR TREASURE (GENERALIZED ANXIETY DISORDER) WRITTEN ON 01/10/2021 1:01 PM BY JEAN DAWSON MD - ongoing problem - currently not on medication, in the past did not want to be on medications - open to medications at this time, has noticed irritability as well - we discussed some options, she will look into medications and let me know which ones to try at this time Assessment & Plan (01/07/2024 7:04 AM CDT): >>ASSESSMENT AND PLAN FOR TREASURE (GENERALIZED ANXIETY DISORDER) WRITTEN ON 01/30/2021 12:44 PM BY JEAN DAWSON MD - ongoing problem, [facility] - would benefit with counseling provided patient list of counselors - currently not on medication, in the past did not want to be on medications, still contemplating at this time, wants a list of medications so she can read about which has been provided to her Assessment & Plan (01/07/2024 7:04 AM CDT): >>ASSESSMENT AND PLAN FOR TREASURE (GENERALIZED ANXIETY DISORDER) WRITTEN ON 04/02/2021 1:15 PM BY MELBA SAMUEL NP PT reports that her anxiety has gotten much better within the last 2 weeks. She reports that she feels better physically and that she feels that she can do normal things again, for example she states that she was able to clean her house today for the first time since her brother . She has not used the ativan in over a week now. She has plans to see counselor Erica Apodaca at [facility] on 04/15/21. She can f/u with Dr. Lelia THURSTON and has f/u appt with him on 08/28/21. Assessment & Plan (01/07/2024 7:04 AM CDT): >>ASSESSMENT AND PLAN FOR TREASURE (GENERALIZED ANXIETY DISORDER) WRITTEN ON 05/19/2021 1:58 PM BY LELIA CLEMENT MD Her brother committed suicide in February. This has been very hard on her. She denies feeling depressed. She may be somatisizing some of her feelings. We will continue supportive care. Assessment & Plan (01/07/2024 7:04 AM CDT): >>ASSESSMENT AND PLAN FOR TREASURE (GENERALIZED ANXIETY DISORDER) WRITTEN ON 05/28/2022 10:58 AM BY SHAILA MUNROE NP Chronic problem, uncontrolled Patient reports that she has a lot of anxiety with some intermittent depression - during acute anxiety attacks, patient reports palpitations and worse migraine Discussed the relationship between uncontrolled anxiety/depression and uncontrolled migraines Discussed potential need for anxiety/depression medication to control mood - patient states that she wants to completely avoid antidepressants if at all possible Patient declines as needed medications Patient spoke with a couple counselors in the past but didn't like it, so hasn't gone back, but reports that she speaks with friends/family as needed Patient encouraged to use relaxation techniques as needed to manage anxiety Follow up as scheduled for 06/03 or sooner if necessary to discuss MRI results and next steps in managing migraines Assessment & Plan (03/26/2022 3:03 PM CDT): She has had problems with depression and anxiety at times, but says mostly anxiety more recently. Mood problems could be contributing to her headache. Assessment & Plan (09/17/2021 12:53 PM SOLAR THERMAL TECHNICIAN): She seems to be doing a little better with regard to her mood. She has a follow up for routine visit in 2 weeks. Assessment & Plan (08/07/2021 4:31 PM SOLAR THERMAL TECHNICIAN): Patient has persistent untreated mood disorder. She has at each visit been referred for counseling which she has yet to begin. She reports she has been unable to find someone available to see her. She is opposed to medication therapy as fearful of possible side effects. It was once again reinforced at visit today that physical symptoms may be related to her underlying mood disorder. Assessment & Plan (07/29/2021 9:01 AM SOLAR THERMAL TECHNICIAN): Patient has continued struggles with her anxiety and depression. She has yet to begin counseling and does not wish to take medication. She has had major life stressors of having a child at a young age and her brother committing suicide. There is concern that these issues are contributing to some of her physical manifestations. This was discussed with patient and we will once again provide her with a list of counseling services in the area. She will follow up in August as scheduled or sooner if needed. Assessment & Plan (01/07/2024 7:04 AM CDT): >>ASSESSMENT AND PLAN FOR PERSISTENT MOOD DISORDER (CMS/HCC) (HCC) WRITTEN ON 02/20/2021 10:56 AM BY LELIA CLEMENT MD She has had mood issues since she was a teenager, mostly anxiety. She was referred for counseling to [facility], but does not remember ever being in counseling or taking a medication. Currently she seems to be doing okay so we will monitor clinically with supportive care. >>ASSESSMENT AND PLAN FOR TREASURE (GENERALIZED ANXIETY DISORDER) WRITTEN ON 02/20/2021 10:57 AM BY LELIA CLEMENT MD She has problems with anxiety. It is a generalized anxiety, nothing specific like a phobia. She has never taken a medication for it and does not want to start now. Her insurance does not pay for counseling she says. We will monitor clinically and with supportive care. Assessment & Plan (07/16/2020 10:23 AM SOLAR THERMAL TECHNICIAN): - patient has noticed some depressed mood. She is agreeable to getting some counseling at [facility] which I will put in the referral. She denies any suicidal homicidal ideations. Resolved Problems Problem Noted Date Diagnosed Date Resolved Date Urinary frequency 12/24/2023 12/05/2024 Assessment & Plan (12/25/2023 6:52 PM CDT): She was concerned that her current right lower back/sacroiliac pain could be due to a urine infection, but this seems unlikely. She is not running a fever or having chills. Her only urinary symptom is some frequency. We did order a urinalysis with microscopic and reflex culture as well as a urine test. Depending on the results, additional evaluation and treatment may be needed. Nasopharyngitis acute 09/01/20222022 Assessment & Plan (09/01/2022 3:16 PM SOLAR THERMAL TECHNICIAN): URI symptoms for 10 days. Tested negative for COVID and FLU in office today. No acute findings on exam other than Clear PND. Likely viral. Rxd Cetirizine and Flonase as directed. Use OTC meds as needed for cough. Tylenol/Ibuprofen as needed for pain. Increase fluids (water) Cool mist humidifier at night Use sinus rinses to help flush bacteria and help with congestion. Encouraged honey, marshmallows, or chloraseptic to help coat throat. Call with any worsening or persistent symptoms. Neck pain, musculoskeletal 05/28/2022 0 03/23/2023 Assessment & Plan (05/28/2022 10:41 AM CDT): Chronic problem No acute findings on physical examination Patient reports chronic, intermittent tight muscles - uses massage occasionally to help Suspect this is related to uncontrolled anxiety - recommended relaxation techniques, regular massage, heat, stretching Patient declined as needed muscle relaxer due to concerns about side effects Patient requesting PT referral - referral sent COVID-19 05/19/2022 06/12/2022 Assessment & Plan (05/19/2022 11:42 AM CDT): Acute problem, tested positive on 05/14 at ER At ER was offered Paxlovid - patient declined, still declines today in office Physical examination significant for mild pharyngeal erythema, postnasal drip, nasal congestion, rhinorrhea, and cough - no other acute findings on examination Patient reassured in office that her infection seems very mild based on physical examination and that further testing not required at this moment Patient also reassured that most viral infections, including COVID 19, resolve within 10-14 days with symptomatic treatment - although, some patients who contract COVID 19 develop long-term symptoms Continue Tylenol as needed for body aches/headaches Continue Flonase nasal spray to help with inflammation and drainage Can take OTC allergy medications (antihistamines) as needed for nasal congestion/postnasal drip Stay hydrated Eat well-balanced diet Rest as needed Continue wearing mask in public for another 4-5 days but can progress to normal activity as tolerated Follow up as needed for any concerns Allergic rhinitis 05/14/2022 12/05/2024 Assessment & Plan (05/14/2022 9:23 AM CDT): Presents with headache, chills, runny/stuffy nose, dry cough since yesterday. afebril in office today. No acute exam findings. Likely rhinitis, Rxd Flonase as directed. Use OTC meds as needed for cough. Discussed antihistamine use (zyrtec/katelyn) to help dry up mucous. Tylenol/Ibuprofen as needed for pain. Increase fluids (water) Cool mist humidifier at night Use sinus rinses to help flush bacteria and help with congestion. Encouraged honey, marshmallows, or chloraseptic to help coat throat. Call with any worsening or persistent symptoms. Embedded teeth with impacted teeth 03/02/2022 05/14/2022 Cough 01/07/2022 05/14/2022 Assessment & Plan (01/07/2022 5:15 PM CDT): Patient reports persistent cough and chest congestion x 2 months. She has been seen multiple times in the last 2 months for similar symptoms. She has been prescribed antibiotic which she did not complete d/t yeast infection. She also did not do rhinitis care as directed. On exam lungs clear and oxygen saturation is normal. She does have some post nasal drip that is most likely contributing. Patient reports cough worse at night. We will do CXR today to r/o any acute cardiopulmonary process. Have encouraged rhinitis care as outlined in AVS. She will follow up in 4 weeks or sooner if needed. Viral URI with cough 12/10/2021 023 Overview (08/30/2022): Symptoms managed, see office note, RUPALI Cates. Assessment & Plan (07/01/2022 9:42 PM SOLAR THERMAL TECHNICIAN): body aches, headaches, runny nose, productive cough with yellow sputum, and nausea for 1 week. Was exposed to RSV through her daughter. No acute findings on exam. Likely viral illness. Rxd Zyrtec and Robitussin as directed. Encouraged Flonase use. Tylenol/Ibuprofen as needed for pain. Increase fluids (water) Cool mist humidifier at night Use sinus rinses to help flush bacteria and help with congestion. Encouraged honey, marshmallows, or chloraseptic to help coat throat. Call with any worsening or persistent symptoms. Keep follow with Dr. clement as scheduled in 1 month. Assessment & Plan (12/10/2021 2:46 PM CDT): The patient returns today with congestion and cough that is worse at night. She was recently treated for a upper respiratory infection and only completed 5 days of the antibiotic. She states that it gave her a yeast infection. Today on exam there were no acute findings of bacterial infection, most likely viral in nature. She was tested for both Flu and COVID today that were negative. The patient was advised to continue the use of Mucinex, Robitussin, Flonase, and push her fluid intake. She can also use a cool mist vaporizer in her room and elevate her head of bed to help decrease the increased cough and congestion at night. The patient will call if her symptoms do not improve or get worse. Contraceptive management 12/05/2021 Assessment & Plan (12/05/2021 1:17 PM CDT): Discussion/counseling on all contraception options available to patient, including risks, benefits, and side effects of each. Patient would like to re-start a combined oral contraceptive pill for her BCM. We discussed different options for pills, including pills known to help acne prone skin. Will try Sprintec/ortho cyclen to see if this helps with skin as well as providing contraception. Usage instructions given. BUM x 1 month. Acute bacterial sinusitis 11/17/2021 Overview (03/25/2022): Treated with antibiotics. Covid and Flu negative, RUPALI Lechuga. Assessment & Plan (11/17/2021 10:48 AM CDT): Patient presents with cough, congestion, sore throat and headaches x 1 week. She has previously been tested for covid, flu and strep which were negative, testing again today negative. Symptoms and exam findings suggestive of acute sinusitis. Will begin antibiotic treatment along with symptom management as outlined in the AVS. She will call or return should symptoms worsen or persist. Dizziness 09/16/2021 12/28/2021 Overview (12/28/2021): BPPV or labyrinthitis, responded well to meclizine. Assessment & Plan (09/17/2021 12:57 PM SOLAR THERMAL TECHNICIAN): She was in the ER recently with vertigo, probably BPPV or labyrinthitis. Symptoms were preceded by some right ear pain which has since resolved. The vertigo responded readily to meclizine and ondansetron. We will monitor clinically. Flu 08/20/2021 10/02/2021 Overview (10/02/2021): Influenza A, Tamiflu Rx but not covered by insurance. Recovered. Assessment & Plan (09/17/2021 12:55 PM SOLAR THERMAL TECHNICIAN): She had influenza A recently. She was not vaccinated. I called in Tamiflu, but it was not covered by her insurance so she did not take it. She recovered and has no residual symptoms. I recommended that she get the flu shot, but she declines. UTI symptoms 08/07/2021 12/28/2021 Overview (12/28/2021): Saw RUPALI Lechuga, urinalysis unremarkable, referred to [employer]IOR [employer] SOFTWARE [employer]ELOPER. Assessment & Plan (08/07/2021 4:36 PM SOLAR THERMAL TECHNICIAN): Patient has persistent recurrent urinary symptoms. Repeat UAs however, have been insignificant. Patient reports however, she feels trouble with urination and dysuria. Offered STD testing, but patient states she is up to date. Recommended she contact SENIOR [employer] SOFTWARE DEVELOPER and will refer to urology for further evaluation. Viral illness 08/07/2021 12/28/2021 Overview (11/14/2021): Sore throat, postnasal drainage and cough in July 2021 and October 2021. COVID, flu and strep test negative. Assessment & Plan (08/07/2021 4:34 PM SOLAR THERMAL TECHNICIAN): Patient presents with sore throat, cough and post nasal drip. She states she was tested for covid 19 at work last night and it was negative. She states today that her symptoms have improved. Most likely viral in nature. Patient however, is requesting CBC and she is fearful or recurrent sepsis we will repeat. Symptom management encouraged. Chest pain in adult 08/07/2021 12/06/19 25 Overview (12/28/2021): Intermittent, probably GI origin. Assessment & Plan (10/02/2021 10:55 AM SOLAR THERMAL TECHNICIAN): She continues to have intermittent chest pains which are felt to be noncardiac in origin, possibly due to a GI cause although GI workup as also been negative. We will monitor clinically. Assessment & Plan (08/07/2021 4:38 PM SOLAR THERMAL TECHNICIAN): Patient seen in the ER recently with c/o chest pain, felt to be secondary to anxiety. Her cardiac w/u was negative. Echocardiogram is pending to look for any LV dysfunction or WMA, awaiting approval from insurance. She can continue with tylenol or ibuprofen for pain. Further recommendations pending results of echo. Dysuria 07/29/2021 12/28/2021 Overview (12/28/2021): Urinalysis negative. Assessment & Plan (07/29/2021 8:54 AM SOLAR THERMAL TECHNICIAN): Patient has reports of dysuria and urinary frequency. On exam no suprapubic tenderness or CVA tenderness. We will do UA to look for any signs of UTI. If no signs of infection can refer to SENIOR C SOFTWARE DEVELOPER for further evaluation. Weight loss 07/03/2021 01/07/2024 Overview (01/07/2024): Details lacking. Grief 07/03/2021 06/12/2022 Abdominal pain 07/01/2021 07/28/2022 Assessment & Plan (10/02/2021 10:56 AM SOLAR THERMAL TECHNICIAN): She continues to have diffuse abdominal pain and tenderness without identified pathology. She follows up with GI in a week or two. I suggested a trial of nortriptyline for functional abdominal pain, but she wants to wait until she sees GI before committing to any medications. She tends to be sensitive to medications. Assessment & Plan (07/01/2021 2:10 PM SOLAR THERMAL TECHNICIAN): Patient has continued reports of RUQ and mid-epigastric tenderness. She also continues to report concerns over her weight. Of note however, weight has been stable over her last 3 visits. She also made lifestyle changes such as stopping soda and high fat foods that have contributed to her weight loss. We discussed a 25lb weight loss over 6 months with these changes is reasonable. Patient had colonoscopy recently that was normal. She will follow up with GI as scheduled for further recommendations. Labs will be done today to look for any underlying source of pain. Will follow up as scheduled or sooner if needed. Intractable headache 05/14/2021 023 Overview (05/19/2021): Started about 2 days after the onset of pain and tingling in her extremities, all on the right side. Associated with N/V, responded to Tylenol. Has had 2 headaches in the past week, most recently yesterday. Assessment & Plan (04/30/2022 8:49 AM CDT): Presents with persistent tension-type headaches on a daily basis for approximately 2 months. Admits the last 2 days it feels as though her scalp is on fire. Neuro exam intact, no acute exam findings. Has appointment with Neurology scheduled in 2 weeks. Continue Excedrin as needed. Attempt to avoid headaches trigger and anxiety. Ice packs to temples may help. Follow up with Dr. clement after Neuro visit. Call with any changes or concerns. Assessment & Plan (04/07/2022 9:24 AM CDT): In the past she has had headaches off and on, mostly around her menstrual cycle. She says she has had a continuous bad headache now since February 17. She says it is like a watermelon with elastic cords wrapped around it. It is global. She has associated nausea. Sometimes there is a throbbing component. She denies visual scotoma. The headache is severe, but she seems to be able to function. She watches small children. She says she is sleeping well. She is not running a fever. Exam and imaging and labs are all fairly unremarkable. MRI done earlier this week did show some nonspecific white matter abnormalities which could be seen in a patient with migraine. Medications have been unhelpful or have had side effects, or she has not taken them because she is concerned about possible side effects. She says last two days she has had some relief from her headaches for up to several hours at a time. The cause of the patient's headaches is unclear at this time. It sounds like a mixed headache syndrome with tension and possibly allergies contributing, possibly also a migraine component. Since she is intolerant of or has failed several different therapeutic trials, we are not starting anything new, especially since she has had some headache relief the last two days. She is scheduled to see Dr. Pisano in the neurology office in about a month. We will see her back after that to see how she is doing. Assessment & Plan (03/16/2022 4:15 PM CDT): Patient has persistent headache that has been ongoing on and off for several weeks. She has tried NSAIDs and esgic with no relief. She attempted rhinitis care as concern that it was contributing. She has also had CT of her head to r/o any acute infarct or mass which was negative. Etiology remains unclear. She has no associated visual changes, photosensitivity or sound sensitivity. She has been referred to neuro for further evaluation. Given the daily persistent nature of headaches she is a good candidate for daily preventative therapy will begin elavil nightly as discussed with Dr. Clement. We will also do MRI with contrast to look for any further mass or aneurysm that may be present. Assessment & Plan (02/24/2022 4:53 PM CDT): Patient reports having headache that starts at the neck on the rt side and wraps around to the frontal region. Headache is associated with nausea and some visual changes. She states headache ongoing x 6 days. She has tried some flonase, zyrtec and naprosyn without relief. She has not taken any of these treatments consistently. She has been to the ER over the weekend for these symptoms. Labs and CT in the ER negative. Covid testing also negative. Etiology unclear but most likely a tension type vs migraine type headache. Have encouraged patient to take Esgic as prescribed in the ER to see if it will help with cessation of headache. She was also encouraged to continue rhinitis care. Encouraged visit with her opthalmopathy as well. She will call tomorrow with an update or return to ER with worsening or persistent symptoms. Tingling in extremities 05/12/202111/21 Overview (05/19/2021): Left foot and calf, and right hand and a couple of the fingers and palm, and radiates proximally. No weakness. It is a consistent feeling like the limb is asleep, but associated with intermittent 6/10 achy pain in the leg and 2/10 pain in the hand and arm. The pain seems to happen more at night, but the tingling is there all the time. Assessment & Plan (06/01/2021 4:25 PM CDT): For the past week or so, she has had more or less continuous tingling in the right hand and forearm, and left foot and posterior calf. She also notes intermittent 2/10 pain in the right hand and arm, and 6/10 pain in the left foot and calf. She recalls no injury. There is no swelling. She is not running a fever. The pain is described as aching in character. She is worried about a blood clot in her leg. There is no history of recent injury, or long car/airplane trips. She thinks her maternal grandmother had a blood clot, otherwise no known family history of clotting disorders. Exam is normal with respect to neurological and vascular function except for an absent right posterior tibial pulse, likely present but difficult to palpate in this young woman with a relatively low normal blood pressure. Perfusion in both feet is normal. The cause of the patient's symptoms is unclear. She has had a couple of right- sided headaches recently but they responded readily to Tylenol. She had a minor head injury several months ago, and a plain CT of the head was normal at that time. She had a low normal B12 level in the recent past. TSH was normal. We advised she start a multivitamin supplement. We will monitor clinically. If symptoms do not resolve she should follow-up early for re-evaluation and additional testing, possibly referral. Due to aching discomfort in her left calf, we will order a venous Doppler of the left leg. Bad taste in mouth 04/17/2021 Shakiness 04/07/2021 01/07/2024 Overview (01/07/2024): Saw RUPALI Henderson, extensive workup ordered. Assessment & Plan (04/07/2021 4:35 PM CDT): Patient is reporting that she has been experiencing feelings of being shaky that is occurring daily. She states this feels internal and different than her typical anxiety. Patient has had extensive w/u to date that has been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
--- OUTSIDE RECORDS SUMMARY | 2025-08-08 12:56 | XMS_ITS | Clinical Summary ---
Author Organization [facility] Address [address] [place] [address] Care Team Providers Care Computed Tomography Technologist Name Role Phone No, Pcp LITHOGRAPHIC ARTIST Primary Care Provider Unavailabl e Social History Tobacco Use Types Packs/Day Years Used Date Smoking Tobacco: Never Assessed Comments Unknown Sex and Gender Information Value Date Recorded Sex Assigned at Not on file Legal Sex Female 8:01 AM EDT Gender Identity Not on file Sexual Orientation Not on file Plan of Treatment Not on file Medical Devices Not on file Care Teams Computed Tomography Technologist Relationship Specialty Start Date End Date No, Pcp, LITHOGRAPHIC ARTIST N/A Do not use PCP - General Family Medicine 07/03/20
--- OUTSIDE RECORDS SUMMARY | 2025-08-08 12:57 | XMS_ITS | Continuity of Care Document ---
Author Organization [facility], Main Office Address [address] [place] [address] Assessment Encounter Date Assessment Date Assessment LastModified by Organization Details LastModified Time 06/18/2025 06/18/2025 Labs and Imaging Laboratory Tests (April 2025) CBC results were normal with no evidence of anemia. Potassium was slightly low at 3.4 (normal range starts at 3.5), but not clinically significant. No thyroid tests were performed. Visit Summary A 24-year-old female with a history of depression and anxiety presented for follow-up. She reported running out of Wellbutrin 2-3 days ago while continuing Lexapro. She expressed desire to discontinue all medications due to concerns about weight gain, which she attributes to Lexapro. She reports feeling irritable and extremely fatigued despite sleeping all the time. She notes improvement in feelings of worthlessness and is feeling more hopeful. She denies suicidal/homicid al ideation and hallucinations. Current medications include Lexapro (which she wants to discontinue) and Wellbutrin (which she ran out of 2-3 days ago). She reports not taking prescribed Buspar. Recent labs showed slightly low potassium (3.4) but were otherwise normal. The treatment plan includes weaning off Lexapro by reducing to half dose (10mg) for two weeks, then possibly alternating days before discontinuing. Wellbutrin and Buspar will be discontinued. New lab orders for thyroid function and vitamin D were placed with [facility]. A follow-up telehealth appointment was scheduled for July 02, 2025, at 2:30 PM to assess her status after medication changes. Standardized Scales: PHQ9=2 GAD7=6 EPDS=7 Not available 06/18/2025 10:25:56 Plan of Treatment Reminders Order Date Submit Date Provider Last Modified By Organization Details Last Modified Time Details Appointments None recorded. Lab vitamin B12, serum [address] (Lab), [address] [place], [address], 5 10:14:11 vitamin D, 25-hydrox y, total, serum [address] (Lab), [address] [place], [address], 5 10:14:11 TSH + free T4, serum [address] (Lab), [address] [facility], [place], [address], 5 10:14:11 T3, free, serum or plasma [address] (Lab), [address] [place], [address], 5 10:14:11 Referral None recorded. Procedures None recorded. Surgeries None recorded. Imaging None recorded. Medication Orders None recorded. Patient TargetsNo targets recorded. Patient InstructionsNo instructions recorded. Reason for Referral None Reported. Problems Name Problem SNOMED Code Status Onset Date Resolution Date Notes Provider Name and Address Organization Details Recorded Time Insomnia 999560852 Active 2023 Jenny Barnes CNM, [facility] [address], [place], [address], [facility] 4 12:14:50 depression 73774852 Active 2023 Jenny Barnes CNM, [facility] [address], [place], [address], [facility] 5 11:39:17 Generalize d anxiety disorder 84447112 Active 2023 Galilea Desai null, [facility] 14:20:49 Anxiety 62764724 Active 2023 Jenny Barnes CNM, [facility] [address], [place], [address], [facility] 4 17:10:53 depression [id number] 09 Active 2023 Jenny Barnes CNM, [facility] [address], [place], [address], [facility] 4 17:14:55 Anxiety in [id number] 09 Active 2023 Jenny Barnes CNM, [facility] [address], [place], [address], [facility] 4 15:14:08 anxiety Active 2024 Jenny Barnes CNM, [facility] [address], [place], [address], [facility] 5 12:59:59 Feeling irritable 78005244 Active 2024 Jenny Barnes CNM, [facility] [address], [place], [address], [facility] 5 13:27:38 Fatigue 59588550 Active 2024 Jenny Barnes CNM, [facility] [address], [place], [address], [facility] 5 13:29:55 Moderate recurrent major depression 74551548 Active 2024 Galilea Desai null, [facility] 14:22:59 Irritabili ty and anger 698235367 Active 2024 Jenny Barnes CNM, [facility] [address], [place], [address], [facility] 10:26:20 Suicidal thoughts 5704270 Active 2024 Jenny Barnes CNM, [facility] [address], [place], [address], [facility] 15:57:27 Problem Notes None recorded. Procedures Surgical History Date Name Laterality Status Provider Name and Address Organization Details Recorded Time 10/29/19 24 Date of Last Pap Smear completed Jenny Barnes CNM, [facility] [address], [place], [address], [facility] 12/21/2023 11:14:28 tonsillectomy completed Jenny Barnes CNM, [facility] [address], [place], [address], [facility] 12/21/2023 11:18:21 Imaging Results None recorded. Procedure Notes None recorded. Medical Equipment None Reported. Allergies Allergen ID Allergen Name Allergen Category Reaction Reaction Severity Criticality Documentation Date Start Date Code Code System Note Provider Name and Address Organization Details Recorded Time 3163 tioconazo le medicatio n other Not available high 06/18/20252019 10654 RxNorm Weakn ess, achy joint s and breas t tende rness Weakn ess, achy joint s and breas t tende rness unrec ogniz ed react ion (text : Chest tight ness, code: 38983 001) (from exter nal sour e) Not Available [employer] - Contacts+ 5 04:09:26 3164 miconazol e nitrate medicatio n Not available Not available Not available 06/18/2025 04637 RxNorm Not Available [employer] - Contacts+ 04:09:28 Medications Name Sig Start Date Stop Date Status Note LastModified by Organization Details LastModified Time fluoxetine 40 mg capsule Take 1 capsule every day by oral route. active Not Available Not Available No t Available amoxicillin 500 mg capsule 06/28 completed Not Available Not Available Not Available dicloxacill in 500 mg capsule TAKE 1 CAPSULE BY MOUTH EVERY 6 HOURS FOR 10 DAYS DIRECTED active Not Available Not Available No t Available buspirone 5 mg tablet take 1 tablet twice a day by oral route and may need to take 1 mid-day if needed 2024 active Not Available Not Available Not Avai lable venlafaxine ER 37.5 mg capsule,ext ended release 24 hr Take 1 capsule every day by oral route. 2024 active Not Available Not Available Not Avai lable acetaminoph en 325 mg tablet active Not Available Not Available Not Available doxycycline hyclate 100 mg capsule TAKE 1 CAPSULE BY MOUTH TWICE DAILY FOR 10 DAYS active Not Available Not Available No t Available ofloxacin 0.3 % eye drops active Not Available Not Available Not Available fluconazole 150 mg tablet TAKE 1 TABLET BY MOUTH NOW active Not Available Not Available No t Available ampicillin 500 mg capsule TAKE ONE CAPSULE BY MOUTH THREE TIMES DAILY FOR 7 DAYS 06/28 completed Not Available Not Available Not Available ondansetron HCl 4 mg tablet TAKE 1 TABLET BY MOUTH EVERY DAY DIRECTED active Not Available Not Available No t Available sertraline 100 mg tablet TAKE 1 TABLET BY MOUTH ONCE DAILY 06/14 completed Not Available Not Available Not Available penicillin V potassium 500 mg tablet TAKE 1 TABLET BY MOUTH THREE TIMES DAILY FOR 10 DAYS active Not Available Not Available No t Available butalbital- acetaminoph en-caffeine 50 mg-325 mg-40 mg tablet active Not Available Not Available Not Available ketorolac 10 mg tablet TAKE 1 TABLET BY MOUTH FOUR TIMES DAILY FOR 5 DAYS. NO OTHER NSAIDS WHILE TAKING active Not Available Not Available No t Available amoxicillin 875 mg tablet TAKE 1 TABLET BY MOUTH TWICE DAILY FOR 7 DAYS 02/28 completed Not Available Not Available Not Available Zoloft 50 mg tablet Take 1 tablet every day by oral route. 2024 active Not Available Not Available Not Avai labbryan OneTouch Ultra Test strips USE 1 STRIP TO CHECK GLUCOSE 4 TIMES DAILY active Not Available Not Available No t Available doxycycline monohydrate 100 mg capsule active Not Available Not Available Not Available cephalexin 500 mg capsule TAKE 1 CAPSULE BY MOUTH TWICE DAILY FOR 7 DAYS 02/28 completed Not Available Not Available Not Available triamcinolo ne acetonide 0.1 % topical ointment APPLY THIN LAYER TOPICALLY TO THE AFFECTED AREA TWICE DAILY active Not Available Not Available No t Available nystatin 100,000 unit/gram topical cream APPLY TOPICALLY TO THE AFFECTED AREA TWICE DAILY active Not Available Not Available No t Available buspirone 10 mg tablet TAKE 1 TABLET BY MOUTH TWICE DAILY 02/28 completed Not Available Not Available Not Available hydroxyzine HCl 25 mg tablet TAKE 1 TABLET BY MOUTH ONCE DAILY AT BEDTIME active Not Available Not Available No t Available ergocalcife rol (vitamin D2) 1,250 mcg (50,000 unit) capsule TAKE 1 CAPSULE BY MOUTH EVERY WEEK FOR 12 WEEKS active Not Available Not Available No t Available nystatin 100,000 unit/gram topical powder APPLY POWDER TOPICALLY TO AFFECTED AREA TWICE DAILY FOR 7 DAYS USE FOR 2 DAYS AFTER RASH IS RESOLVED. active Not Available Not Available No t Available ibuprofen 600 mg tablet TAKE 1 TABLET BY MOUTH THREE TIMES DAILY active Not Available Not Available No t Available ondansetron 4 mg disintegrat ing tablet DISSOLVE 1 TABLET IN MOUTH EVERY 4 TO 6 HOURS NEEDED active Not Available Not Available No t Available fluoxetine 20 mg capsule TAKE 1 CAPSULE BY MOUTH ONCE DAILY active Not Available Not Available No t Available amoxicillin 875 mg-potassiu m clavulanate 125 mg tablet TAKE 1 TABLET BY MOUTH EVERY 12 HOURS FOR 10 DAYS 06/28 completed Not Available Not Available Not Available buspirone 15 mg tablet Take 1 tablet 3 times a day by oral route. 02/28 completed Not Available Not Available Not Available azithromyci n 500 mg tablet TAKE 2 TABLETS BY MOUTH A ONE TIME DOSE 06/28 completed Not Available Not Available Not Available escitalopra m 20 mg tablet TAKE 1 TABLET BY MOUTH EVERY DAY active Not Available Not Available No t Available Lexapro 10 mg tablet Take 1 tablet every day by oral route. 2024 active Not Available Not Available Not Avai lable Wellbutrin XL 150 mg 24 hr tablet, extended release Take 1 tablet(s) every day by oral route. 2024 active Not Available Not Available Not Avai lable nitrofurant oin monohydrate /macrocryst als 100 mg capsule TAKE 1 CAPSULE BY MOUTH EVERY 12 HOURS FOR 7 DAYS active Not Available Not Available No t Available duloxetine 30 mg capsule,del ayed release Take 1 capsule every day by oral route. active Not Available Not Available No t Available chlorhexidi ne gluconate 0.12 % mouthwash RINSE AND GARGLE 15 ML BY MOUTH TWICE DAILY active Not Available Not Available No t Available PNV 30-iron-fol ic acid-omega- 3 active Not Available Not Available Not Available Pristiq 25 mg tablet,exte nded release Take 1 tablet every day by oral route. 2024 active Not Available Not Available Not Avai lable OneTouch Ultra2 Meter USE TO TEST BLOOD GLUCOSE FOUR TIMES DAILY active Not Available Not Available No t Available OneTouch Delica Plus Lancet 33 gauge USE 1 LANCET TO CHECK GLUCOSE 4 TIMES DAILY active Not Available Not Available No t Available Vitals None Recorded Social History Question Answer Notes LastModified by Organizat [employer] Details LastModified Time Tobacco Smoking Status Never Smoker Jenny Barnes, CNM, [facility] [address] [place], [address], [facility] 12/21/2023 11:16:49 How Many Times Per Week Do You Exercise? 3-4 Times Per Week Information not available 12/21/2023 Are There Any Guns Present In Your Home? No Information not available 12/21/2023 Do You Feel Safe In Your Home? Yes Information not available 12/21/2023 Do You Want To Talk About Contraception Or Prevention During Your Visit Today? No - I Do Not Want To Talk About Contraception Today Because I Am Here For Something Else Information not available 12/21/2023 Do You Have Any Future Plans To Get ? No, I Don't Want To Become Information not available 12/21/2023 Sex: Unknown Functional Status Question Answer Note LastModified by Organizat ion Details LastModified Time Do you use any illicit or recreational drugs? No [email or web address] Information not available 12/21/2023 What is your level of alcohol consumption? None [email or web address] Information not available 12/21/2023 What is your exercise level? Occasional Information not available 12/21/2023 Mental Status Question Answer Note LastModified by Organization D etails LastModified Time Do you feel stressed (tense, restless, nervous, or anxious, or unable to sleep at night)? [id number] [email or web address] Information not available 12/21/2023 Family History Nothing Reported. Medical History Condition Response Anxiety Disorder Y Headaches Y Depression Y Depression/ depression Y Gynecological History Statement/Question Response Abnormal Pap N Flow Moderate Date of LMP 12/05/2023 STIs/STDs N HPV Vaccine Y Duration of Flow (days) 6 Current Control Method None Age at Menarche 13 Sexually Active? Y Date of Last Pap Smear 10/29/2023 Sexual Problems? N LMP Approximate Obstetrics History GPAL:G 2 P 2 0 0 0 Type Value Full Term 2 Total 2 Past Encounters Encounter ID Performer Location Encounter Start Date Encounter Closed Date Diagnosis/Indication Diagnosis SNOMED-CT Code Diagnosis ICD10 Code Diagnosis IMO Codes Diagnosis Note [id number] Jenny Barnes CNM, PM[facility]NP-BC Main Office [address] [place] [address] 05/21/2025 10:03:19 05/22/2025 16:38:01 depression 73265994 F53.0 [id number] Kush reports feeling okay but stressed due to her son's illness. She reports improvemen t in feelings of worthlessn ess and hopelessne ss. We discussed medication management , including her hesitation to start BuSpar and her fear of taking Wellbutrin . I explained the plan to continue Wellbutrin and Lexapro, start BuSpar, and then work on discontinu ing Wellbutrin after assessing her response to BuSpar. Continue Wellbutrin at 150mg Continue Lexapro at 20mg Start BuSpar as previously prescribed After assessing response to BuSpar, work on discontinu ing Wellbutrin Will request lab results from recent hospital visit for dizziness Follow up in one month anxiety 27901 [id number] O99.345 F41.8 [id number] continue lexapro 20mg dailystart Buspar 5mg twice daily. may take mid day dose if neededrtc in 1 month Fatigue 34156633 R53.83 [id number] Complete previously ordered lab work to evaluate for medical causes of fatigue (B12, CBC, vitamin D, CMP, and thyroid panel)Disc ussed importance of consistent sleep schedule and adequate rest for mental healthCont inue Wellbutrin 150mg which may help with energy levels once therapeuti c effect is establishe dReassess at follow-up appointmen t in 4 weeks [id number] Jenny Barnes CNM, PMHNP-BC Main Office [address] [place] [address] 06/18/2025 10:02:35 06/19/2025 20:24:40 depression 46333679 F53.0 [id number] Kush reports feeling irritable all the time and questions whether her current medication s are helping. She expresses particular concern about weight gain which she attributes to Lexapro. She reports improvemen t in feelings of worthlessn ess and is feeling more hopeful. We discussed medication options, including the possibilit y of using low-dose Abilify for anger/irri tability, but patient declined due to potential weight gain side effects. I acknowledg ed her concerns about weight gain and discussed the importance of balancing mental health treatment with physical health concerns. Taper Lexapro: Reduce to 10mg (half tablet) daily for two weeks, then possibly alternate days before discontinu ing Discontinu e Wellbutrin Discontinu e Buspar (which patient reports not taking) Order thyroid function tests and vitamin D level to evaluate potential causes of fatigue Follow up in two weeks via telehealth to assess response to medication changes anxiety 62196 95953 [id number] O99.345 F41.8 [id number] weaning off of lexapro due to weight gainnot taking buspar Fatigue 21888469 R53.83 [id number] encourage exercise, watching dietlabs recent cbc and cmp done at [facility]. will check thyroid panel, vit d and vit b Irritabili ty and anger [id number] R45.4 [id number] recommend abilify 2mgAlexis is not willing to start this due to increase risk of weight gain Health Concerns Section Related Observation LastModified by Organization Detai ls LastModified Time None Recorded Concern Status LastModified by Organization Details LastModified Time None Recorded Payers Encounter Date Sequence Insurance Name Policy Number Policy Bailey Covered Member ID Bailey Member ID Guarantor Name 06/18/2025 1 [facility] ON OR AFTER 02/20/21 (MEDICAID REPLACEMENT - HMO) Kush Jaffe [id number] Kush Jaffe Notes Date Note Type Note Provider Name and Address Organization Details Recorded Time 06/18/2025 text/html History of present illness Kush Jaffe is a 24-year-old female presenting for follow-up by telehealth for depression/anxiety. She reports running out of Wellbutrin 2-3 days ago but has continued taking Lexapro. She expresses a desire to discontinue all her medications, stating I feel like a lot of my issues come from the weight gain, and that's been getting on top of me a lot too. She believes the Lexapro is causing weight gain, noting that her [id number] who is also on Lexapro has experienced similar weight gain. She reports feeling irritated all the time and questions whether Lexapro is helping her at all. She reports feeling extremely exhausted and sleeping all the time. She mentions that her feelings of worthlessness have improved and she is feeling more hopeful. She denies any thoughts of harming herself or others and denies experiencing hallucinations. Past Medical History Illness, Injuries, Operations, and Treatment: Not provided Previous Psychiatric or Mental Health Treatment: Not provided Previous Psychiatric or Mental Health Hospitalization: Not provided Medication History 1. Lexapro (escitalopram): Dosage: Unknown Duration: Unknown Effectiveness: Patient reports it's not helping and believes it's causing weight gain Currently taking but wants to discontinue 2. Wellbutrin (bupropion): Dosage: Unknown Duration: Unknown Effectiveness: Unknown Ran out 2-3 days ago 3. Buspar (buspirone): Dosage: Unknown Duration: Unknown Effectiveness: Unknown Patient reports she has not been taking this medication Jenny Barnes CNM, PMHNP- [address], [place], [address], [facility] 06/18/2025 10:33:04 OBGyn Episode No OBEpisode recorded.
--- OUTSIDE RECORDS SUMMARY | 2025-08-08 12:57 | XMS_ITS | Continuity of Care Document ---
Author Organization [facility] [place], operated [facility], Main Office Address [address] [place] [address] Assessment Encounter Date Assessment Date Assessment LastModified by Organization Details LastModified Time 05/21/2025 05/21/2025 Labs and Imaging Recent labs were completed at a hospital during an ER visit for dizziness, but results are not currently available in the chart. Will request these records. Visit Summary A 24-year-old female with a history of depression and anxiety presented for follow-up. She reports feeling okay but stressed due to her son's ongoing illness. She has not started the previously prescribed BuSpar and expresses hesitation about taking Wellbutrin. She reports improvement in feelings of worthlessness and hopelessness, denies suicidal or homicidal ideation, and denies hallucinations. She reports wanting to sleep all the time but is getting 7-8 hours of sleep per night. Current medications include Wellbutrin and Lexapro, with BuSpar prescribed but not yet started. The plan is to continue Wellbutrin and Lexapro, start BuSpar, and then work on discontinuing Wellbutrin after assessing response to BuSpar. Recent labs were completed during an ER visit for dizziness, but results are not currently available. Will request these records. Follow-up appointment scheduled for one month. Standardized Scales: PHQ9=2 GAD7=12 EPDS=15 [email or web address] Not available 05/21/2025 10:41:24 Plan of Treatment Reminders Order Date Submit Date Provider Last Modified By Organization Details Last Modified Time Details Appointments None record ed. Lab None record ed. Referral None record ed. Procedures None record ed. Surgeries None record ed. Imaging None record ed. Medication Orders None record ed. Patient TargetsNo targets recorded. Patient InstructionsNo instructions recorded. Reason for Referral None Reported. Results Created Date Observation Date Name Description Value Unit Range Abnormal Flag Note LastModifiedBy Organization Detail LastModifiedTime Result Notes None recorded. Problems Name Problem SNOMED Code Status Onset Date Resolution Date Notes Provider Name and Address Organization Details Recorded Time Insomnia 133716604 Active 2023 Jenny Barnes CNM, [facility] [address], [place], [address], [facility] 4 12:14:50 depression 59949699 Active 2023 Jenny Barnes CNM, [facility] [address], [place], [address], [facility] 5 11:39:17 Generalize d anxiety disorder 20630579 Active 2023 Galilea Desai [facility] 5 14:20:49 Anxiety 38188520 Active 2023 Jenny Barnes CNM, [facility] [address], [place], [address], [facility] 4 17:10:53 depression 362231091626 09 Active 2023 Jenny Barnes CNM, [facility] [address], [place], [address], [facility] 4 17:14:55 Anxiety in 269552765893 09 Active 2023 Jenny Barnes CNM, [facility] [address], [place], [address], [facility] 4 15:14:08 anxiety Active 2024 Jenny Barnes CNM, [facility] [address], [place], [address], [facility] 5 12:59:59 Feeling irritable 35821679 Active 2024 Jenny Barnes CNM, [facility] [address], [place], [address], [facility] 13:27:38 Fatigue 49593737 Active 2024 Jenny Barnes CNM, [facility] [address], [place], [address], [facility] 13:29:55 Moderate recurrent major depression 98186682 Active 2024 Galilea Desai [facility], [facility] 14:22:59 Irritabili ty and anger 740919462 Active 2024 Jenny Barnes CNM, [facility] [address], [place], [address] 10:26:20 Suicidal thoughts 9674010 Active 2024 Jenny Barnes CNM, [facility] [address], [place], [address] 15:57:27 Problem Notes None recorded. Procedures Surgical History Date Name Laterality Status Provider Name and Address Organization Details Recorded Time 10/29/19 24 Date of Last Pap Smear completed Jenny Barnes CNM, [facility] [address], [place], [address], [facility] 12/21/2023 11:14:28 tonsillectomy completed Jenny Barnes CNM, [facility] [address], [place], [address], [facility] 12/21/2023 11:18:21 Imaging Results None recorded. Procedure Notes None recorded. Medical Equipment None Reported. Allergies Allergen ID Allergen Name Allergen Category Reaction Reaction Severity Criticality Documentation Date Start Date Code Code System Note Provider Name and Address Organization Details Recorded Time 3163 tioconazo le medicatio n other Not available high 06/18/20252019 32549 RxNorm Weakn ess, achy joint s and breas t tende rness Weakn ess, achy joint s and breas t tende rness unrec ogniz ed react ion (text : Chest tight ness, code: 24859 001) ([facility] Not Available [facility] - External Data Service - prod 5 04:09:26 3164 miconazol e nitrate medicatio n Not available Not available Not available 06/18/2025 47126 RxNorm Not Available [facility] - External Data Service - prod 04:09:28 Medications Name Sig Start Date Stop [...] Available Not Available Not Avai lable OneTouch Ultra Test strips USE 1 STRIP [...] Available Not Available No t Available Vitals Date Recorded Body height Provider Name an d Address Organization Details Last Updated DateTime 05/21/2025 175.26 cm Galilea Desai [facility] 05/21/2025 10:31:56 Social History Question Answer Notes LastModified by Organizat ion Details LastModified Time Tobacco Smoking Status Never Smoker Jenny Barnes, JOANA, PMHNP-BC [address], [place], [address], [facility] 12/21/2023 11:16:49 How Many Times Per Week Do You Exercise? 3-4 Times Per Week [email or web address] Information not available 12/21/2023 Are There Any Guns Present In Your Home? No [email or web address] Information not available 12/21/2023 Do You Feel Safe In Your Home? Yes [email or web address] Information not available 12/21/2023 Do You Want To Talk About Contraception Or Prevention During Your Visit Today? No - I Do Not Want To Talk About Contraception Today Because I Am Here For Something Else [email or web address] Information not available 12/21/2023 Do You Have Any Future Plans To Get ? No, I Don't Want To Become Information not available 12/21/2023 Sex: Unknown Functional Status Question Answer Note LastModified by Organizat ion Details LastModified Time Do you use any illicit or recreational drugs? No [email or web address] Information not available 12/21/2023 What is your level of alcohol consumption? None [email or web address] Information not available 12/21/2023 What is your exercise level? Occasional [email or web address] Information not available 12/21/2023 Mental Status Question Answer Note LastModified by Organization D etails LastModified Time Do you feel stressed (tense, restless, nervous, or anxious, or unable to sleep at night)? [id number] [email or web address] Information not available 12/21/2023 Family History Nothing Reported. Medical History Condition Response Depression Y Anxiety Disorder Y Headaches Y Depression/ depression Y Gynecological History Statement/Question [...] ICD10 Code Diagnosis IMO Codes Diagnosis Note [id number] Jenny Barnes CNM, [facility]- Main Office [address] [place] [address] 05/09/2025 15:12:45 05/13/2025 16:05:32 depression 38774495 F53.0 68410 I discussed with Kush the significan t increase in her depression and anxiety symptoms since her last visit, as evidenced by her screening scores. While she was doing well on her current medication regimen at her last visit less than a month ago, she is now experienci ng increased feelings of worthlessn ess, hopelessne ss, and helplessne ss along with intrusive thoughts. I assessed that these intrusive thoughts are not active suicidal intentions , and she denied homicidal ideation. Continue Lexapro 20mg daily Continue Wellbutrin 150mg daily for now Add BuSpar 5mg two to three times daily (10-15mg total daily) to help with anxiety and intrusive thoughts After stabilizin g on BuSpar, consider discontinu ing Wellbutrin to better assess which medication changes are helpful Reordered laboratory tests including vitamin D, CBC, vitamin B12, and thyroid tests at [facility] Suggested couples therapy as a potential [facility]i [facility] Follow up in two weeks on Wednesday, May 21, 2025, at 9AM anxiety 04933 92205 1207549 O99.345 F41.8 96672999 continue lexapro 20mg dailystart Buspar 5mg twice daily. may take mid day dose if needed Fatigue 36563644 R53.83 [id number] Complete previously ordered lab work to evaluate for medical causes of fatigue (B12, CBC, vitamin D, CMP, and thyroid panel)Disc ussed importance of consistent sleep schedule and adequate rest for mental healthCont inue Wellbutrin 150mg which may help with energy levels once therapeuti c effect is establishe dReassess at follow-up appointmen t in 2 weeks [id number] Jenny Barnes CNM, PMHNP- Main Office [address] [place] [address] 05/21/2025 10:03:19 05/22/2025 16:38:01 depression 91076830 F53.0 85318 Kush reports feeling okay but stressed due [...] dizziness Follow up in one month anxiety 66848 82303 6064578 O99.345 F41.8 28221707 continue lexapro 20mg dailystart Buspar 5mg twice daily. may take mid day dose if neededrtc in 1 month Fatigue 76417355 R53.83 [id number] Complete previously ordered lab work to evaluate for medical causes of fatigue (B12, CBC, vitamin D, CMP, and thyroid panel)Disc ussed importance of consistent sleep schedule and adequate rest for mental healthCont inue Wellbutrin 150mg which may help with energy levels once therapeuti c effect is establishe dReassess at follow-up appointmen t in 4 weeks Health Concerns Section Related Observation LastModified by Organization Detai ls LastModified Time None Recorded Concern Status LastModified by Organization Details LastModified Time None Recorded Payers Encounter Date Sequence Insurance Name Policy Number Policy Bailey Covered Member ID Bailey Member ID Guarantor Name 05/21/2025 1 [facility] ON OR AFTER 02/20/21 (MEDICAID REPLACEMENT - HMO) Kush Jaffe [id number] Kush Jaffe Notes Date Note Type Note Provider Name and Address Organization Details Recorded Time 05/21/2025 text/html History of present illness Kush Jaffe is a 24-year-old female presenting for a follow-up psychiatric appointment. She reports feeling okay but mentions being stressed due to her son's illness. She explains that her son, Levon, has been sick since April. tely ruled out. She plans to take her son to his specialty therapist, Dr. Rose in [place], later today. Regarding her own mental health treatment, she admits that she has not started taking the BuSpar that was previously prescribed. She states that she keeps trying to talk myself into starting it and expresses fear about taking Wellbutrin as well, saying I'm so scared to take it, but I know I probably just need to take it. She mentions that she had blood work done during a recent hospital visit when she was experiencing severe dizziness, but she hasn't received the results. When asked about feelings of worthlessness and hopelessness, she reports that these feelings are better. She denies thoughts of harming herself or others and denies hallucinations. Regarding sleep, she states I feel like I wanna sleep all the time but reports getting a normal amount of sleep (7-8 hours) despite sometimes going to bed late (around 2 AM) due to caring for her baby. Past Medical History Illness, Injuries, Operations, and Treatment: Recent episode of severe dizziness requiring hospital visit Previous Psychiatric or Mental Health Treatment: Not provided Previous Psychiatric or Mental Health Hospitalization: Not provided Medication History 1. Wellbutrin: Dosage: Duration: Currently prescribed but patient expresses fear about taking it Effectiveness: Side Effects: 2. Lexapro: Dosage: Duration: Currently prescribed Effectiveness: Side Effects: 3. BuSpar: Dosage: Duration: Recently prescribed but not started Effectiveness: N/A - Patient has not initiated treatment Side Effects: N/A - Patient has not initiated treatment Jenny Barnes, JOANA, PMHNP-BC [address], [place], [address], [facility] 05/21/2025 10:45:49 OBGyn Episode No OBEpisode recorded.
--- OUTSIDE RECORDS SUMMARY | 2025-08-08 12:57 | XMS_ITS | Continuity of Care Document ---
Author Organization [facility], Main Office Address [address] [place] [address] Assessment Encounter Date Assessment Date Assessment LastModified by Organization Details LastModified Time 05/09/2025 05/09/2025 Labs and Imaging Laboratory tests were ordered previously over two months ago but patient has not completed them. Orders were resubmitted today for vitamin D, CBC, vitamin B12, and thyroid tests to be completed at [facility] lab. Visit Summary Kush Jaffe, a female with depression and anxiety, was seen today for follow-up. She reported significant worsening of symptoms since her last visit on April 19, 2025, despite continuing her prescribed medications of Lexapro 20mg and Wellbutrin 150mg. She is experiencing increased feelings of worthlessness, hopelessness, and helplessness along with intrusive thoughts, though she denies active suicidal ideation or homicidal thoughts. Sleep was reported as adequate with no problems falling or staying asleep. She denies auditory or visual hallucinations. She recently purchased her first car, which was noted as a positive development, but is experiencing relationship difficulties with her partner. Couples therapy was suggested as a potential intervention. The treatment plan discussed involved continuing Lexapro 20mg and Wellbutrin 150mg while adding BuSpar 5mg two to three times daily to help with anxiety and intrusive thoughts. After stabilizing on BuSpar, consideration will be given to discontinuing Wellbutrin. Laboratory tests were reordered to be completed at [facility], including vitamin D, CBC, vitamin B12, and thyroid tests. A follow-up appointment was scheduled for May 21, 2025, at 9AM. Standardized Scales: PHQ9=18 (previously 1) GAD7=16 (previously 4) EPDS=18 (previously 8) [email or web address] Not available 05/09/2025 16:20:28 Plan of Treatment Reminders Order Date Submit Date Provider Last Modified By Organization Details Last Modified Time Details Appointments None recorded. Lab vitamin D, 25-hydroxy , total, serum [address] (Lab), [address] [place], [address], 10:17:33 CBC w/ auto diff 2024 [facility] (Lab), [address] [facility], [place], [address], 11:18:05 vitamin B12, serum [address] (Lab), [address] [place], [address], 10:17:33 CMP, serum or plasma [address] (Lab), [address] [place], [address], 10:17:33 TSH, serum, reflex free T4 [address] (Lab), [address] [place], [address], 10:17:33 Referral None recorded. Procedures None recorded. Surgeries None recorded. Imaging None recorded. Medication Orders buspirone 5 mg tablet 2024 [id number], [address] [facility], [place], [place], [id number], 16:16:49 Patient TargetsNo targets recorded. Patient InstructionsNo instructions recorded. Reason for Referral None Reported. Results Created Date Observation Date Name Description Value Unit Range Abnormal Flag Note LastModifiedBy Organization Detail LastModifiedTime Result Notes None recorded. Problems Name Problem SNOMED Code Status Onset Date Resolution Date Notes Provider Name and Address Organization Details Recorded Time Insomnia 684767171 Active 2023 Jenny Barnes CNM, [facility] [address], [place], [address], [facility] 4 12:14:50 depression 77124730 Active 2023 Jenny Barnes CNM, [facility] [address], [place], [address], [facility] 5 11:39:17 Generalize d anxiety disorder 38314078 Active 2023 Galilea Desai [facility] 5 14:20:49 Anxiety 77317060 Active 2023 Jenny Barnes CNM, [facility] [address], [place], [address], [facility] 4 17:10:53 depression [id number] 09 Active 2023 Jenny Barnes CNM, [facility] [address], [place], [address], [facility] 4 17:14:55 Anxiety in 752808444153 09 Active 2023 Jenny Barnes CNM, [facility] [address], [place], [address], [facility] 4 15:14:08 anxiety Active 2024 Jenny Barnes CNM, [facility] [address], [place], [address], [facility] 5 12:59:59 Feeling irritable 25564173 Active 2024 Jenny Barnes CNM, [facility] [address], [place], [address], [facility] 13:27:38 Fatigue 03992699 Active 2024 Jenny Barnes CNM, [facility] [address], [place], [address] 13:29:55 Moderate recurrent major depression 67894868 Active 2024 Galilea Desai [facility], [facility] 5 14:22:59 Irritabili ty and anger 802956616 Active 2024 Jenny Barnes CNM, [facility] [address], [place], [address] 10:26:20 Suicidal thoughts 6561963 Active 2024 Jenny Barnes CNM, [facility] [address], [place], [address] 15:57:27 Problem Notes None recorded. Procedures Surgical History Date Name Laterality Status Provider Name and Address Organization Details Recorded Time 10/29/19 24 Date of Last Pap Smear completed Jenny Barnes CNM, [facility] [address], [place], [address] 12/21/2023 11:14:28 tonsillectomy completed Jenny Barnes CNM, [facility] [address], [place], [address] 12/21/2023 11:18:21 Imaging Results None recorded. Procedure Notes None recorded. Medical Equipment None Reported. Allergies Allergen ID Allergen Name Allergen Category Reaction Reaction Severity Criticality Documentation Date Start Date Code Code System Note Provider Name and Address Organization Details Recorded Time 3163 tioconazo le medicatio n other Not available high 06/18/20252019 23839 RxNorm Weakn ess, achy joint s and breas t tende rness Weakn ess, achy joint s and breas t tende rness unrec ogniz ed react ion (text : Chest tight ness, code: 99246 001) ([facility]) Not Available [facility] - External Data Service - prod 5 04:09:26 3164 miconazol e nitrate medicatio n Not available Not available Not available 06/18/2025 80101 RxNorm Not Available [facility] - External Data Service - prod 5 04:09:28 Medications Name Sig Start Date Stop [...] 2024 active Not Available Not Available Not Aide mcnulty OneTouch Ultra Test strips USE 1 STRIP [...] Smoking Status Never Smoker Jenny Barnes, CNM, PMHNP- [address], [place], [address], [facility] - [facility] 12/21/2023 11:16:49 How Many Times Per Week Do You Exercise? 3-4 Times Per Week [email or web address] Information not available 12/21/2023 Are There Any Guns Present In Your Home? No [email or web address] Information not available 12/21/2023 Do You Feel Safe In Your Home? Yes [email or web address] Information not available 12/21/2023 Do You Want To Talk About Contraception Or Prevention During Your Visit Today? No - I Do Not Want To Talk About Contraception Today Because I Am Here For Something Else Information not available 12/21/2023 Do You Have Any Future Plans To Get ? No, I Don't Want To Become [email or web address] Information not available 12/21/2023 Sex: Unknown Functional Status Question Answer Note LastModified by Organizat ion Details LastModified Time Do you use any illicit or recreational drugs? No [email or web address] Information not available 12/21/2023 What is your level of alcohol consumption? None [email or web address] Information not available 12/21/2023 What is your exercise level? Occasional [email or web address] Information not available 12/21/2023 Mental Status Question Answer Note LastModified by Organization D etails LastModified Time Do you feel stressed (tense, restless, nervous, or anxious, or unable to sleep at night)? [id number] Information not available 12/21/2023 Family History Nothing [...] ICD10 Code Diagnosis IMO Codes Diagnosis Note [id number] Jenny Barnes CNM, P[facility]- Main Office [address] [place] [address] 04/19/2025 09:56:24 04/20/2025 06:23:21 depression 36769812 F53.0 06330 Kush reports she has been taking Lexapro 20mg and recently started Wellbutrin 150mg one week ago. She reports ongoing fatigue despite starting Wellbutrin and some continued irritabili ty. She denies feelings of worthlessn ess or hopelessne ss and denies suicidal ideation. I discussed with her that Wellbutrin can take 4-6 weeks to reach full effectiven ess, and that it can have an energizing effect which may help with her fatigue symptoms. We discussed that this combinatio n of medication s (Lexapro and Wellbutrin ) appears appropriat e for now. Continue Lexapro 20mg daily; prescribed 90-day supply Continue Wellbutrin 150mg daily; prescribed 30-day supply Follow up in one month (May 17, 2025) via telehealth to assess response to medication combinatio n Complete previously ordered lab work (B12, CBC, vitamin D, CMP, and thyroid panel) to rule out medical causes of fatigue Monitor for any worsening of anxiety symptoms, as Wellbutrin can sometimes exacerbate anxiety anxiety 79187 94836 [id number] O99.345 F41.8 25362985 continue lexapro 20mg daily Fatigue 38699957 R53.83 [id number] Kush reports significan t fatigue despite starting Wellbutrin . She describes being exhausted 15/03. She works 12-hour shifts and has variable sleep schedules, sometimes not going to bed until 10-11 PM while needing to wake at 5:30 AM. Lab work was previously ordered but not completed. Complete previously ordered lab work to evaluate for medical causes of fatigue (B12, CBC, vitamin D, CMP, and thyroid panel)Disc ussed importance of consistent sleep schedule and adequate rest for mental healthCont inue Wellbutrin 150mg which may help with energy levels once therapeuti c effect is establishe dReassess at follow-up appointmen t in one month [id number] Jenny Barnes, JOANA, PMHNP- Main Office [address] [place] [address] 05/09/2025 15:12:45 05/13/2025 16:05:32 depression 31606638 F53.0 66420 I discussed with Kush the significan t [...] CBC, vitamin B12, and thyroid tests at [facility] Suggested couples therapy as a potential interventi on for relationsh ashley de lunai es Follow up in two weeks on Wednesday, May 21, 2025, at 9AM anxiety 32906 38532 [id number] O99.345 F41.8 [id number] continue lexapro 20mg dailystart Buspar 5mg twice daily. may take mid day dose if needed Fatigue 66365685 R53.83 [id number] Complete previously ordered lab work to evaluate for medical causes of fatigue (B12, CBC, vitamin D, CMP, and thyroid panel)Disc ussed importance of consistent sleep schedule and adequate rest for mental healthCont inue Wellbutrin 150mg which may help with energy levels once therapeuti c effect is establishe dReassess at follow-up appointmen t in 2 weeks Health Concerns Section Related Observation LastModified by Organization Detai ls LastModified Time None Recorded Concern Status LastModified by Organization Details LastModified Time None Recorded Payers Encounter Date Sequence Insurance Name Policy Number Policy Bailey Covered Member ID Bailey Member ID Guarantor Name 05/09/2025 1 [facility] ON OR AFTER 02/20/21 (MEDICAID REPLACEMENT - HMO) Kush Jaffe [id number] Kush Jaffe Notes Date Note Type Note Provider Name and Address Organization Details Recorded Time 05/09/2025 text/html History of present illness Kush Jaffe presents today for a follow-up visit. She completed screening questionnaires that showed significant increases in her depression and anxiety scores compared to her previous visit. Her PHQ-9 score increased from 1 to 18, anxiety score increased from 4 to 16, and her depression scale increased from 8 to 18. She reports experiencing feelings of worthlessness, hopelessness, and helplessness. She also mentions having intrusive thoughts but clarifies these are not active suicidal intentions. She recently purchased her first car, which was noted as a positive development. She reports relationship difficulties with her partner. Sleep is reported as adequate with no problems falling or staying asleep, though the exact number of hours was not clearly specified in the conversation. Past Medical History Illness, Injuries, Operations, and Treatment: Not provided Previous Psychiatric or Mental Health Treatment: Not provided Previous Psychiatric or Mental Health Hospitalization: Not provided Medication History Lexapro 20mg daily and Wellbutrin 150mg daily. She was doing well on this combination when seen at her last visit on April 19, 2025, but is now experiencing increased symptoms despite continuing these medications. Jenny Barnes CNM, PMHNP- [address] [facility] [address] [facility] [address], [place], [address], [facility] 05/09/2025 16:29:55 OBGyn Episode No OBEpisode recorded.
--- OUTSIDE RECORDS SUMMARY | 2025-08-08 12:57 | XMS_ITS | Continuity of Care Document ---
Author Organization [facility], Main Office Address [address] [place] [address] Assessment Encounter Date Assessment Date Assessment LastModified by Organization Details LastModified Time 07/02/2025 07/02/2025 Labs and Imaging Genetic testing ([facility]) ordered during this visit to help determine optimal medication choices. Visit Summary A 24-year-old female with a history of depression and anxiety presented by telehealth for evaluation after discontinuing her medications. She reported significant mood disturbances including irritability, anger, and racing thoughts that were affecting her ability to parent effectively. She acknowledged passive thoughts of being better off but firmly denied any active suicidal ideation or intent. The patient has previously taken Wellbutrin without significant side effects and had a positive response to sertraline during her . She recently attempted to self-adjust her sertraline dosage, going from 100mg to 25mg abruptly instead of the intended 50mg reduction. The treatment plan includes restarting sertraline 50mg and Wellbutrin 150mg. Genetic testing through [facility] was ordered to help determine optimal medication choices for future management. The patient was educated about the importance of medication consistency and the chronic nature of her condition. A follow-up appointment was scheduled with Kathleen, a nurse practitioner, to review the genetic testing results in approximately two weeks. PHQ9=17 GAD7=8 EPDS=10 [email or web address] Not available 07/02/2025 15:56:32 Plan of Treatment Reminders Order Date Submit Date Provider Last Modified By Organization Details Last Modified Time Details Appointments None recorded. Lab None recorded. Referral None recorded. Procedures None recorded. Surgeries None recorded. Imaging None recorded. Medication Orders Wellbutrin XL 150 mg 24 hr tablet, extended release 2024 025 [facility]/Pharmacy #[id number], [address] [place], [address], 5 16:27:47 Zoloft 50 mg tablet 2024 025 [facility]/Pharmacy #[id number], [address] [place], [address], 5 16:27:46 Patient TargetsNo targets recorded. Patient InstructionsNo instructions recorded. Reason for Referral None Reported. Problems Name Problem SNOMED Code Status Onset Date Resolution Date Notes Provider Name and Address Organization Details Recorded Time Insomnia 739806222 Active 2023 Jenny Barnes CNM, [facility] [address], [place], [address], [facility] 4 12:14:50 depression 80397117 Active 2023 Jenny Barnes CNM, [facility] [address], [place], [address], [facility] 5 11:39:17 Generalize d anxiety disorder 23634306 Active 2023 Galilea Desai [facility] 5 14:20:49 Anxiety 98509317 Active 2023 Jenny Barnes CNM, [facility] [address], [place], [address], [facility] 4 17:10:53 depression [id number] 09 Active 2023 Jenny Barnes CNM, [facility] [address], [place], [address], [facility] 4 17:14:55 Anxiety in 009610767530 09 Active 2023 Jenny Barnes CNM, [facility] [address], [place], [address], [facility] 4 15:14:08 anxiety Active 2024 Jenny Barnes CNM, [facility] [address], [place], [address], [facility] 5 12:59:59 Feeling irritable 30207664 Active 2024 Jenny Barnes CNM, [facility] [address], [place], [address], [facility] 5 13:27:38 Fatigue 59359409 Active 2024 Jenny Barnes CNM, [facility] [address], [place], [address] [place] 5 13:29:55 Moderate recurrent major depression 06238398 Active 2024 Galilea Desai [facility] 5 14:22:59 Irritabili ty and anger 122100176 Active 2024 Jenny Barnes CNM, [facility] [address], [place], [address] [place] 5 10:26:20 Suicidal thoughts 9638426 Active 2024 Jenny Barnes CNM, [facility] [address], [place], [address], [facility] 5 15:57:27 Problem Notes None recorded. Procedures Surgical History Date Name Laterality Status Provider Name and Address Organization Details Recorded Time 10/29/19 24 Date of Last Pap Smear completed Jenny Barnes CNM, [facility] [address], [place], [address], [facility] 12/21/2023 11:14:28 tonsillectomy completed Jenny Barnes CNM, [facility] [address], [place], [address], [place] 12/21/2023 11:18:21 Imaging Results None recorded. Procedure Notes None recorded. Medical Equipment None Reported. Allergies Allergen ID Allergen Name Allergen Category Reaction Reaction Severity Criticality Documentation Date Start Date Code Code System Note Provider Name and Address Organization Details Recorded Time 3163 tioconazo le medicatio n other Not available high 06/18/20252019 77426 RxNorm Weakn ess, achy joint s and breas t tende rness Weakn ess, achy joint s and breas t tende rness unrec ogniz ed react ion (text : Chest tight ness, code: 17874 001) (from exter nal sourc e) Not Available [employer] - External Data Service - prod 5 04:09:26 3164 miconazol e nitrate medicatio n Not available Not available Not available 06/18/2025 79844 RxNorm Not Available [employer] Data [employer] - [employer] 5 04:09:28 Medications Name Sig Start Date [...] Not Available Not Available Not Avai lable AdictizTouch Ultra Test strips USE 1 STRIP TO [...] active Not Available Not Available Not Avai pricila OneTouch Ultra2 Meter USE TO TEST BLOOD [...] Smoking Status Never Smoker Jenny Barnes, JOANA, PMHNP- [address], [place], [address], [facility] 12/21/2023 11:16:49 How Many Times Per Week Do You Exercise? 3-4 Times Per Week [email or web address] Information not available 12/21/2023 Are There Any Guns Present In Your Home? No [email or web address] Information not available 12/21/2023 Do You Feel Safe In Your Home? Yes [email or web address] Information not available 12/21/2023 Do You Want To Talk About Contraception Or Prevention During Your Visit Today? No - I Do Not Want To Talk About Contraception Today Because I Am Here For Something Else [email or web address] Information not available 12/21/2023 Do You Have Any Future Plans To Get ? No, I Don't Want To Become [email or web address] Information not available 12/21/2023 Sex: Unknown Functional Status Question Answer Note LastModified by Organizat ion Details LastModified Time Do you use any illicit or recreational drugs? No [email or web address] Information not available 12/21/2023 What is your level of alcohol consumption? None [email or web address] Information not available 12/21/2023 What is your exercise level? Occasional [email or web address] Information not available 12/21/2023 Mental Status Question Answer Note LastModified by Organization D etails LastModified Time Do you feel stressed (tense, restless, nervous, or anxious, or unable to sleep at night)? [id number] Information not available 12/21/2023 Family History Nothing [...] ICD10 Code Diagnosis IMO Codes Diagnosis Note [id number] Jenny Barnes CNM, PMHNP- Main Office [address] [place] [address] 06/18/2025 10:02:35 06/19/2025 20:24:40 depression 12468299 F53.0 34261 Kush reports feeling irritable all the time [...] to assess response to medication changes anxiety 49992 42131 6852382 O99.345 F41.8 35575024 weaning off of lexapro due to weight gainnot taking buspar Fatigue 17388789 R53.83 04686769 encourage exercise, watching dietlabs recent cbc and cmp done at [facility]. will check thyroid panel, vit d and vit b Irritabili ty and anger 050724999 R45.4 643390 recommend abilify 2mgAlexis is not willing to start this due to increase risk of weight gain 9079 Jenny Barnes CNM, PMHNP- Main Office [address] [place] [address] 07/02/2025 14:38:48 07/03/2025 19:24:04 depression 02671635 F53.0 50340 I discussed with Kush the importance of medication consistenc y for managing her symptoms. She acknowledg ed her pattern of stopping medication s when feeling better and the subsequent return of symptoms. I emphasized that her condition likely requires long-term medication management . We discussed her previous positive response to sertraline during and her tolerable experience with Wellbutrin . Restart sertraline (Zoloft) 50mg daily, preferably at night Restart Wellbutrin 150mg daily, preferably in the morning Ordered [facility] genetic testing to help determine optimal medication choices Scheduled follow-up with KAROL Wang. in two weeks to review genetic testing results Kathleen will then schedule patient for follow-up with me to implement any medication changes based on genetic testing results Emphasized the importance of medication consistenc y and adherence to the prescribed regimen Encouraged patient to pursue therapy in addition to medication management anxiety 80756 58925 8899479 O99.345 F41.8 55189787 Restart sertraline (Zoloft) 50mg daily, preferably at night Restart Wellbutrin 150mg daily, preferably in the morning Ordered [facility] genetic testing to help determine optimal medication choices Encouraged patient to pursue therapy in addition to medication management Irritabili ty and anger [id number] R45.4 978574 recommend abilify 2mgAlexis is not willing to start this due to increase risk of weight gain Noncomplia nce with medication regimen 308090130 Z91.148 [id number] II discussed with Kush her history of medication non-adhere nce and self-adjus tment of dosages. She acknowledg ed abruptly changing her sertraline dose from 100mg to 25mg instead of the intended 50mg reduction. We discussed how inconsiste nt medication use contribute s to her symptom instabilit y.Provided education about the importance of taking medication s as prescribed Explained how abrupt dosage changes can affect brain chemistry and worsen symptomsRe commended consistent timing of medication administra tion to establish routineAdv ised against self-adjus ting medication dosages without medical consultati onDiscusse d the chronic nature of her condition and likely need for long-term medication management Suicidal thoughts 079935 6 R45.437 [id number] Patient denies active suicidal ideation, plan, or intent. She reports passive thoughts that she would be better off but explicitly states she would not harm herself. She provides the example that if she were in danger (walking in the road with a car coming), she would immediatel y move to safety. if feelings of thoughts of self harm increae to text [phone], call 911 or go to the [facility] Health Concerns Section Related Observation LastModified by Organization Ari porter LastModified Time None Recorded Concern Status LastModified by Organization Details LastModified Time None Recorded Payers Encounter Date Sequence Insurance Name Policy Number Policy Bailey Covered Member ID Bailey Member ID Guarantor Name 07/02/2025 1 [facility] ON OR AFTER 7/1/21 (MEDICAID REPLACEMENT - HMO) Kush Jaffe [id number] Kush Jaffe Notes Date Note Type Note Provider Name and Address Organization Details Recorded Time 07/02/2025 text/html History of present illness Kush Jaffe is a 24-year-old female presenting by telehealth for psychiatric follow up after stopping medications. She reports struggling with her mental health and has a history of inconsistent medication use. She recently discontinued her medications because she felt she was doing well and didn't need them anymore. She also mentions that when she weighed around 300 pounds, she questioned whether she needed medication. She reports experiencing significant mood disturbances, including irritability, anger, aggravation, and having a short fuse. She states, I hate being a mother, which she acknowledges is not her true feeling as she normally loves being a mom. She describes having no patience, feeling angry and aggravated. She reports that her head is so loud with racing thoughts that feel never-ending. Kush reports passive thoughts that she would be better off but explicitly denies any active suicidal ideation, plan, or intent. She clarifies that she wouldn't harm herself but feels that feeling nothing at all would be better than feeling a thousand things at once. She states that if she were in danger (like walking in the middle of the road with a car coming), she would immediately move to safety, indicating no active desire to harm herself. She reports feeling hopeless and doesn't believe anything will help her mental state. She expresses concern about her irritability affecting her parenting, stating she gets aggravated when her child talks to her, which she recognizes is not her normal self. Regarding her medication history, she reports having tried Wellbutrin in the past and didn't feel horrible on it, noting she didn't experience the Wellbutrin rage she had heard about. She has also taken sertraline (Zoloft) previously, particularly during her with her child Preet, and reports she did great on it at that time. Recently, she increased her sertraline dose to 100mg hoping it would make her feel more numb to a situation she was experiencing. She was then supposed to decrease to 50mg but accidentally dropped to 25mg instead. She is currently off all medications. 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 She has a child named Preet. She recently moved from [facility] to [place]. Past Medical History Illness, Injuries, Operations, and Treatment: Not provided Previous Psychiatric or Mental Health Treatment: Previously treated with Wellbutrin and sertraline (Zoloft). She took sertraline during her with her child Preet. Previous Psychiatric or Mental Health Hospitalization: Not provided Medication History 1. Wellbutrin: Dosage: Unknown Duration: Unknown Effectiveness: Patient reports she didn't feel horrible on it and didn't experience the Wellbutrin rage she had heard about. Reason for Discontinuation: Patient discontinued medications because she felt she was doing well. 2. Sertraline (Zoloft): Dosage: Recently was on 100mg, then was supposed to decrease to 50mg but accidentally dropped to 25mg Duration: Unknown, but was previously on it during with her child Preet Effectiveness: Patient reports she did great on it during her Reason for Discontinuation: Recently discontinued; specific reason not stated beyond general medication non-adherence Jenny Barnes, JOANA, PMHNP-[facility] [address], [place], [address], [facility] 07/02/2025 16:30:12 OBGyn Episode No OBEpisode recorded.
--- OUTSIDE RECORDS SUMMARY | 2025-08-08 12:58 | XMS_ITS | Data Portability ---
Author Organization [facility] (patients home) Address [address] [place] [address] Assessment Encounter Date Assessment Date Assessment LastModified by Organization Details LastModified Time 04/19/2025 04/19/2025 Labs and Imaging Laboratory tests were ordered previously (approximately 2 months ago) including B12, CBC, vitamin D, CMP, and thyroid panel, but patient has not completed these tests yet. She states she plans to get them done the following day. Visit Summary A 24-year-old female with a history of depression and anxiety presenting by telehealth for follow-up. She recently started Wellbutrin 150mg one week ago (April 13, 2025) in addition to her Lexapro. She reports ongoing fatigue and some irritability but denies feelings of worthlessness, hopelessness, or suicidal ideation. She reports recent relationship difficulties resulting in temporary separation from her partner, which she describes as creating a calmer home environment. 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 The patient has not completed previously ordered lab work (B12, CBC, vitamin D, CMP, and thyroid panel) but plans to do so tomorrow. She reports some decreased appetite but denies other significant physical symptoms. Sleep is variable, with bedtimes ranging from 8:00 PM to 11:00 PM and wake times around 5:30-5:50 AM. The treatment plan includes continuing Lexapro 20mg and Wellbutrin 150mg with follow-up in one month to assess response to the medication combination. The importance of completing lab work was emphasized to rule out medical causes of fatigue. The patient was educated about the typical timeframe for Wellbutrin to take full effect (4-6 weeks). Standardized Scales: PHQ9=1 GAD7=4 EPDS=8 Not available 04/19/2025 20:38:37 05/09/2025 05/09/2025 Labs and Imaging Laboratory tests were ordered previously over two months ago but patient has not completed them. Orders were resubmitted today for vitamin D, CBC, vitamin B12, and thyroid tests to be completed at [facility] lab. Visit Summary Kush Jaffe, a female [...] tests were reordered to be completed at [facility], including vitamin D, CBC, vitamin B12, and thyroid tests. A follow-up appointment was scheduled for May 21, 2025, at 9AM. Standardized Scales: PHQ9=18 (previously 1) GAD7=16 (previously 4) EPDS=18 (previously 8) Not available 05/09/2025 16:20:28 05/21/2025 05/21/2025 Labs and Imaging Recent labs [...] one month. Standardized Scales: PHQ9=2 GAD7=12 EPDS=15 [email or web address] Not available 05/21/2025 10:41:24 06/18/2025 06/18/2025 Labs and Imaging Laboratory Tests [...] function and vitamin D were placed with [facility]. A follow-up telehealth appointment was scheduled for July 02, 2025, at 2:30 PM to assess her status after medication changes. Standardized Scales: PHQ9=2 GAD7=6 EPDS=7 [email or web address] Not available 06/18/2025 10:25:56 07/02/2025 07/02/2025 Labs and Imaging Genetic testing [...] in approximately two weeks. PHQ9=17 GAD7=8 EPDS=10 [email or web address] Not available 07/02/2025 15:56:32 Plan of Treatment Reminders Order Date Submit Date Provider Last Modified By Organization Details Last Modified Time Details Appointments None recorded. Lab vitamin B12, serum [address] (Lab), [address] [place] [address], [address], 5 10:14:11 vitamin D, 25-hydroxy, total, serum [address] (Lab), [address] [place] [address], [address], 5 10:14:11 TSH + free T4, serum [address] (Lab), [address] [place] [address], [address], 5 10:14:11 T3, free, serum or plasma [address] (Lab), [address] [place], [address], 5 10:14:11 vitamin D, 25-hydroxy, total, serum [address] (Lab), [address] [place], [address], 5 10:17:33 CBC w/ auto diff 2024 [facility] (Lab), [address] [place], [address], 5 11:18:05 vitamin B12, serum [address] (Lab), [address] [place], [address], 5 10:17:33 CMP, serum or plasma [address] [place] [address] (Lab), [address] [place], [address], 5 10:17:33 TSH, serum, reflex free T4 [address] (Lab), [address] [place], [address], 5 10:17:33 Referral None recorded. Procedures None recorded. Surgeries None recorded. Imaging None recorded. Medication Orders Wellbutrin XL 150 mg 24 hr tablet, extended release 2024 [facility] #[id number], [address] [place], [address], 5 16:27:47 Zoloft 50 mg tablet 2024 025 [facility] #[id number], [address] [place], [address], 5 16:27:46 buspirone 5 mg tablet 2024 025 [facility] #[id number], [address] [place] [address], [id number], 5 16:16:49 Lexapro 20 mg tablet 2024 025 [facility] #[id number], [address] [place] [address], [id number], 5 10:12:56 Wellbutrin XL 150 mg 24 hr tablet, extended release 2024 025 [facility] #[id number], [address] [place] [address], [id number], 5 10:12:53 Patient TargetsNo targets recorded. Patient InstructionsNo instructions recorded. Reason for Referral None Reported. Results Created Date Observation Date Name Description Value Unit Range Abnormal Flag Note LastModifiedBy Organization Detail LastModifiedTime Result Notes None recorded. Problems Name Problem SNOMED Code Status Onset Date Resolution Date Notes Provider Name and Address Organization Details Recorded Time Insomnia 431390711 Active 2023 Jenny Barnes CNM, [facility] [address], [place], [address], [facility] 4 12:14:50 depression 72369751 Active 2023 Jenny Barnes CNM, [facility] [address], [place], [address], [facility] 5 11:39:17 Generalize d anxiety disorder 48695519 Active 2023 Galilea Desai [facility], [facility] 5 14:20:49 Anxiety 09682420 Active 2023 Jenny Barnes CNM, [facility] [address], [place], [address], [facility] 4 17:10:53 depression 353665116274 09 Active 2023 Jenny Barnes CNM, [facility] [address], [place], [address], [facility] 4 17:14:55 Anxiety in 426411139632 09 Active 2023 Jenny Barnes CNM, [facility]- [address], [place], [address], [facility] 4 15:14:08 anxiety Active 2024 Jenny Barnes CNM, [facility]- [address], [place], [address], [facility] 5 12:59:59 Feeling irritable 53104047 Active 2024 Jenny Barnes CNM, [facility]- [address], [place], [address], [facility] 5 13:27:38 Fatigue 76501453 Active 2024 Jenny Barnes CNM, [facility]- [address], [place], [address], [facility] 5 13:29:55 Moderate recurrent major depression 64706863 Active 2024 Galilea Desai [facility] 5 14:22:59 Irritabili ty and anger 787463817 Active 2024 Jenny Barnes CNM, [facility]- [address], [place], [address], [facility] 5 10:26:20 Suicidal thoughts 6884024 Active 2024 Jenny Barnes CNM, [facility]- [address], [place], [address], [facility] 5 15:57:27 Problem Notes None recorded. Procedures Surgical History Date Name Laterality Status Provider Name and Address Organization Details Recorded Time 10/29/19 24 Date of Last Pap Smear completed Jenny Barnes CNM, [facility] [address], [place], [address], [facility] 12/21/2023 11:14:28 tonsillectomy completed Jenny Barnes CNM, [facility] [address], [place], [address], [facility] 12/21/2023 11:18:21 Imaging Results None recorded. Procedure Notes None recorded. Medical Equipment None Reported. Allergies Allergen ID Allergen Name Allergen Category Reaction Reaction Severity Criticality Documentation Date Start Date Code Code System Note Provider Name and Address Organization Details Recorded Time 3163 tioconazo le medicatio n other Not available [facility] 06/18/20252019 34129 RxNorm Weakn ess, achy joint s and breas t tende rness Weakn ess, achy joint s and breas t tende rness unrec ogniz ed react ion (text : Chest tight ness, code: 15615 001) (from [facility]) Not Available estela [employer] - prod 5 04:09:26 3164 miconazol e nitrate medicatio n Not available Not available Not available 06/18/2025 09828 RxNorm Not Available [employer] - prod 5 04:09:28 Medications [...] Updated DateTime 05/21/2025 175.26 cm Galilea Desai [facility] 05/21/2025 10:31:56 Social History Question Answer Notes LastModified by [employer] Details LastModified Time Tobacco Smoking Status Never Smoker Jenny Barnes, JOANA, PMHNP- [address], [place], [address], [facility] 12/21/2023 11:16:49 How Many Times Per Week Do You Exercise? 3-4 Times Per Week [email or web address] Information not available 12/21/2023 Are There Any Guns Present In Your Home? No [email or web address] Information not available 12/21/2023 Do You Feel Safe In Your Home? Yes Information not available 12/21/2023 Do You Want To Talk About Contraception Or Prevention During Your Visit Today? No - I Do Not Want To Talk About Contraception Today Because I Am Here For Something Else [email or web address] Information not available 12/21/2023 Do You Have Any Future Plans To Get ? No, I Don't Want To Become [email or web address] Information not available 12/21/2023 Sex: Unknown Functional Status Question Answer Note LastModified by [employer] Details LastModified Time Do you use any illicit or recreational drugs? No [email or web address] Information not available 12/21/2023 What is your level of alcohol consumption? None [email or web address] Information not available 12/21/2023 What is your exercise level? Occasional Information not available 12/21/2023 Mental Status Question Answer Note LastModified by Organization D etails LastModified Time Do you feel stressed (tense, restless, nervous, or anxious, or unable to sleep at night)? [id number] [email or web address] Information not available 12/21/2023 Family History Nothing [...] ICD10 Code Diagnosis IMO Codes Diagnosis Note 2528 Jenny Barnes CNM, [facility] Main Office [address] [place] [address] 12/21/2023 11:01:04 12/21/2023 19:46:48 depression 60797884 F53.0 increase dosage of zoloft to 100mg dailyrtc 3 weekreferr al given for Therapist [place] to everyArt groupinfo also given on support internatio nal Insomnia 246521139 G47.0 0 Discussed cognitive behavioral therapy for insomnia. Discussed making a bedtime ritual. Taking her hydroxyzin e at least an hour before bed. Warm shower prior to bed. Warm decaffeina elmer tea. Limit cell phone use or stimulatin g activity activity prior to bed. If in bed longer than 15 to 20 minutes, recommend getting out of bed. Do not get on cell phone, did not turn on TV. Recommend none stimulatin g activities such as reading a book.hydro xtzine 25mg at hs for sleep. Generalize d anxiety disorder 24002311 F41.1 hydroxyzin e as needed for anxiety 2808 Jenny Barnes CNM, [facility] Main Office [address] [place] [address] 01/19/2024 15:32:50 01/19/2024 16:16:25 Generalized anxiety disorder 01014812 F41.1 start buspar 5mg twice daily, may take mid-day dose if neededcont inue zoloft 100mg daily depression 58 659023 F53.0 continue zoloft to 100mg dailyrtc 3 week appt schedulede ncouraged getting in with therapist. card for Opal Valentine given last visitalso info on weeding the garden support group and support internatio nal given last visit 4056 Jenny Barnes CNM, [facility] Main Office [address] [place] [address] 06/14/2024 16:31:05 06/15/2024 11:40:47 depression 8113290988 2108 F32.89 continue prozac 20mg dailyplan will be to increase dose of prozac at next [email or web address] Suicide hotline givenencou rage groups with support internatio nalrtc 1 week -in person-miguel angel ointment scheduled Anxiety 14411767 F41.9 Discussed buspar vs hydroxyzin e for anxiety. Kush would like to start with trying busparBusp ar 5mg twice a day. may take a mid-day dose if neededreco mmend therapy- Kush states she has the referrals that were given in the past.start ing couples therapy 4230 Jenny Barnes CNM, [facility] Main Office [address] [facility] [place] [address] 06/28/2024 10:04:41 06/28/2024 18:04:21 depression 0636049126 2109 F32.89 continue prozac 20mg dailydiscu ssed increasing prozac. plan will be to increase dose of prozac at next [id number] Suicide hotline givenencou rage groups with support internatio nalrtc week 2 weeks -appointme nt scheduled Anxiety 19134843 F41.9 Buspar 5mg twice a day. may take a mid-day dose if needed has not started buspar yet. will start todayrecom mend therapy 4610 Jenny Barnes CNM, [facility] Main Office [address] [place] [address] 07/26/2024 11:06:58 07/26/2024 14:30:25 depression 1192944837 2108 F32.89 increase prozac to 40mg [email or web address] Suicide hotline givenencou rage groups with support internatio nalrtc week 3 weeks -appointme nt scheduled Anxiety 62101626 F41.9 increase Buspar 15mg three times a day.recomm end therapy 5531 Jenny Barnes CNM, [facility] Main Office [address] [facility] [place] [address] 10/10/2024 10:30:47 10/11/2024 12:55:32 depression 01554986 F53.0 start pristiq 25mg dailyrtc 2 weeks appt schedulede ncouraged getting in with therapist. informatio n on Opal Ahlin and Shoshana Riki Anxiety 05770778 F41.9 Start Pristiq 25mg dailyrecom mend therapy 5691 Jenny Barnes CNM, [facility] Main Office [address] [facility] [place] [address] 10/24/2024 10:38:18 10/25/2024 13:13:22 depression 17045828 F53.0 never did start pristiq, discussed with her why SSRi not appropriat e due to not respoding well with SSRI's in the past. She is interested in starting cymbaltacy mbalta 30mg dailyrtc 2 weeks appt schedulede ncouraged getting in with therapist. informatio n on Opalsalas Valentine and Shoshana Riki Anxiety 84826951 F41.9 cymbalta 30mg dailyrecom mend therapy 5824 Jenny Barnes CNM, [facility] Main Office [address] [facility] [place] [address] 11/07/2024 11:37:29 11/08/2024 10:29:27 depression 95680303 F53.0 continue zoloft 50mgrtc 6 weeks appt schedulede ncouraged getting in with therapist. informatio n on Opal Ahlin and Shoshana Riki Anxiety 51386167 F41.9 continue zoloft 50mg daiy 6313 Jenny Barnes CNM, [facility] Main Office [address] [facility] [place] [address] 12/19/2024 11:32:55 12/20/2024 10:43:59 depression 80752473 F53.0 start venlafaxin e 37.5mgalre dy stopped zoloftmay want to try seroquel for anger and irritabili ty at next visitencou raged getting in with therapist. informatio n on Opal Valentine and Shoshana Crawford n to office in 2 weeksreinf orced taking meds consistant ly Anxiety 14738554 F41.9 start venlafaxin e 37.5mg daily 6412 Jenny Barnes CNM, [facility]- Main Office [address] [place] [address] 12/26/2024 10:59:03 12/26/2024 15:11:15 Anxiety 33328257 F41.9 I discussed with Kush her symptoms that suggest OCD, including intrusive thoughts about her baby's safety and perfection ist behaviors. I explained that OCD often involves intrusive thoughts and overchecki ng behaviors related to the baby.Start Lexapro 10mg daily, which can be effective for OCD symptomsEn couraged continued individual therapyDis cussed that SSRIs like Lexapro can help with obsessive thoughtsRe commended follow-up in three weeks to assess improvemen t depression 58 956462 F53.0 37420 I discussed with Kush her symptoms of depression , including lack of energy, wanting to stay in bed, and not feeling like she's showing up for her children as she should. We reviewed her medication history and discussed options for treatment. I explained that while Wellbutrin can be effective for depression , it is contraindi cated for anxiety and could potentiall y worsen her anxiety symptoms.S tart Lexapro 10mg daily in the morning (rather than starting at 5mg due to severity of symptoms)D iscussed that Lexapro addresses both depression and anxietyExp lained that Lexapro can be increased to 20mg if needed at follow-upA dvised taking medication consistent ly and setting reminders (alarm, placing by toothbrush , etc.)Discu ssed possibilit y of adding Wellbutrin at follow-up if depression symptoms persist anxiety 01977 37896 2338506 O99.345 F41.8 21510040 I discussed with Kush her anxiety symptoms, noting her TREASURE-7 score of 13 indicates moderate anxiety. We discussed how anxiety affects women particular ly during family developmen t and relationsh ip challenges . Start Lexapro 10mg daily to address anxiety symptoms Discussed that Lexapro is effective for both anxiety and depression Explained that Lexapro can help with obsessive thoughts Discussed possibilit y of adding BuSpar in the future if needed for anxiety symptoms 6794 Jenny Barnes CNM, [facility] Main Office [address] [place] [address] 01/23/2025 11:58:48 01/24/2025 10:14:13 depression 90693606 F53.0 99628 Increase Lexapro to 20mg daily in the morning Advised taking medication consistent ly and setting reminders (alarm, placing by toothbrush , etc.)Discu ssed possibilit y of adding Wellbutrin at follow-up if depression symptoms persist anxiety 29662 93462 0111675 O99.345 F41.8 42536492 increaseLe xapro 20mg daily to address anxiety symptomsDi scussed that Lexapro is effective for both anxiety and depression Explained that Lexapro can help with obsessive thoughtsDi scussed possibilit y of adding BuSpar in the future if needed for anxiety symptoms 7186 Jenny Barnes CNM, [facility] Main Office [address] [place] [address] 02/20/2025 12:35:21 02/21/2025 06:34:09 depression 78479368 F53.0 70760 continue Lexapro to 20mg daily in the morning Advised taking medication consistent ly and setting reminders (alarm, placing by toothbrush , etc.)Discu ssed possibilit y of adding Wellbutrin at follow-up if depression symptoms persist anxiety 00822 58940 4295060 O99.345 F41.8 72612727 I discussed with Kush her anxiety symptoms, particular ly her intrusive thoughts about her children's safety and public safety concerns. She described worrying about her son opening doors or falling in the pool while staying with grandparen ts, and positionin g herself near exits in public due to fear of mass shootings. These thoughts appear to be causing significan t distress without reaching the level of paranoia.P rescribed BuSpar 5 mg twice daily (morning around 8 AM and afternoon around 3 PM)Advised that a third midday dose can be added if neededDisc ussed that BuSpar is typically well-erick ated with minimal weight gain concernsEx plained that BuSpar is particular ly helpful for intrusive thoughts Feeling irritable 578165 07 R45.4 74876 I discussed Kush's ongoing irritabili ty and anger, which she reports is triggered by normal parenting situations but feels excessive. She is currently at the maximum dose of Lexapro (20 mg) which has provided some benefit but not complete resolution of symptoms.C ontinue Lexapro 20 mg dailyDiscu ssed potential future addition of low-dose Abilify (2-5 mg) if current regimen doesn't provide adequate reliefExpl ained that while Abilify could help with irritabili ty and rage, it may decrease milk supplyReco mmended working on gradually weaning from breastfeed ing, starting with daytime feedings Fatigue 88824718 R53.83 36751294 I addressed Kush's complaint of feeling tired all the time despite generally good sleep.Orde red laboratory tests including thyroid function, vitamin D, vitamin B, hemoglobin , and CMPDiscuss ed that breastfeed ing demands may be contributi ng to fatigueSug gested that gradually weaning may help improve energy levels Scheduled telehealth appointmen t for March 20, 2025, at 8:30 AMWill reassess response to BuSpar and need for any medication adjustment sWill review laboratory results when available 7572 Jenny Barnes CNM, [facility]- Main Office [address] [place] [address] 03/19/2025 09:32:08 03/20/2025 06:37:06 depression 28596087 F53.0 41289 Patient reports feeling more depressed than not with easy irritabili ty and intrusive catastroph ic thoughts, though she notes improvemen t in feelings of worthlessn ess since securing employment . She continues to experience fatigue despite taking Lexapro. We discussed medication options, including adding Buspar for intrusive thoughts versus starting Wellbutrin for depression and irritabili ty. I explained that Wellbutrin can be stimulatin g and may worsen anxiety but could help with depressive symptoms. The patient expressed interest in trying Wellbutrin based on a family friend's positive experience with similar symptoms. Start Wellbutrin XL 150 mg daily in the morning (lowest extended-r elease dose) Continue Lexapro at 20mg in the morning Complete previously ordered lab work at [facility] (vitamin B12, CBC, vitamin D, CMP, TSH,) Have primary care lab results showing low B12 sent to office Follow up in one month (April 16, 2025) to assess response to medication changes If doing well at follow-up, will consider prescribin g three months' supply of medication s anxiety 78899 36754 8269461 O99.345 F41.8 28003367 continue lexapro 20mg daily Feeling irritable 602041 07 R45.4 39952 I discussed Kush's ongoing irritabili ty and anger, which she reports is triggered by normal parenting situations but feels excessive. She is currently at the maximum dose of Lexapro (20 mg) which has provided some benefit but not complete resolution of symptoms.C ontinue Lexapro 20 mg dailyDiscu ssed potential future addition of low-dose Abilify (2-5 mg) if current regimen doesn't provide adequate reliefExpl ained that while Abilify could help with irritabili ty and rage, it may decrease milk supplyReco mmended working on gradually weaning from breastfeed ing, starting with daytime feedings Fatigue 29627552 R53.83 78077250 Patient continues to report significan t fatigue. Recent labs from primary care show low vitamin B12 levels, which may be contributi ng to her symptoms. We discussed the importance of completing comprehens peri lab work to identify any other potential medical causes of fatigue.Co mplete [facility] sent to office for reviewCons ider B12 supplement ation based on lab results (to be determined after review)Mon itor for improvemen t in energy levels with Wellbutrin , which may help with fatigue 8026 Jenny Barnes CNM, [facility]- Main Office [address] [place] [address] 04/19/2025 09:56:24 04/20/2025 06:23:21 depression 96757081 F53.0 99154 Kush reports she has been taking Lexapro [...] as Wellbutrin can sometimes exacerbate anxiety anxiety 33949 14787 8824890 O99.345 F41.8 38852990 continue lexapro 20mg daily Fatigue 53475693 R53.83 19715798 Kush reports significan t fatigue despite starting Wellbutrin . She describes being exhausted 24/. She works 12-hour shifts and has variable [...] appointmen t in one month 8296 Jenny Barnes CNM, [facility]- Main Office [address] [place] [address] 05/09/2025 15:12:45 05/13/2025 16:05:32 depression 60491241 F53.0 26777 I discussed with Kush the significan t [...] CBC, vitamin B12, and thyroid tests at [facility] Suggested couples therapy as a potential interventi on for [facility] es Follow up in two weeks on Wednesday, May 21, 2025, at 9AM anxiety 01120 04914 9443633 O99.345 F41.8 56565429 continue lexapro 20mg dailystart Buspar 5mg twice daily. may take mid day dose if needed Fatigue 29838578 R53.83 46964425 Complete previously ordered lab work to evaluate for medical causes of fatigue (B12, CBC, vitamin D, CMP, and thyroid panel)Disc ussed importance of consistent sleep schedule and adequate rest for mental healthCont inue Wellbutrin 150mg which may help with energy levels once therapeuti c effect is establishe dReassess at follow-up appointmen t in 2 weeks [id number] Jenny Barnes CNM, [facility]- Main Office [address] [place] [address] 05/21/2025 10:03:19 05/22/2025 16:38:01 depression [id number] F53.0 42465 Kush reports feeling okay but stressed due [...] dizziness Follow up in one month anxiety 52150 [id number] O99.345 F41.8 [id number] continue lexapro 20mg dailystart Buspar 5mg twice daily. may take mid day dose if neededrtc in 1 month Fatigue [id number] R53.83 [id number] Complete previously ordered lab work to evaluate for medical causes of fatigue (B12, CBC, vitamin D, CMP, and thyroid panel)Disc ussed importance of consistent sleep schedule and adequate rest for mental healthCont inue Wellbutrin 150mg which may help with energy levels once therapeuti c effect is establishe dReassess at follow-up appointmen t in 4 weeks 8891 Jenny Barnes CNM, [facility]- Main Office [address] [place] [address] 06/18/2025 10:02:35 06/19/2025 20:24:40 depression [id number] F53.0 95789 uKsh reports feeling irritable all the time and [...] to assess response to medication changes anxiety 68431 44795 [id number] O99.345 F41.8 [id number] weaning off of lexapro due to weight gainnot taking buspar Fatigue 44694897 R53.83 [id number] encourage exercise, watching dietlabs recent cbc and cmp done at [facility]. will check thyroid panel, vit d and vit b Irritabili ty and anger [id number] R45.4 657700 recommend abilify 2mgAlexis is not willing to start this due to increase risk of weight gain 9079 Jenny Barnes CNM, [facility] Main Office [address] [place] [address] 07/02/2025 14:38:48 07/03/2025 19:24:04 depression [id number] F53.0 42548 I discussed with Kush the importance of [...] will then schedule patient for [facility] to [facility] any medication changes based on genetic testing results Emphasized the importance of medication consistenc y and adherence to the prescribed regimen Encouraged patient to pursue therapy in addition to medication management anxiety 75780 34303 [id number] O99.345 F41.8 [id number] Restart sertraline (Zoloft) 50mg daily, preferably at night Restart Wellbutrin 150mg daily, preferably in the morning Ordered [employer] genetic testing to help determine optimal medication choices Encouraged patient to pursue therapy in addition to medication management Irritabili ty and anger [id number] R45.4 878822 recommend abilify 2mgAlexis is not willing to start this due to increase risk of weight gain Noncomplia nce with medication regimen [id number] Z91.148 [id number] II discussed with Kush her history of [...] need for long-term medication management Suicidal thoughts [id number] 6 R45.164 [id number] Patient denies active suicidal ideation, plan, or [...] 988, call 911 or go to the [facility] Health Concerns Section Related Observation LastModified by Organization Detai ls LastModified Time None Recorded Concern Status LastModified by Organization Details LastModified Time None Recorded Advance Directives Directive None Recorded Payers Insurance Date Sequence Insurance Name Policy Number Policy Bailey Covered Member ID Bailey Member ID Guarantor Name 07/27/2025 1 [facility] ON OR AFTER 02/20/21 (MEDICAID REPLACEMENT - HMO) Kush Jaffe [id number] Kush Jaffe Notes Date Note Type Note Provider Name and Address Organization Details Recorded Time 04/19/2025 text/html History of present illness Kush Jaffe is a 24-year-old female presenting for a follow-up appointment. 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 She reports that she plans to get her [employer] certification in August. Her work schedule consists of 12-hour shifts on Tuesdays and Wednesdays, plus alternating weekends (either Wednesday or Wednesday). She reports that she started taking Wellbutrin 150mg approximately seven days ago (on April 13, 2025), after having the prescription for some time but needing to talk herself into taking it. She states that she has not yet felt the energizing effects that can come with Wellbutrin, reporting that she is exhausted 15/03. She notes that her irritability has been maintained a little bit since starting the medication but states that still some things just get underneath my skin. She reports recent relationship difficulties, stating that she and her partner (Vasile) had a huge argument two weeks ago which resulted in her asking him to stay at his grandparents' house for a while. She describes the home environment as being calmer without him there, noting there's no angry person in the house, there's like no arguing, and it feels nice. She mentions that Vasile suggested she get some help, to which she responded that she has already been seeking help. She denies feelings of worthlessness or hopelessness. She denies thoughts of harming herself or others. She denies hallucinations, though she describes one incident where she momentarily mistook bedcovers for her daughter Jaye, quickly realizing her mistake. She reports having multiple children, including a baby and a daughter named Bita who recently started school. Regarding sleep, she reports going to bed around 8:00 PM some nights, but other nights not until 10:00 or 11:00 PM. She wakes up at 5:30-5:50 AM for work. Her appetite has decreased somewhat recently, noting the other day, I didn't eat till when I got home from work, like dinner, though she sometimes feels extremely hungry. Past Medical History Illness, Injuries, Operations, and Treatment: Not provided Previous Psychiatric or Mental Health Treatment: Not provided Previous Psychiatric or Mental Health Hospitalization: Not provided Medication History Currently taking Lexapro 20mg and recently started Wellbutrin 150mg (started April 13, 2025, approximately 7 days ago). Jenny Barnes CNM, [facility] [address] [place], [address], [facility] 04/19/2025 20:39:27 05/09/2025 text/html History of present illness Kush [...] increased symptoms despite continuing these medications. Jenny Barnes, JOANA, PMHNP- [address], [place], [address], [facility] 05/09/2025 16:29:55 05/21/2025 text/html History of present illness Kush Jaffe is a 24-year-old female presenting for a follow-up psychiatric appointment. She reports feeling okay but mentions being stressed due to her son's illness. She explains that her son, Levon, has been sick since April. tely ruled out. She plans to take her son to his speech and hearing clinic director, Dr. Rose in [place], later today. Regarding her own mental health [...] - Patient has not initiated treatment Jenny Barnes CNM, [facility]- [address], [place], [address], [facility] 05/21/2025 10:45:49 06/18/2025 text/html History of present illness Kush [...] is causing weight gain, noting that her [id number] who is also on Lexapro has experienced [...] been taking this medication Jenny Barnes CNM, [facility] [address], [place], [address], [facility] 06/18/2025 10:33:04 07/02/2025 text/html History of present illness Kush [...] child named Preet. She recently moved from [facility] to [place]. Past Medical History Illness, Injuries, Operations, and [...] not stated beyond general medication non-adherence Jenny Barnes CNM, PMHNP- [address], [place], [address], [facility] 07/02/2025 16:30:12 OBGyn Episode No OBEpisode recorded.
== END 2025-08-08 11:59 | disposition home or self-care (01) ==
PROVIDERS: Emergency Provider Nurse Practitioner
DX: J06.9 Acute upper respiratory infection, unspecified (principal); Z20.822 Contact with and (suspected) exposure to COVID-19
CPT/HCPCS: 87081; 87426; 87804; 87880; 99213; G0463